=== PATIENT | male | born 1970 | race Caucasian/White ===

== ENCOUNTER → 2019-11-02 11:51 | Outpatient (CLI) | payer SELFPAY ==
[2019-11-02 11:45] VITALS: BMI 39.6
[2019-11-02 12:54] LABS: Hemoglobin A1c 7.5 % (4.2-6.3)
== END ==
LOC: MTLAB 11:56
PROVIDERS: Referring Provider Physician Assistant Surgical; Visit Provider Physician Assistant Surgical
DX: Z02.89 Encounter for other administrative examinations (principal)
CPT/HCPCS: 36415; 83036

== ENCOUNTER 2019-11-05 10:20 | Day surgery (SDC) | payer BC, SELFPAY ==
[2019-11-02 11:45] VITALS: BMI 39.6
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
[2019-11-05] VITALS (7 sets, daily range): BP systolic 114–129; BP diastolic 74–85; PULSE 61–68; RESP 16; TEMP 36.4–36.9; O2SAT 94–99; BMI 39.6
[2019-11-05 10:45] LABS: Bedside Glucose 114 mg/dL (70-110)
[2019-11-05] MEDS: Lactated Ringers 1,000 ML 75 ML IV (10:58)
--- NOTE | 2019-11-05 12:00 | EGD_PTH ---
PATIENT: UMER CLIFFORD LOC: EN U#:[id number] AGE/SX: 49/M ROOM: RE11/05/[address]: Dr. Teetee Lambert MD : 1970 BED: DIS: 11/05/2019 SPEC #: [id number] RECD: 11/05/19 13:25 STATUS: BRIANNA PIA #: [id number] CAM[place]: 11/05/19 12:[address]: Teetee Lambert DEPT: SURGICAL PATHOLOGY RECD BY: Eagle Velazquez ENTERED: 11/05/19 13:31 SP TYPE: EGD BIOPSY OTHR DR: Chantal Barron, MONE Tissues: A - Duodenum, NOS B - Duodenum, NOS C - Gastric mucous membrane D - Gastric mucous membrane E - Sigmoid colon biopsy Procedures: Special Stain Group II Surgery Specimen Level IV Alcian Blue/PAS (control) HEADER OPERATION: Colonoscopy, EGD ([facility] [place]) PRE-OP DIAGNOSIS: Abdomen pain; history lap band surgery, loose stool/diarrhea TISSUE SUBMITTED: A - Second portion duodenum biopsy, B - Duodenal biopsy, C - Antral biopsy for histo and H. pylori, D - GE junction biopsy, E - Sigmoid polyp biopsy MICROSCOPIC DIAGNOSIS A. Second portion duodenum, biopsy: Fragments of small intestinal mucosa, no pathologic diagnosis. B. Duodenal biopsy: A fragment of small intestinal mucosa, no pathologic diagnosis. C. Antral biopsy: Fragments of gastric mucosa with minimal chronic inflammation. See comment. D. GE junction, biopsy: Fragments of gastroesophageal mucosa with acute and chronic inflammation. Intestinal metaplasia (goblet cell metaplasia) is not identified. See comment. E. Sigmoid polyp, biopsy: Fragments of colonic mucosa with focal changes consistent with early tubular adenoma. SJ:rg 11/06/19 COMMENT C. The results of immunohistochemistry for Helicobacter pylori will be reported separately ([id number]). D. Alcian blue/PAS stain with matched control is used in the evaluation of the specimen. MICROSCOPIC DESCRIPTION Slides are reviewed. GROSS DESCRIPTION A - Received in fixative is one container labeled with the patient's name and designated second portion duodenum biopsy. The specimen consists of two irregular fragments of light anand soft tissue that in aggregate measure 0.5 x 0.5 x 0.1 cm. The specimen is totally submitted in one cassette. B - Received in fixative is one container labeled with the patient's name and designated duodenal biopsy. The specimen consists of one irregular fragment of light anand soft tissue that measures 0.5 x 0.2 x 0.1 cm. The specimen is totally submitted in one cassette. C - Received in fixative is one container labeled with the patient's name and designated antral biopsy. The specimen consists of multiple irregular fragments of light anand soft tissue that in aggregate measure 0.3 x 0.2 x 0.1 cm. The specimen is totally submitted in one cassette. D - Received in fixative is one container labeled with the patient's name and designated GE junction biopsy. The specimen consists of multiple irregular fragments of light anand soft tissue that in aggregate measure 1.5 x 0.2 x 0.1 cm. The specimen is totally submitted in one cassette. E - Received in fixative is one container labeled with the patient's name and designated sigmoid polyp biopsy. The specimen consists of two irregular fragments of light anand soft tissue that in aggregate measure 0.6 x 0.5 x 0.1 cm. The specimen is totally submitted in one cassette. / AM:chandan 11/05/19 TC: CPT: 70771 x5, 88793
--- NOTE | 2019-11-05 12:00 | IMM_PTH ---
PATIENT: UMER CLIFFORD LOC: EN U#:[id number] AGE/SX: 49/M ROOM: RE11/05/[address]: Dr. Teetee Lambert MD : 1970 BED: DIS: 11/05/2019 SPEC #: [id number] RECD: 11/05/19 14:33 STATUS: BRIANNA REAntwan #: [id number] CAMDEN: 11/05/19 12:[address]: Teetee Lambert DEPT: IMMUNOHISTOCHEMISTRY RECD BY: Meri Patel ENTERED: 11/05/19 14:34 SP TYPE: IMMUNO OTHR DR: MONE Solis Tissues: C - Stomach, NOS Procedures: H Pylori (initial) PHYSICIAN & INSTITUTION [place] [id number] SPECIMEN INFORMATION: Tissue Source: C - Antral biopsy Clinical Info: Abdomen pain, history lap band surgery, loose stool/diarrhea Specimen Number: [id number] CPT code: 98262 METHODOLOGY: Deparaffinized sections of prefer/formalin-fixed tissue or PAP/DQ stained slides are incubated with monoclonal/polyclonal antibodies/oligonucleotide probes. Localization is made via biotin free immunoperoxidase method. Appropriate controls are performed and reacted as expected. Results on target cell population are indicated in the following table: RESULTS: ANTIBODY / CLONE RESULT Block C H Pylori (polyclonal) negative These tests were developed and their performance characteristics determined by [facility]. They may not have been cleared or approved by the U.S. Food and Drug Administration. The FDA has determined that such clearance or approval is not necessary. INTERPRETATION: C. Antral biopsy: Negative for Helicobacter pylori organisms. SJ:chandan 11/06/19
--- NOTE | 2019-11-05 12:13 | OP.EGD_ITS ---
Patient Name: Alexander Bailey Procedure Date: 11/05/2019 11:00 AM Date of : 1970 Age: 49 Procedure: Upper GI endoscopy Indications: Generalized abdominal pain Providers: Teetee Lambert MD Referring MD: Teetee Lambert MD Medicines: See the Anesthesia note for documentation of the administered medications Patient Profile: Refer to note in patient chart for documentation of history and physical. Complications: No immediate complications. Procedure: Pre-Anesthesia Assessment: - see anesthesia note After obtaining informed consent, the endoscope was passed under direct vision. Throughout the procedure, the patient's blood pressure, pulse, and oxygen saturations were monitored continuously. The gastroscope was introduced through the mouth, and advanced to the second part of duodenum. The upper GI endoscopy was accomplished without difficulty. The patient tolerated the procedure well. Scope In: 11:20:46 AM Scope Out: 11:31:52 AM Total Procedure Duration Time 0 hours 11 minutes 6 seconds Findings: The second portion of the duodenum was normal. Biopsies were taken with a cold forceps for histology to rule out celiac sprue. The duodenal bulb appeared mildly erythematous - biopsies were taken with cold forceps for histology. Verification of patient identification for the specimens was done by the nurse. Estimated blood loss was minimal. Striped mildly erythematous mucosa without bleeding was found in the gastric antrum. Biopsies were taken with a cold forceps for histology. Estimated blood loss was minimal. The Z-line was irregular. Biopsies were taken with a cold forceps for histology. Verification of patient identification for the specimen was done by the nurse. Estimated blood loss was minimal. No hiatal hernia was noted Impression: - Normal second portion of the duodenum. Biopsied. - Erythematous mucosa in the antrum. Biopsied. - Z-line irregular. Biopsied. Recommendation: - Discharge patient to home (ambulatory). - Resume previous diet. - Return to physician operational assistant in 1 week. - Continue present medications. Procedure Code(s): --- Professional --- 02935, Esophagogastroduodenoscopy, flexible, transoral; with biopsy, single or multiple Diagnosis Code(s): --- Professional --- K31.89, Other diseases of stomach and duodenum K22.8, Other specified diseases of esophagus R10.84, Generalized abdominal pain CPT copyright 2017 [employer]. All rights reserved. The codes documented in this report are preliminary and upon pillow agent review may be revised to meet current compliance requirements. MD Teetee Bull MD 11/05/2019 12:13:23 PM This report has been signed electronically. Number of Addenda: 0 Note Initiated On: 11/05/2019 11:00 AM
--- NOTE | 2019-11-05 12:16 | OP.COLON_ITS ---
Patient Name: Alexander Bailey Procedure Date: 11/05/2019 11:34 AM Date of : 1970 Age: 49 Procedure: Colonoscopy Indications: Generalized abdominal pain Providers: Teetee Lambert MD Referring MD: Teetee Lambert MD Medicines: See the Anesthesia note for documentation of the administered medications Patient Profile: Refer to note in patient chart for documentation of history and physical. Last Colonoscopy: several years ago. Complications: No immediate complications. Procedure: Pre-Anesthesia Assessment: - see anesthesia note After I obtained informed consent, the scope was passed under direct vision. Throughout the procedure, the patient's blood pressure, pulse, and oxygen saturations were monitored continuously. The Colonoscope was introduced through the anus and advanced to the cecum, identified by appendiceal orifice and ileocecal valve. The colonoscopy was performed without difficulty. The patient tolerated the procedure well. The quality of the bowel preparation was adequate to identify polyps 6 mm and larger in size. Scope In: 11:35:51 AM Scope Withdrawal Time 0 hours 19 minutes 45 seconds Scope Out: 12:07:02 PM Total Procedure Duration Time 0 hours 31 minutes 11 seconds Findings: The perianal and digital rectal examinations were normal. Pertinent negatives include normal sphincter tone. A 3 to 8 mm polyp was found in the distal sigmoid colon. The polyp was sessile. The polyp was removed with a cold biopsy forceps. Resection and retrieval were complete. Verification of patient identification for the specimen was done by the nurse. Estimated blood loss was minimal. Non-bleeding internal hemorrhoids were found. Impression: - One 3 to 8 mm polyp in the distal sigmoid colon, removed with a cold biopsy forceps. Resected and retrieved. - Non-bleeding internal hemorrhoids. Recommendation: - Repeat colonoscopy date to be determined after pending pathology results are reviewed for surveillance based on pathology results. - Return to physician field assistant in 1 week. - Continue present medications. Procedure Code(s): --- Professional --- 85633, Colonoscopy, flexible; with biopsy, single or multiple Diagnosis Code(s): --- Professional --- D12.5, Benign neoplasm of sigmoid colon K64.8, Other hemorrhoids R10.84, Generalized abdominal pain CPT copyright 2017 [employer]. All rights reserved. The codes documented in this report are preliminary and upon pharmacy retail support specialist review may be revised to meet current compliance requirements. MD Teetee Bull MD 11/05/2019 12:15:55 PM This report has been signed electronically. Number of Addenda: 0 Note Initiated On: 11/05/2019 11:34 AM
== END 2019-11-05 12:58 | disposition home or self-care (01) ==
LOC: EN 10:25 → AC 10:26
PROVIDERS: Family Provider Registered Nurse; PCP Registered Nurse; Referring Provider Surgery; Visit Provider Surgery
PROC: 0DJD8ZZ Inspection of Lower Intestinal Tract, Via Natural or Artificial Opening Endoscopic (ICD-10-PCS; CPT 45378; principal; 2019-11-05 11:55)
DX: K29.50 Unspecified chronic gastritis without bleeding (principal); D12.5 Benign neoplasm of sigmoid colon; K64.8 Other hemorrhoids; E11.9 Type 2 diabetes mellitus without complications; F41.9 Anxiety disorder, unspecified; G47.30 Sleep apnea, unspecified; F17.200 Nicotine dependence, unspecified, uncomplicated; Z98.84 Bariatric surgery status; Z79.84 Long term (current) use of oral hypoglycemic drugs; Z79.899 Other long term (current) drug therapy
CPT/HCPCS: 43239; 45380; 82962; 88305; 88313; 88342; J7120

== ENCOUNTER 2019-12-10 22:41 | Emergency (ER) | payer OTHER, BC, SELFPAY ==
[2019-11-05 10:40] VITALS: BMI 39.6
[2019-12-10 22:42] VITALS: BP 133/83; PULSE 84; RESP 20; TEMP 35.7; O2SAT 96; BMI 39.6
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
--- NOTE | 2019-12-10 23:01 | RAD_ITS ---
STUDY: X-RAY - LUMBAR SPINE REASON FOR EXAM: Male, 49 years old. FELL THIS MORNING ON ICE. C/O LOW BACK PAIN RADIATING TO HIS HIPS, NUMBNESS IN HIS FEET TECHNIQUE: 3 view(s) of the lumbar spine were obtained. COMPARISON: None FINDINGS: There is straightening of the normal lumbar lordosis. There is no substantial scoliosis. There is a normal alignment of the vertebrae. Minimal spondylosis of the endplates. Normal disc space heights. Facet arthropathy L4-5, 5 S1, less L3-4. Port-like device over the left mid abdomen. Bilateral mid abdominal calcification, nephrolithiasis is not excluded. RAD/Lumbar Spine 2 or 3 Views IMPRESSION: Degenerative changes most distended along the facet joints. There is no acute displaced fracture or dislocation. Other nonacute findings as outlined above. Electronically Signed: Jessica Marie MD at 23:58 EST , Service support ,
--- NOTE | 2019-12-10 23:01 | CT_ITS ---
STUDY: CT CERVICAL SPINE WITHOUT CONTRAST REASON FOR EXAM: Male, 49 years old. S/P FALL THIS AM WITH HEAD/NECK/ SHOULDER PAIN RADIATION DOSAGE (If Supplied By Facility): CTDIvol = ( 25.14 ) mGy, DLP = ( 576.16 ) mGycm TECHNIQUE: High resolution transaxial imaging was performed without contrast material. Sagittal and coronal images were reconstructed. Individualized dose optimization techniques were used for this CT. COMPARISON: None FINDINGS: Normal craniovertebral junction. Normal anterior atlantoaxial articulation. Normal odontoid process. There is straightening of the normal cervical lordosis. Normal vertebral bodies and posterior osseous elements. C2-3: Mild left facet arthropathy. C3-4: Arthropathy of the right uncovertebral joint with large spurring causing severe right neural foraminal narrowing. C4-5: Arthropathy of the right uncovertebral joint with spurring causing moderate right neural foraminal narrowing. C5-6: Arthropathy of the bilateral uncovertebral joint with moderate left, moderate to severe right neural foraminal narrowing. C6-7: There is sclerosis of the endplate, anterior and posterior spurring, loss of the disk height, severe left, moderate right uncovertebral of the bilateral apophyseal joints. There is stenosis of the spinal canal. There is severe left, moderate right narrowing of the neuroforamina. C7-T1: Mild arthropathy of the uncovertebral joints. Normal visualized soft tissue structures. CT/Spine Cervical without Contras IMPRESSION: Multilevel degenerative changes, as described above. There is no acute displaced fracture or dislocation. There is straightening of the normal lordotic curve, a nonspecific finding, which may be due to positioning or which might be due to muscle spasm. Electronically Signed: Jessica Marie MD at 23:56 EST , Service support ,
--- NOTE | 2019-12-10 23:02 | ED.VIS.GEN ---
History of Present Illness Chief Complaint: Fall Narrative: Patient is a 49-year-old male who presents after a fall. Twelve hours ago while [place] of state for work he was walking down customers driveway. He had a patch of ice. He states he slid about 4 feet before falling backwards and landing on his lower back and shoulders. He believes he was turned to the left a little bit as the pain is worse on the left side. Currently he complains of lower back pain with radiation into the buttocks and hips. He has intermittently had numbness in his feet which he does not have currently. He complains of pain on the left side of the neck radiating towards the shoulder. It is painful to turn his head in either direction. He also complains of a headache. He is not anticoagulated. There was no loss of consciousness at the time of the fall. No vomiting. He denies chest pain or difficulty breathing. No abdominal pain. He otherwise denies any recent illness. Past Medical History - Allergies and Home Meds Allergies/Adverse Reactions: Allergies Sulfa (Sulfonamide Antibiotics) Allergy (Verified 12/10/19 22:41) Swelling Primary Care Physician: Chantal Barron NP-C [Primary Care Provider] - Past Medical History: - - Diabetes Smoking Status: Current every day smoker Review of Systems All systems negative except as indicated General: Denies: Fever Eyes: Denies: Visual changes - bilaterally ENT: Denies: Bilateral ear pain Cardiovascular: Denies: Chest pain Respiratory: Denies: Dyspnea Gastrointestinal: Denies: Abdominal pain, Nausea, Vomiting Musculoskeletal: Reports: Neck pain, Back pain Skin: Denies: Rash Neurological: Reports: Headache Hematologic: Denies: Easy bruising Allergy: Denies: Uticaria Physical Exam Vital Signs/Narrative: Vital Signs Temp Pulse Resp BP Pulse Ox 12/10/19 22:42 96.3 F L 84 20 H 133/83 H 96 Inital Vital Signs reviewed: Yes General: Well nourished, Well developed Head: Normocephalic, Atraumatic, - - Occipital scalp tenderness, no palpable skull fracture Eyes: EOMI ENT: Moist mucous membranes Neck: - - Patient has bilateral paraspinal neck tenderness which is worse on the left side extending in the distribution of the trapezius Cardiovascular: Regular rate, Regular rhythm Respiratory: No distress, CTA bilaterally Abdomen: Soft, Nontender, Nondistended Back: - - Midline and paraspinal lumbar tenderness Extremities: - - Active full range of motion x4, no tenderness of the extremities Skin: Normal color Neurological: Alert, - - GCS 15 with no focal or lateralizing neurological deficits Psychological: Normal affect Diagnostic/Tx/Re-eval Impressions Brain CT 12/10/19 23:01 IMPRESSION: Normal unenhanced CT scan of the brain. Mild soft tissue injury. Electronically Signed: Jessica Marie MD at 23:48 EST , Service support , Cervical Spine CT 12/10/19 23:01 IMPRESSION: Multilevel degenerative changes, as described above. There is no acute displaced fracture or dislocation. There is straightening of the normal lordotic curve, a nonspecific finding, which may be due to positioning or which might be due to muscle spasm. Electronically Signed: Jessica Marie MD at 23:56 EST , Service support , Lumbar Spine X-Ray 12/10/19 23:01 IMPRESSION: Degenerative changes most distended along the facet joints. There is no acute displaced fracture or dislocation. Other nonacute findings as outlined above. Electronically Signed: Jessica Marie MD at 23:58 EST , Service support , 12/10/19 23:01 Brain/Head without Contrast [CT] Stat Lumbar Spine 2 or 3 Views [RAD] Stat Spine Cervical without Contras [CT] Stat - Medical Decision Making Imaging negative for acute fractures as above. Patient was advised on supportive care. He was provided with prescriptions for naproxen and Flexeril. He will follow-up with Worker's Comp. Patient discharged. ED Disposition - Plan for ED Patient: Disposition: Home or Assisted Living Diagnosis: Lumbosacral strain, Cervical strain, Closed head injury Instructions: FALL, Mechanical, Neck Sprain/Strain, Back Sprain/Strain, HEAD INJURY, No Wake-Up (Adult) Prescriptions: cycloBENZAPRine HCl [Flexeril] 10 mg PO TID PRN #20 tab PRN Reason: Muscle Spasm Prescription Printed Naproxen [Naprosyn] 500 mg PO BID #20 tab Prescription Printed Referrals: Chantal Barrno, ADJUNCT INSTRUCTOR CHEMISTRY-C [Primary Care Provider] -
[2019-12-10] MEDS: Naproxen 500 MG Tablet PO (23:16)
[2019-12-11] MEDS: cycloBENZAPRine HCl 10 MG Tablet PO (00:30)
[2019-12-11 00:32] VITALS: BP 132/79; PULSE 81; RESP 18; O2SAT 100
--- NOTE | 2019-12-11 00:32 | ED.RN ---
THIS NURSE REVIEWED D/C INSTRUCTIONS WITH PT AND LIVE. BOTH VERBALIZED UNDERSTANDING OF INSTRUCTIONS. PT DENIES FURTHER NEEDS OR QUESTIONS AT THIS TIME.
== END 2019-12-11 00:34 | disposition home or self-care (01) ==
PROVIDERS: Emergency Provider Emergency Medicine; PCP Registered Nurse
DX: S39.012A Strain of muscle, fascia and tendon of lower back, initial encounter (principal); S16.1XXA Strain of muscle, fascia and tendon at neck level, initial encounter; S09.90XA Unspecified injury of head, initial encounter; E11.9 Type 2 diabetes mellitus without complications; F17.200 Nicotine dependence, unspecified, uncomplicated; Z79.84 Long term (current) use of oral hypoglycemic drugs; W00.0XXA Fall on same level due to ice and snow, initial encounter; Y93.01 Activity, walking, marching and hiking; Y92.008 Other place in unspecified non-institutional (private) residence as the place of occurrence of the external cause; Y99.0 Civilian activity done for income or pay
CPT/HCPCS: 70450; 72100; 72125; 99283

== ENCOUNTER 2020-09-18 05:40 | Emergency (ER) | payer BC, SELFPAY ==
[2019-12-19 06:29] VITALS: BMI 39.5
[2020-09-18 05:40] VITALS: BP 137/86; PULSE 76; RESP 16; TEMP 36.1; O2SAT 97; BMI 40.6
--- NOTE | 2020-09-18 05:56 | RAD_ITS ---
HISTORY: S/P FALLC/O BILAT ANTERIOR KNEE PAIN AND PAIN WITH LIMITED ROM RT SHOULDER COMPARISON: None FINDINGS: # of images incl. paperwork: 4 XR Knee Complete 4 Views or More: Right BONE AND JOINTS: No acute fracture or subluxation. Enthesophyte at the insertion of the quadriceps tendon on the patella Osteophyte formation seen at the lateral patella SOFT TISSUES: Minimal soft tissue swelling anterior to the patella and proximal patellar tendon in the subcutaneous tissue No radiopaque foreign body. RAD/Knee 4 or More Views IMPRESSION: No acute pathology If symptoms persist, repeat study in 10-14 days or sooner if clinically indicate at 0649 Reported and signed by: Carolyn Spencer DO Electronically Signed: Carolyn Spencer DO at 6:47 EST Tel , Service support ,
--- NOTE | 2020-09-18 05:57 | RAD_ITS ---
STUDY: X-RAY - LEFT TIBIA AND FIBULA REASON FOR EXAM: Male, 50 years old. S/P FALL -- C/O BILAT ANTERIOR KNEE PAIN AND PAIN WITH LIMITED ROM RT SHOULDER -- CONCERN FOR PINE DISLODGMENT TECHNIQUE: 2 view(s) of the tibia and fibula were obtained. COMPARISON: None. FINDINGS: No acute fracture or dislocation. Pin fixation is seen overlying the lateral tibia. The soft tissue structures are unremarkable. RAD/Tibia & Fibula 2 Views IMPRESSION: No acute fracture or dislocation. Electronically Signed: Geraldo Spence, at 6:51 EST Tel , Service support ,
--- NOTE | 2020-09-18 05:57 | RAD_ITS ---
HISTORY: S/P FALLC/O BILAT ANTERIOR KNEE PAIN AND PAIN WITH LIMITED ROM RT SHOULDER COMPARISON: None FINDINGS: # of images incl. paperwork: 5 XR Shoulder Min 2 Views: Right BONE AND JOINTS: No acute fracture or subluxation. Acromioclavicular arthropathy Bone anchors are seen within the right humeral head. SOFT TISSUES: Unremarkable. No radiopaque foreign body. The visualized right lung apex is unremarkable RAD/Shoulder min 2 Views IMPRESSION: No acute pathology If symptoms persist, repeat study in 10-14 days or sooner if clinically indicate at 0649 Reported and signed by: Carolyn Spencer DO Electronically Signed: Carolyn Spencer DO at 6:48 EST Tel , Service support ,
--- NOTE | 2020-09-18 05:59 | ED.DCSUM_ITS ---
History of Present Illness Chief Complaint: Fall Informant: Patient Narrative: 50-year-old male presenting with bilateral knee pain as well as right shoulder pain. Patient states that he had a mechanical fall while in the shower. He states that his left leg slid forward and externally rotated. He feels that his previous left ACL repair pin in his tibia was dislodged. Patient also has right lateral knee pain from hitting this on the tub when he slid. Patient states he tried to catch himself with his right arm and feels he may have torn his rotator cuff again. He had previous surgery many years ago at an outside facility. His left knee ACL repair was performed in [place] when he lived there 3 years ago. Patient denies head injury or LOC. 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 Past Medical History - Allergies and Home Meds Allergies/Adverse Reactions: Allergies Sulfa (Sulfonamide Antibiotics) Allergy (Verified 09/18/20 05:44) Swelling Primary Care Physician: Harrison Villela MD [STAFF PHYSICIAN] - Chantal Barron NP, CHINESE LANGUAGE PROFESSOR-C [Primary Care Provider] - Past Medical History: - - Diabetes, anxiety Surgical History: - - Left knee ACL repair, right shoulder rotator cuff repair Smoking Status: Current every day smoker Alcohol: Occasional Drugs: None Review of Systems General: Denies: Chills, Fever, Sweats Eyes: Denies: Visual changes - bilaterally, Diplopia ENT: Denies: Rhinorrhea, Sore throat Cardiovascular: Denies: Chest pain, Palpitations Respiratory: Denies: Dyspnea, Cough, Dyspnea on exertion Genitourinary: Denies: Dysuria, Hematuria, Frequency Musculoskeletal: Reports: - - Right shoulder pain, bilateral knee pain Skin: Denies: Rash, Wounds Neurological: Denies: Headache, Weakness, Numbness Physical Exam Vital Signs/Narrative: Vital Signs Temp Pulse Resp BP Pulse Ox 09/18/20 05:40 96.9 F L 76 16 137/86 H 97 Inital Vital Signs reviewed: Yes General: Well nourished, No Acute Distress Head: Normocephalic, Atraumatic Eyes: Perrl ENT: Moist mucous membranes, No rhinorrhea Cardiovascular: Regular rate, Regular rhythm Respiratory: No distress, CTA bilaterally Extremities: Tenderness - Right knee has tenderness to palpation along the right lateral joint line. No patellar tenderness. No obvious joint effusion. Extensor mechanism is intact. Left knee has inferiolateral tenderness on the proximal tibia there appears to be a palpable foreign body where stated ACL anchor screw is., - - Tenderness to palpation of the right shoulder anteriorly near the AC joint. Patient is able to flex his shoulder up to 45 degrees. 1 left shoulder is externally rotated he is only able to abduct his shoulder up to 45 degrees. R Neurological: Alert, Oriented x3 Psychological: Normal affect, Normal Mood Diagnostic/Tx/Re-eval Clinical Impression(s) from Imaging Studies Knee X-Ray 09/18/20 05:56 IMPRESSION: No acute pathology If symptoms persist, repeat study in 10-14 days or sooner if clinically indicate at 0649 Reported and signed by: Carolyn Spencer DO Electronically Signed: Carolyn Spencer DO at 6:47 EST Tel , Service support , Shoulder X-Ray 09/18/20 05:57 IMPRESSION: No acute pathology If symptoms persist, repeat study in 10-14 days or sooner if clinically indicate at 0649 Reported and signed by: Carolyn Spencer DO Electronically Signed: Carolyn Spencer DO at 6:48 EST Tel , Service support , Tibia/Fibula X-Ray 09/18/20 05:57 IMPRESSION: No acute fracture or dislocation. Electronically Signed: Geraldo Spence at 6:51 EST Tel , Service support , Knee X-Ray 09/18/20 06:00 IMPRESSION: Tricompartmental osteoarthritis as discussed There is a staple that is seen with just the tip in the region of the fibular head.. No acute fracture or dislocation. There is lateral subluxation of the patella mild at 0647 Reported and signed by: Carolyn Spencer DO Electronically Signed: Carloyn Spencer DO at 6:46 EST Tel , Service support , - Medical Decision Making Presents after mechanical fall with bilateral knee pain, right shoulder pain, concern for dislodged ACL anchor pin. Right shoulder x-ray is normal however his exam is consistent with a rotator cuff tear. Right knee x-ray is negative. Left knee shows dislodgment of the anchor pin. It is not in the knee joint. Discussed with Dr. Villela who will see him in follow-up. Patient was given Percocet for pain. He is offered crutches and a knee immobilizer. He is given return precautions. Patient is stable for discharge at this time. Impression: 1. Mechanical fall 2. Right knee contusion 3. Dislodgment of left ACL anchor pin 4. Right rotator cuff tear ED Disposition - Plan for ED Patient: Disposition: Home or Assisted Living Instructions: Treating Anterior Cruciate Ligament (ACL) Injuries, ED Mechanical Fall, ED Torn Rotator Cuff Prescriptions: Oxycodone HCl/Acetaminophen [Percocet 5/325] 1 tab PO Q6H PRN PRN 3 Days #12 tab PRN Reason: Pain Prescription Printed Referrals: Chantal Barron NP, CHINESE LANGUAGE PROFESSOR-C [Primary Care Provider] - Harrison Villela MD [STAFF PHYSICIAN] -
--- NOTE | 2020-09-18 06:00 | RAD_ITS ---
HISTORY: S/P FALLC/O BILAT ANTERIOR KNEE PAIN AND PAIN WITH LIMITED ROM RT SHOULDER COMPARISON: None FINDINGS: # of images incl. paperwork: 4 XR Knee Complete 4 Views or More: Left BONE AND JOINTS: No acute fracture or subluxation. Tricompartmental osteoarthritis with marginal osteophytes. Minimal lateral subluxation of patella. There is patellofemoral joint space narrowing with osteophytes. Enthesophyte at the insertion of the patellar tendon on the patella. There is also minimal fragmentation of the tibial tuberosity that appears chronic and may be secondary to prior Lisa Grier There is a staple that is seen overlying the lateral fibular head. Only the tip of the staple is seen in the region of the fibular head. SOFT TISSUES: Unremarkable RAD/Knee 4 or More Views IMPRESSION: Tricompartmental osteoarthritis as discussed There is a staple that is seen with just the tip in the region of the fibular head.. No acute fracture or dislocation. There is lateral subluxation of the patella mild at 0647 Reported and signed by: Carolyn Spencer DO Electronically Signed: Carolyn Spencer DO at 6:46 EST Tel , Service support ,
[2020-09-18] MEDS: oxyCODONE 5 MG Tablet PO (06:03)
[2020-09-18] MEDS: Ketorolac 15 MG/ML Vial IM (06:04)
[2020-09-18 07:30] VITALS: BP 138/74; PULSE 62; RESP 15; O2SAT 98
== END 2020-09-18 07:30 | disposition home or self-care (01) ==
PROVIDERS: Emergency Provider Student in an Organized Health Care Education/Training Program; PCP Registered Nurse
DX: S80.01XA Contusion of right knee, initial encounter (principal); T84.428A Displacement of other internal orthopedic devices, implants and grafts, initial encounter; S46.011A Strain of muscle(s) and tendon(s) of the rotator cuff of right shoulder, initial encounter; E11.9 Type 2 diabetes mellitus without complications; F41.9 Anxiety disorder, unspecified; Z79.899 Other long term (current) drug therapy; F17.200 Nicotine dependence, unspecified, uncomplicated; W18.30XA Fall on same level, unspecified, initial encounter; Y93.E1 Activity, personal bathing and showering; Y92.002 Bathroom of unspecified non-institutional (private) residence as the place of occurrence of the external cause; Y99.8 Other external cause status
CPT/HCPCS: 73030; 73564; 73590; 96372; 99284

== ENCOUNTER 2020-11-26 02:40 | Emergency (ER) | payer BC, SELFPAY ==
[2020-11-26 02:41] VITALS: BP 138/90; PULSE 88; RESP 20; TEMP 36; O2SAT 98; BMI 40.7
--- NOTE | 2020-11-26 03:03 | EKG12_ITS ---
Test Reason : DYSRHYTHMIA Blood Pressure : / mmHG Vent. Rate : 074 BPM Atrial Rate : 074 BPM P-R Int : 170 ms QRS Dur : 090 ms QT Int : 370 ms P-R-T Axes : 042 -50 020 degrees QTc Int : 410 ms Normal sinus rhythm Low voltage QRS Left anterior fascicular block Cannot rule out Inferior infarct (masked by fascicular block?) , age undetermined Abnormal ECG Confirmed by JILL MONSIVAIS, PATRICIA ([id number]), editor greeting card CHINTAN DE LOS SANTOS ([id number]) on 11/26/2020 10:50:39 AM Referred By: JAH Confirmed By:PATRICIA MELCHOR MD
--- NOTE | 2020-11-26 03:03 | RAD_ITS ---
STUDY: X-RAY - RIGHT SHOULDER REASON FOR EXAM: Male, 50 years old. PATIENT STATED HE ROLLED OVER IN BED TONIGHT AND GOT A SEVERE STABBING PAIN IN HIS RT SHOULDER AND HIS RT ARM TINGLES TECHNIQUE: 4 view(s) of the shoulder. COMPARISON: None. FINDINGS: There is mild degenerative arthrosis of the glenohumeral articulation. Normal acromioclavicular joint. Normal acromion. Postoperative changes at the humeral head suggestive of prior rotator cuff repair. Normal humeral head and visualized proximal humerus. The soft tissue structures are unremarkable. There is no demonstrated fracture. Normal visualized pulmonary apex. RAD/Shoulder min 2 Views IMPRESSION: Mild degenerative disease along with postoperative changes as described. No acute fracture or subluxation. Electronically Signed: Layne Rubio MD at 3:31 EST , Service support ,
[2020-11-26] MEDS: Ibuprofen 400 MG Tablet 800 MG PO (03:09)
--- NOTE | 2020-11-26 03:16 | ED.DCSUM_ITS ---
- ER Visit Summary Date of Service: 11/26/20 Chief Complaint: Upper back pain History of Present Illness: The patient is a [address] Villela and Dr. Ozuna. He reports that he tore his right biceps in August 2020. He has not had surgery or physical therapy for this. He reports that he seemed to be doing fine until he woke from sleep approximately 1 hour ago with a stabbing pain in the right side of his upper back and numbness in his right forearm and hand. Patient describes the pain as a sharp, stabbing pain is 10 out of 10 at worst 9- 10 currently. Is worsened by movement of his right arm. Is relieved by rest. He denies any other neurologic symptoms. He does not have a headache, weakness, change in his speech, vertigo or change in his vision. He denies any chest pain currently. He denies any chest pain or change in dyspnea exertion in the past month. Patient denies any recent injury. He has not fallen, been in a car accident, or had a change in activity. He is unsure what position he was in when he woke from sleep with this pain. Physical Examination: Vitals: Stable. Afebrile. General: Well-nourished and well-developed. Head: Normocephalic atraumatic. Neck: Supple, no lymphadenopathy. No JVD. Nontender. Cardiovascular: Regular rate and rhythm. No murmurs. Respiratory: No respiratory distress. Clear to auscultation bilaterally. Abdominal: Soft, nontender, nondistended, normal bowel sounds. No guarding, rebound, or peritoneal signs. Back: Moderate tenderness palpation just medial to the right scapula and the inferior portion of the scapula that does reproduce his pain. Extremities: Nontender, no edema. No tenderness to palpation over the deltoid or the biceps tendon. He has a 2+ radial pulse. He has decrease sensation to light touch over the anterior surface of the right forearm and diffusely over the entire hand. He has normal sensation light touch on the posterior surface of his right arm. He has 5 out of 5 high wire artist bilaterally. He has normal strength in the median, radial, and ulnar nerve distributions on the right. Skin: Normal color, no rash. Neurologic: Alert and oriented ?3. Cranial nerves II through XII are intact. Normal strength and sensation. Psych: Normal affect. Test Results: EKG is sinus at 74 with inferior Q waves and nonspecific ST changes. There is no old EKG for comparison. CBC is normal. Chem-7 shows a glucose 148. Troponin is negative. Clinical Impression(s) from Imaging Studies Shoulder X-Ray 11/26/20 03:03 IMPRESSION: Mild degenerative disease along with postoperative changes as described. No acute fracture or subluxation. Electronically Signed: Layne Rubio MD at 3:31 EST , Service support , Chest X-Ray 11/26/20 03:30 IMPRESSION: Decreased inspiration with vascular crowding versus mild vascular congestion. Clinical correlation needed. Electronically Signed: Layne Rubio MD at 3:56 EST , Service support , Emergency Department Course and Treatment: This does not seem to be cardiac in etiology. His pain is reproduced with palpation and movement of his right arm. He denies any chest pain. I do not believe that this is a dissection for the same reasons. He also has a 2+ radial pulse. I also do not think that this is a stroke. His NIH scale is 1 for paresthesias in his right arm. However, I suspect that this is really more of a peripheral neuropathy and has to do with his brachial plexus. That being said with Q waves inferiorly on his EKG and no old for comparison a cardiac work-up was undertaken. This was negative. It is unclear to me at this point how long he has had inferior Q waves. Treatment Plan: Patient will be discharged with a prescription for 10 [place]. Instructed to follow-up with Dr. Villela as soon as possible. Follow-up with his primary care's physician within 3 to 5 days for another exam. Return to the emergency department for any worsening symptoms. Disposition: To home in improved and stable condition. Impression: 1. Right upper back pain, acute. 2. Paresthesias right arm/hand. 3. Inferior Q waves on EKG. This note was generated with [employer] software. It may contain incorrect words, spelling, and punctuation that were not noted in review of the chart prior to signing ED Disposition - Plan for ED Patient: Instructions: ED Shoulder Pain, Uncertain Cause Prescriptions: Hydrocodone Bitart/Apap 5-325 [[place] 5MG-325MG] 1 tablet PO Q4H PRN PRN 2 Days #10 tablet PRN Reason: Pain Referrals: Chantal Barron WOOD DOWEL MACHINE OPERATOR, WOOD DOWEL MACHINE OPERATOR-C [Primary Care Provider] - 3-5 Days Harrison Villela MD [STAFF PHYSICIAN] - As soon as possible
--- NOTE | 2020-11-26 03:30 | RAD_ITS ---
STUDY: X-RAY CHEST REASON FOR EXAM: Male, 50 years old. C/O RT SHOULDER PAIN -- ABNORMAL EKG TECHNIQUE: Single AP portable view of the chest. COMPARISON: None. FINDINGS: The lungs are underexpanded with vascular crowding. There is no demonstrated pleural abnormality. Normal size heart. Normal mediastinum and issac. Normal visualized pulmonary arteries. Normal visualized aortic arch and descending thoracic aorta. Normal visualized thoracic spine. Normal visualized ribs, clavicles, and shoulders. There is no demonstrated abnormality of the visualized soft tissue structures of the upper abdomen. RAD/Chest 1 View (Portable) IMPRESSION: Decreased inspiration with vascular crowding versus mild vascular congestion. Clinical correlation needed. Electronically Signed: Layne Rubio MD at 3:56 EST , Service support ,
[2020-11-26 03:43] VITALS: O2SAT 96
[2020-11-26 03:46] LABS: Absolute Neutrophil Count 3.7 X10^3/uL (2.0-7.7); Basophil# 0.02 X10^3/uL; Basophil% 0.3 % (0-1); Eosinophil# 0.15 X10^3/uL; Eosinophils% 2.3 % (0-5); Hemoglobin 14.7 g/dL (13.0-16.5); Lymphocyte % 32.6 % (19-41); Mean Corp Hgb Conc 32.7 g/dL (32-36); Mean Corpuscular Volume 91.8 fL (80-94); Mean Platelet Vol. 10.4 fl (6.2-12.0); Monocyte# 0.41 X10^3/uL; Monocyte% 6.4 % (0-10); NRBC Flagged by Analyzer 0 % (0-5); Neutrophil # 3.74 X10^3/uL (2.7-7.7); Neutrophil % 58.1 % (47-70); Platelet Count 200 K/mm3 (150-450); RBC Distribution Width CV 13.6 % (11.6-14.6); RBC Distribution Width SD 46.3 fl (35.1-43.9); White Blood Count 6.4 K/mm3 (4.4-11.0)
[2020-11-26 04:04] LABS: Anion Gap 7 (5-15); BUN 15 mg/dL (7-18); BUN/Creat Ratio 16.4 RATIO (10-20); Chloride 103 mmol/L (98-107); Creatinine, Serum 0.92 mg/dL (0.70-1.30); EST Glomerular Filtration Rate 92 mL/min (>60); Est Glom Filt Rate - Afr Amer 112 mL/min (>60); Estimated Creatinine Clearance 106.15 ml/min; Glucose 148 mg/dL (74-106); Potassium 4.3 mmol/L (3.5-5.1); Sodium Level 136 mmol/L (136-145)
[2020-11-26 04:09] VITALS: BP 107/77; PULSE 87; RESP 18; O2SAT 95
--- NOTE | 2020-11-26 04:14 | ED.RN ---
SALINE LOCK WAS ATTEMPTED BUT UNSUCCESSFUL. PT WAS DISCHARGED HOME WITHOUT FURTHER IV NEEDS.
== END 2020-11-26 04:16 | disposition home or self-care (01) ==
LOC: ED 03:31
PROVIDERS: Emergency Provider Emergency Medicine; PCP Registered Nurse
DX: M54.6 Pain in thoracic spine (principal); R20.2 Paresthesia of skin; R94.31 Abnormal electrocardiogram [ECG] [EKG]; E11.9 Type 2 diabetes mellitus without complications; Z72.0 Tobacco use; Z79.84 Long term (current) use of oral hypoglycemic drugs
CPT/HCPCS: 36415; 71045; 73030; 80048; 84484; 85025; 93005; 99284; A4216

== ENCOUNTER → 2020-12-01 07:33 | Outpatient (CLI) | payer BC, SELFPAY ==
[2020-11-26 02:41] VITALS: BMI 40.7
--- NOTE | 2020-12-01 07:48 | MRI_ITS ---
STUDY: MRI CERVICAL SPINE WITHOUT CONTRAST REASON FOR EXAM: Male, 50 years old. radiculopathy, rt shoulder pain, numbness forearm and fingers TECHNIQUE: Standardized fat and water weighted pulse sequences were obtained in the sagittal and axial planes. COMPARISON: CT to FINDINGS: Normal foramen magnum and brainstem-cervical cord junction. Normal craniovertebral junction. Normal anterior atlantoaxial articulation. Normal odontoid process. There is reversal of the normal cervical lordosis. Normal vertebral bodies and posterior osseous elements. C2-3: Normal endplates. Normal disc height, signal and morphology. Normal central canal and intervertebral neural foramina. C3-4: Mild bilobed disc osteophyte complex and a large right foraminal protrusion or uncovertebral hypertrophy produces moderate spinal stenosis with abutment the central spinal cord and severe right neural foraminal stenosis. C4-5: Mild bilobed disc osteophyte complex and moderate right foraminal protrusion or uncovertebral hypertrophy produces mild spinal stenosis and moderate right neural foraminal stenosis. C5-6: Moderate bilobed disc osteophyte complex and bilateral uncovertebral hypertrophy produces moderate spinal stenosis with abutment of the central spinal cord and moderate bilateral neural foraminal stenosis. C6-7: Moderate broad disc osteophyte complex and bilateral uncovertebral hypertrophy produces moderate spinal stenosis with abutment central spinal cord and moderate bilateral neural foraminal stenosis. C7-T1: Mild broad disc osteophyte complex produces mild spinal stenosis and mild bilateral neural foraminal stenosis. Normal cervical cord. Normal visualized soft tissue structures. MRI/Spine Cervical (Routine) IMPRESSION: Diffuse degenerative disc disease asymmetric to the right with reversal of the normal lordotic curvature. Electronically Signed: Angel Fitzgerald MD at 10:02 EST Tel , Service support ,
== END ==
LOC: MRI 07:36
PROVIDERS: PCP Registered Nurse; Visit Provider Registered Nurse
DX: M54.12 Radiculopathy, cervical region (principal)
CPT/HCPCS: 72141

== ENCOUNTER → 2020-12-04 10:45 | Outpatient (CLI) | payer BC, SELFPAY ==
[2020-11-26 02:41] VITALS: BMI 40.7
[2020-12-04 11:30] LABS: Hemoglobin A1c 8.6 % (3.8-5.6)
== END ==
PROVIDERS: PCP Registered Nurse; Referring Provider Specialist; Visit Provider Specialist
DX: E11.9 Type 2 diabetes mellitus without complications (principal)
CPT/HCPCS: 36415; 83036

== ENCOUNTER 2020-12-06 15:54 | Emergency (ER) | payer BC, SELFPAY ==
[2020-12-06 15:56] VITALS: BP 139/79; PULSE 81; RESP 18; TEMP 36.4; O2SAT 96; BMI 39.5
--- NOTE | 2020-12-06 16:22 | ED.VISSUMM ---
- ER Visit Summary Date of Service: 12/06/20 Chief Complaint: Upper extremity pain and tingling. History of Present Illness: The patient is a 50 M [id number] history of diabetes, degenerative disc disease of the C-spine prior right elbow surgery prior right wrist carpal tunnel surgery prior right rotator cuff surgery and ACL repair of his knee. He states he fell in August and injured his right shoulder and upper extremity was seen at time evaluated ice in the last 1 to 2 weeks has developed worsening pain. He has seen one of the orthopedic doctors at [facility]. He is going to follow-up with her sports medicine doctor on Tuesday. States that the pain getting worse. His primary care provider believe is a nurse practitioner running for Vicodin for severe pain and tramadol. Says not really helping. Physical Examination: Middle-aged male no acute distress vital signs stable afebrile. H EENT exam unremarkable. Neck nontender. Lungs clear to auscultation bilaterally. Heart regular rhythm no murmur. Abdomen soft nontender. Extremities moves all 4. Specifically his right hand he has 3 out of 5 line maintainer strength compared to 5 out of 5 in the left he is a strong radial pulse on the right. He has normal cap refill to the right hand. Normal touch sensation. Hands warm to touch he has also decreased strength with flexion extension of his right wrist flexion extension of his right elbow has decreased in elevation of his right arm. There is no atrophy. There is no swelling or bruising. There is no bony deformity. Neurologically is awake and alert. He has decreased strength with line maintainer to his right hand flexing extension of his right wrist, flexion extension of his right elbow and abduction of his shoulder. Test Results: None is already had imaging performed at the orthopedic office. Emergency Department Course and Treatment: IM Dilaudid for pain. Clinically the patient has a nerve injury to his right upper extremity. He is following up with orthopedics on Tuesday. He already has Vicodin and tramadol for pain. Treatment Plan: Follow-up with orthopedics. Motrin, Vicodin and tramadol for pain. Disposition: Discharge Impression: Right upper extremity pain and weakness to line maintainer and flexion extension of the wrist, elbow and shoulder secondary to nerve injury This note was generated with [employer] software. It may contain incorrect words, spelling, and punctuation that were not noted in review of the chart prior to signing ED Disposition - Plan for ED Patient: Referrals: Chantal Barron ASSISTANT WAREHOUSE MANAGER, ASSISTANT WAREHOUSE MANAGER-C [Primary Care Provider] -
--- NOTE | 2020-12-06 16:26 | ED.DEP ---
ED Disposition - Plan for ED Patient: Disposition: Home or Assisted Living Additional Instructions: Follow-up with your orthopedic appointment at [facility] with the sports medicine doctor on Tuesday. Motrin, Vicodin and tramadol for pain. Concern for neurologic injury (injury to the nerve) of the right upper extremity.
[2020-12-06] MEDS: HYDROmorphone 1 MG/ML Syringe SC (16:28)
== END 2020-12-06 17:00 | disposition home or self-care (01) ==
LOC: ED 16:28
PROVIDERS: Emergency Provider Emergency Medicine; PCP Registered Nurse
DX: M79.601 Pain in right arm (principal); R53.1 Weakness; E11.9 Type 2 diabetes mellitus without complications; Z72.0 Tobacco use; Z79.84 Long term (current) use of oral hypoglycemic drugs
CPT/HCPCS: 96372; 99282

== ENCOUNTER 2021-01-14 15:04 | Emergency (ER) | payer BC, SELFPAY ==
[2021-01-14] VITALS (7 sets, daily range): BP systolic 115–138; BP diastolic 60–92; PULSE 69–87; RESP 14–21; TEMP 36.7; O2SAT 93–96; BMI 41.4
--- NOTE | 2021-01-14 15:11 | CT_ITS ---
STUDY: CT HEAD STROKE PROTOCOL W/O CONTRAST INJECTION REASON FOR EXAM: Male, 50 years old. Neuro deficit, acute, stroke suspected RADIATION DOSAGE (If Supplied By Facility): CTDIvol = ( 44.99 ) mGy, DLP = ( a 12.98 ) mGycm TECHNIQUE: Transaxial CT imaging of the brain was performed without administration of intravenous contrast material. Individualized dose optimization techniques were used for this CT. COMPARISON: Comparison is made with prior study dated 12/10/2019. FINDINGS: Normal soft tissue structures. Normal calvarium. Normal size ventricles and extra-axial spaces for the patient''s age. Normal white matter tracts of the cerebral hemispheres. Normal basal ganglia and thalami. Normal brainstem. Normal cerebellum. There is no intracranial hemorrhage. There are no findings of an acute ischemic infarction. Normal visualized paranasal sinuses. CT/STROKE Brain/Head without Cont IMPRESSION: Normal unenhanced CT scan of the brain. N.B. : The above information has been verbally conveyed by Vikash Krishnan MD to Suzanne Barclay on 01/14/2021 15:33:36 (ET). Electronically Signed: Vikash Krishnan MD at 15:34 EDT , Service support ,
--- NOTE | 2021-01-14 15:11 | EKG12_ITS ---
Test Reason : STROKE TEAM Blood Pressure : / mmHG Vent. Rate : 074 BPM Atrial Rate : 074 BPM P-R Int : 168 ms QRS Dur : 098 ms QT Int : 362 ms P-R-T Axes : 042 -52 006 degrees QTc Int : 401 ms Normal sinus rhythm Left axis deviation Pulmonary disease pattern Abnormal ECG Confirmed by LESTER MONSIVAIS, ERICKA ([id number]), deputy editor in chief SHADE BRADLEY ([id number]) on 01/15/2021 12:48:37 PM Referred By: PEARL Confirmed By:ERICKA BATISTA MD
--- NOTE | 2021-01-14 15:11 | RAD_ITS ---
STUDY: X-RAY CHEST REASON FOR EXAM: Male, 50 years old. Neuro deficit, acute, stroke suspected TECHNIQUE: Frontal view COMPARISON: 11/26/2020 FINDINGS: The lungs are clear and expanded. There is no demonstrated pleural abnormality. Normal size heart. Normal mediastinum and issac. Normal visualized pulmonary arteries. Normal visualized aortic arch and descending thoracic aorta. Normal visualized thoracic spine. Normal visualized ribs, clavicles, and shoulders. There is no demonstrated abnormality of the visualized soft tissue structures of the upper abdomen. RAD/Chest 1 View IMPRESSION: Normal x-ray examination of the chest. Electronically Signed: Neel Wallace DO at 16:17 EDT Tel [phone], Service support ,
--- NOTE | 2021-01-14 15:12 | CT_ITS ---
STUDY: CTA HEAD AND NECK WITH CONTRAST REASON FOR EXAM: Male, 50 years old. Neuro deficit, acute, stroke suspected RADIATION DOSAGE (If Supplied By Facility): CTDIvol = ( 22.93 ) mGy, DLP = ( 793.22 ) mGycm TECHNIQUE: CT angiography was performed with a multi-detector CT scanner. Data acquisition was obtained from the skull base through the vertex following intravenous administration of IV 100mL Isovue-370. MIP images were reconstructed from the axial data set. Post-processing of the angiographic images was performed, with multiplanar reformation and 3D reconstruction. Individualized dose optimization techniques were used for this CT. COMPARISON: No relevant priors. FINDINGS: Normal bilateral petrous carotid arteries. Normal right cavernous carotid artery with a normal supraclinoid bifurcation. Normal left cavernous carotid artery with a normal supraclinoid bifurcation. Normal right A1 segments of the anterior cerebral artery. Normal left A1 segments of the anterior cerebral artery. Normal intact anterior communicating artery (ACOM). Normal bilateral A2 segments of the anterior cerebral arteries. Normal right M1 and M2 segments of the middle cerebral arteries, with a normal M1 bifurcation. Normal left M1 and M2 segments of the middle cerebral arteries, with a normal M1 bifurcation. Normal right posterior communicating artery (PCOM). Normal left posterior communicating artery (PCOM). Normal bilateral vertebral arteries. Normal basilar artery with a normal basilar bifurcation. The visualized bilateral superior cerebellar (SCA) arteries are normal. Normal bilateral P1, P2 and visualized P3 segments of the posterior cerebral arteries. There is no demonstrated aneurysm of the [place]. There is no demonstrated abnormality of the visualized brain. AORTIC ARCH: Normal visualized aortic arch. Normal origins of the brachiocephalic, left common carotid, and left subclavian arteries. RIGHT CAROTID ARTERIES: Normal right common carotid artery (CCA). Normal right common carotid bulb. Normal origin of the right internal carotid (ICA) artery without a hemodynamically significant stenosis. Normal visualized cervical portion of the right internal carotid artery. Normal origin of the right external carotid artery (ECA). LEFT CAROTID ARTERIES: Normal left common carotid artery (CCA). Normal left common carotid bulb. Normal origin of the left internal carotid (ICA) artery without a hemodynamically significant stenosis. Normal visualized cervical portion of the left internal carotid artery. Normal origin of the left external carotid artery (ECA). VERTEBRAL ARTERIES: Normal bilateral vertebral arteries. CT/STROKE CTA Head AND Neck W/Con IMPRESSION: Normal CTA Head and neck with contrast. N.B. : The above information has been verbally conveyed by Vikash Krishnan MD to Suzanne Ning on 01/14/2021 15:35:15 (ET). Electronically Signed: Vikash Krishnan MD at 15:36 EDT , Service support ,
--- NOTE | 2021-01-14 15:15 | CM.ED ---
SOCIAL WORK Reason for Consult: Stroke Alert Patient out of room for testing. Patient's fiancee in room with nursing. Introduced role and reason for referral. Emotional support and education provided. This worker to remain available for needs. Salome Estrada, MANAGER INTERN, SENIOR CONTRACTS MANAGER
--- NOTE | 2021-01-14 15:15 | ED.VIS.STROK ---
History of Present Illness Chief Complaint: Neuro S/Sx Informant: Patient Onset: Today Context: Sudden Onset Quality and Location: Right Arm Parasthesia, Right Leg Parasthesia, Right Arm Weakness, Right Leg Weakness Narrative: Patient is a 50-year-old male with history of diabetes, obesity and chronic neck pain presenting with sudden onset of worsening neck pain and an inability to move his right foot and right upper extremity. He also states he cannot feel his right arm or leg. Patient was at the surgical center with pain management and was about to have spinal injection with Dr. Brody. Patient was in the prone position. Local anesthetic had been infiltrated however the injection had not been done yet. This occurred at approximately 215 this afternoon. Patient was given 100 mcg of fentanyl because of the pain and transferred in a c-collar to the ER. Patient's spine doctor is Dr. Brown. Patient has never had symptoms severe before. Patient has been having problems with paresthesias of his right arm secondary to his C-spine problem. MRI reviewed from December 01 which showed diffuse generative disc disease asymmetric to the right with reversal of normal lordotic curve. Does go on to state that he has been having issues with urinary incontinence over the past 2 days. Past Medical History - Allergies and Home Meds Allergies/Adverse Reactions: Allergies coconut Allergy (Verified 12/06/20 15:59) Swelling Sulfa (Sulfonamide Antibiotics) Allergy (Verified 12/06/20 15:56) Swelling Primary Care Physician: Marcellus Brown DO [STAFF PHYSICIAN] - Past Medical History: - - Chronic pain, neck pain, right upper extremity radiculopathy,DM Surgical History: - - Left knee ACL repair, right shoulder rotator cuff repair Lives: Spouse/ Significant Other Smoking Status: Current every day smoker Review of Systems General: Denies: Chills, Fever, Sweats Eyes: Denies: Visual changes - bilaterally, Diplopia ENT: Denies: Rhinorrhea, Sore throat Cardiovascular: Denies: Chest pain, Palpitations Respiratory: Denies: Dyspnea, Cough, Dyspnea on exertion Gastrointestinal: Denies: Abdominal pain, Nausea, Vomiting, Diarrhea, Melena, Hematochezia Genitourinary: Reports: - - incontience . Denies: Dysuria, Hematuria, Frequency Musculoskeletal: Reports: Neck pain, Back pain, Extremity Pain Skin: Denies: Rash, Wounds Neurological: Reports: Weakness - Right extremites , Numbness - Right extremities . Denies: Headache STROKE Inital Vital Signs reviewed: Yes - NIHSS Initial 1a Level of Consciousness: 0 1b LOC Questions (Score 2 if aphasic/stupor): 0 1c LOC Commands (Only score 1st attempt): 0 2 Best Gaze (If aphasic, use reflexive mvmts.): 0 3 Visual: 0 4 Facial Palsy: 0 5 Motor Arm Right (UN = amputation/fusion): 3 5 Motor Arm Left: 0 6 Motor Leg Right: 3 6 Motor Leg Left: 0 7 Limb ataxia (Only + if out of proportion): 0 8 Sensory (Aphasia/stupor=0 or 1, coma=2): 2 9 Best Language: 0 10 Dysarthria (mute, coma=2, intubated=UN): 0 11 Extinction and Inattention (only scored if +): 0 Total Score: 8 General: Well nourished, Well developed, Obese Head: Normocephalic, Atraumatic Eyes: Perrl, EOMI ENT: Moist mucous membranes, No rhinorrhea Neck: Supple, - - diffuse tenderness Cardiovascular: Regular rate, Regular rhythm, No murmurs, - - 2+ radial and DP pulses Respiratory: No distress, CTA bilaterally, Chest nontender Abdomen: Soft, Nontender, Nondistended, Normal bowel sounds Extremities: Nontender, No edema, - - No deformity Skin: Normal color, No rash Neurological: Alert, Oriented x3, Cranial nerves II-XII grossly intact, Parasthesia - Patient has diffuse paresthesias of the right upper extremity, paresthesias of the right lower extremity below the knee on the lateral aspect, Weakness - Patient initially unable to move either bilateral lower extremities or his right upper extremity. Negative for: Left side facial droop, Right side facial droop Psychological: Normal affect Diagnostic/Tx/Re-eval Clinical Impression(s) from Imaging Studies Brain CT 01/14/21 15:11 IMPRESSION: Normal unenhanced CT scan of the brain. N.B. : The above information has been verbally conveyed by Vikash Krishnan MD to Suzanne Barclay on 01/14/2021 15:33:36 (ET). Electronically Signed: Vikash Krishnan MD at 15:34 EDT , Service support , ADDENDUM: 01/14/21 1541 IMPRESSION: Normal unenhanced CT scan of the brain. N.B. : The above information has been verbally conveyed by Vikash Krishnan MD to Suzanne Barclay on 01/14/2021 15:33:36 (ET). Electronically Signed: Vikash Krishnan MD at 15:34 EDT , Service support , Chest X-Ray 01/14/21 15:11 IMPRESSION: Normal x-ray examination of the chest. Electronically Signed: Neel Wallace DO at 16:17 EDT Tel [phone], Service support , Head/Neck CTA 01/14/21 15:12 IMPRESSION: Normal CTA Head and neck with contrast. N.B. : The above information has been verbally conveyed by Vikash Krishnan MD to Suzanne Barclay on 01/14/2021 15:35:15 (ET). Electronically Signed: Vikash Krishnan MD at 15:36 EDT , Service support , ADDENDUM: 01/14/21 1543 IMPRESSION: Normal CTA Head and neck with contrast. N.B. : The above information has been verbally conveyed by Vikash Krishnan MD to Suzanne Barclay on 01/14/2021 15:35:15 (ET). Electronically Signed: Vikash Krishnan MD at 15:36 EDT , Service support , Cervical Spine MRI 01/14/21 15:49 IMPRESSION: 1. Multilevel degenerative changes, as described above. 2. Diffuse disc bulges at C6-C7 and C7-T1 contributing to mild compression anterior aspect of the cord and mild central canal stenosis 3. Multilevel right foraminal stenosis with nerve root compression 4. Mild central canal stenosis without cord compression at C5-C6. Electronically Signed: Wolf Mooney MD at 20:24 EDT , Service support , Laboratory Data 01/14/21 01/14/21 01/14/21 15:26 15:30 15:30 WBC 7.0 RBC 5.26 Hgb 15.8 Hct 46.9 MCV 89.2 MCH 30.0 MCHC 33.7 RDW Std Deviation 43.5 RDW Coeff of Sunday 13.2 Plt Count 203 MPV 10.2 Immature Gran % (Auto) 0.300 Neut % (Auto) 60.9 Lymph % (Auto) 31.3 [place] % (Auto) 5.3 Eos % (Auto) 1.9 Baso % (Auto) 0.3 Absolute Neuts (auto) 4.3 Absolute Lymphs (auto) 2.20 Nucleated RBC % 0 PT 12.9 INR 1.0 APTT 30.1 Sodium Potassium Chloride Carbon Dioxide Anion Gap BUN Creatinine Estim Creat Clear Calc Est GFR (MDRD) Af Amer Est GFR (MDRD) Non-Af BUN/Creatinine Ratio Glucose Calcium Troponin I POC Glucose 130 H 01/14/21 01/14/21 15:30 17:50 WBC RBC Hgb Hct MCV MCH MCHC RDW Std Deviation RDW Coeff of Sunday Plt Count MPV Immature Gran % (Auto) Neut % (Auto) Lymph % (Auto) [place] % (Auto) Eos % (Auto) Baso % (Auto) Absolute Neuts (auto) Absolute Lymphs (auto) Nucleated RBC % PT INR APTT Sodium 136 Potassium 4.2 Chloride 105 Carbon Dioxide 25.0 Anion Gap 6 BUN 13 Creatinine 0.81 Estim Creat Clear Calc 117.09 Est GFR (MDRD) Af Amer 128 Est GFR (MDRD) Non-Af 106 BUN/Creatinine Ratio 16.0 Glucose 115 H Calcium 8.9 Troponin I < 0.015 POC Glucose 111 H - Rhythm Strip Rhythm Strip: Sinus Rhythm Rate: 74 Ectopy: None - EKG Initial EKG Interpretation: Sinus Rhythm, - - David rhythm at a rate of 74 Left axis deviation Normal intervals Normal ST segments No change compared to prior EKG on 11/26/2020 - Medical Decision Making Stroke Team Activated: Yes Patient is evaluated for sudden onset of severe neck pain and subsequent inability to move his right arm. He is also having right leg weakness. This occurred when he was placed in the prone position for epidural injection. Patient did not actually receive the injection so I have a low suspicion for hematoma as the cause. Because he is having weakness and paresthesias of the both upper and lower extremities, stroke alert is cause. CT and CTA do not show any acute process. Case discussed with neurology who feel that this likely is more of a peripheral process. Patient is evaluated by neurosurgery in the ER, Dr. Brown, who recommends MRI of the C-spine to make sure he does not have a worsening process that might require emergent surgery. MRI does not show any significant change. Patient is given multiple doses of pain medication in the ER so that he can tolerate laying down for CT and MRI. He does seem to have improvement of his strength while in the ER. At this time patient does not require emergent surgery and he is not in intractable pain. After discussion with spine and pain management, Dr. Brody, patient be discharged home with a short course of Percocet for pain control and he has a follow-up appointment on Tuesday with spine. Patient is counseled on signs and symptoms requiring return to the emergency room. Patient verbalizes agreement and understand this plan. Patient discharged home in stable and improved condition. ED Disposition - Plan for ED Patient: Disposition: Home or Assisted Living Diagnosis: Cervicalgia, Cervical disc disease Instructions: ED Degenerative Disk Disease Prescriptions: Oxycodone HCl/Acetaminophen [Percocet 7.5-325 mg Tablet] 1 tablet PO Q6H PRN PRN 3 Days #12 tablet PRN Reason: Pain Transmission Status: Received by [id number] Referrals: Marcellus Brown DO [STAFF PHYSICIAN] - Additional Instructions: You do not require emergent surgery at this time. Please follow-up with your spine doctor on Tuesday as scheduled. You have been prescribed pain medication in the meantime with approval of pain management and spine surgery.
--- NOTE | 2021-01-14 15:21 | NURSING ---
FACESHEET FAXED TO [facility]
[2021-01-14] MEDS: HYDROmorphone 1 MG/ML Syringe IV ×2 (15:40→18:05)
[2021-01-14 15:43] LABS: Absolute Neutrophil Count 4.3 X10^3/uL (2.0-7.7); Basophil# 0.02 X10^3/uL; Basophil% 0.3 % (0-1); Eosinophil# 0.13 X10^3/uL; Eosinophils% 1.9 % (0-5); Hematocrit 46.9 % (40-54); Hemoglobin 15.8 g/dL (13.0-16.5); Lymphocyte % 31.3 % (19-41); Mean Corp Hgb Conc 33.7 g/dL (32-36); Mean Corpuscular Volume 89.2 fL (80-94); Mean Platelet Vol. 10.2 fl (6.2-12.0); Monocyte# 0.37 X10^3/uL; Monocyte% 5.3 % (0-10); NRBC Flagged by Analyzer 0 % (0-5); Neutrophil # 4.28 X10^3/uL (2.7-7.7); Neutrophil % 60.9 % (47-70); Platelet Count 203 K/mm3 (150-450); RBC Distribution Width CV 13.2 % (11.6-14.6); RBC Distribution Width SD 43.5 fl (35.1-43.9); Red Blood Count 5.26 M/mm3 (4.6-6.2)
[2021-01-14 15:46] LABS: Bedside Glucose 130 mg/dL (70-110)
--- NOTE | 2021-01-14 15:49 | MRI_ITS ---
STUDY: MRI CERVICAL SPINE WITHOUT CONTRAST REASON FOR EXAM: Male, 50 years old. increased rt arm , neck pain during pain injection today TECHNIQUE: Standardized fat and water weighted pulse sequences were obtained in the sagittal and axial planes. COMPARISON: MRI of the cervical spine dated December 01, 2020 FINDINGS: Normal foramen magnum and brainstem-cervical cord junction. Normal craniovertebral junction. Normal anterior atlantoaxial articulation. Normal odontoid process. There is reversal of the normal cervical lordosis. Disc desiccation is present at all levels. C2-3: Normal endplates. Mild disc space narrowing without posterior disc bulging or herniation. Normal central canal and intervertebral neural foramina. C3-4: Normal endplates. Mild to moderate disc space narrowing with mild annular bulging. Normal central canal and intervertebral neural foramina. C4-5: Normal endplates. Mild to moderate disc space narrowing with minimal annular bulging. Normal central canal and intervertebral neural foramina. C5-6: Normal endplates. Moderate disc space narrowing with a diffuse disc bulge causing mild central canal stenosis without cord compression. Moderate right foraminal stenosis with nerve root compression is present secondary to uncovertebral hypertrophy. Normal left neural foramen. C6-7: Moderate disc space narrowing with a diffuse disc bulge causing mild central canal stenosis with mild compression anterior aspect of the cord. Moderate right foraminal stenosis without direct nerve root compression, secondary to uncovertebral hypertrophy. Normal left neural foramen. C7-T1: Moderate disc space narrowing with a diffuse disc bulge causing mild central canal stenosis with mild compression anterior aspect of the cord. Moderate right foraminal stenosis with nerve root compression is present secondary to uncovertebral hypertrophy. Normal left neural foramen. Normal cervical cord. There is no demonstrated cervical cord syrinx cavity. Normal visualized soft tissue structures. MRI/Spine Cervical (Routine) IMPRESSION: 1. Multilevel degenerative changes, as described above. 2. Diffuse disc bulges at C6-C7 and C7-T1 contributing to mild compression anterior aspect of the cord and mild central canal stenosis 3. Multilevel right foraminal stenosis with nerve root compression 4. Mild central canal stenosis without cord compression at C5-C6. Electronically Signed: Wolf Mooney MD at 20:24 EDT , Service support ,
[2021-01-14 16:07] LABS: Prothrombin Time (Protime)PT. 12.9 SECONDS (11.7-14.9)
[2021-01-14 16:08] LABS: Partial Thromboplast Time 30.1 Seconds (24.1-36.2)
--- NOTE | 2021-01-14 16:10 | ED.RN ---
per dr vidales no longer need to complete nih d/t recommendation from [facility] neurologist.
[2021-01-14 16:28] LABS: Anion Gap 6 (5-15); BUN 13 mg/dL (7-18); Calcium,Total 8.9 mg/dL (8.5-10.1); Chloride 105 mmol/L (98-107); Creatinine, Serum 0.81 mg/dL (0.70-1.30); EST Glomerular Filtration Rate 106 mL/min (>60); Est Glom Filt Rate - Afr Amer 128 mL/min (>60); Estimated Creatinine Clearance 117.09 ml/min; Glucose 115 mg/dL (74-106); Potassium 4.2 mmol/L (3.5-5.1); Sodium Level 136 mmol/L (136-145)
--- NOTE | 2021-01-14 16:36 | PN.ORTHO_ITS ---
Subjective: The patient is a 50-year-old man seen by me in clinic for cervical stenosis with right upper extremity radiculopathy. He was previously scheduled for an ACDF surgery, which was denied because he had not done physical therapy or had injections. He was sent for injections. He had his appointment for a cervical epidural injection today. When he was put on the table in the prone position for the injection he began to complain of right upper extremity numbness. The injection was canceled and he was transferred to the ER. He was seen and exam ined by myself. He is resting comfortably. He is complaining of right axial neck pain radiating to the right trapezius and scapular region as well as acute global decreased sensation and weakness in the right upper extremity. He is also complaining of paresthesias in the right medial thigh and right medial calf and sole of the right foot. He also states that he has had a few episodes of urinary incontinence over the past few days. He was scheduled to see me in clinic this Tuesday. Objective: Examination of the right upper extremity shows global mild decrease sensation in all dermatomes. There is 4 out of 5 strength in shoulder abduction as well as elbow flexion and extension. There is 4 - strength in finger flexion, wrist extension and flexion and finger abduction. Neurologic examination of the left upper extremity and left lower extremity showed normal sensation in all dermatomes and 5 out of 5 strength throughout Neurologic examination of the right lower extremity shows mild decrease sensation along the medial thigh and medial calf and sole of the foot. There is also 4 out of 5 strength in hip flexion, knee extension, ankle dorsiflexion and plantar flexion and extensor hallucis longus. - Physical Exam Vitals/I&O's: Vital Signs Temp Pulse Resp BP Pulse Ox 98.1 F 76 15 137/90 H 96 01/14/21 15:10 01/14/21 16:14 01/14/21 16:14 01/14/21 16:14 01/14/21 16:14 Oxygen Delivery Method Room Air Weight: 305 lb 8.971 oz Body Mass Index (BMI) 41.4 Finger Stick Blood Glucose 130 General: Alert, Oriented x3, Cooperative, No apparent distress HEENT: PERRLA, EOMI Neck: Supple, No JVD Lungs: Normal air movement Cardiovascular: Regular rate Abdomen: Soft, Non Tender Extremities: No edema, Capillary Refill Less than 3 Seconds, No Calf Tenderness Neurological: Cranial nerves II-XII grossly intact, Deep Tendon Reflexes 2+/4 and Symmetrical, - - Neurologic exam of the right upper extremity shows mild global decreased sensation in all dermatomes. There is also 4 out of 5 strength in shoulder abduction, elbow flexion and extension. There is 4 - strength in wrist extension and flexion as well as finger flexion and abduction. Psych/Mental Status: Normal Affect, Appropriate Laboratory Results 01/14/21 15:26: POC Glucose 130 H 01/14/21 15:30: WBC 7.0, RBC 5.26, Hgb 15.8, Hct 46.9, MCV 89.2, MCH 30.0, MCHC 33.7, RDW Std Deviation 43.5, RDW Coeff of Sunday 13.2, Plt Count 203, MPV 10.2, Immature Gran % (Auto) 0.300, Neut % (Auto) 60.9, Lymph % (Auto) 31.3, [place] % (Auto) 5.3, Eos % (Auto) 1.9, Baso % (Auto) 0.3, Absolute Neuts (auto) 4.3, Absolute Lymphs (auto) 2.20, Nucleated RBC % 0 01/14/21 15:30: PT 12.9, INR 1.0, APTT 30.1 01/14/21 15:30: Sodium 136, Potassium 4.2, Chloride 105, Carbon Dioxide 25.0, Anion Gap 6, BUN 13, Creatinine 0.81, Estim Creat Clear Calc 117.09, Est GFR (MDRD) Af Amer 128, Est GFR (MDRD) Non-Af 106, BUN/Creatinine Ratio 16.0, Glucose 115 H, Calcium 8.9, Troponin I < 0.015 Medical Necessity - Tobacco Use Smoking Status: Current every day smoker Assessment/Plan All Active Problems (Last Reviewed 12/19/19 @ 06:29 by Shawna Ng) Cervical spondylosis with radiculopathy (Acute) Lumbosacral spondylosis with radiculopathy (Acute) Lumbosacral spondylosis with radiculopathy (Acute) Strain of muscle, fascia and tendon at neck level, initial encounter (Acute) Strain of muscle, fascia and tendon of lower back, initial encounter (Acute) Unspecified injury of head, initial encounter (Acute) Encounter for examination required by Department of Transportation (DOT) (Acute) I had a lengthy discussion with the patient. He is currently scheduled for repeat cervical MRI to assess for any acute changes from prior studies. In the meantime he will be observed in the emergency department. If his symptoms can be controlled on medications, he can be discharged home to follow-up with me in clinic as scheduled on Tuesday. If not, he will be admitted for pain control and possible surgical treatment. He understands and agrees with the treatment plan.
--- NOTE | 2021-01-14 16:50 | CHAPLAIN ---
Type of Pastoral Visit ___ Initial Visit ___ Follow-up Visit ___ On-call Visit ___ General Patient Visit ___ Spiritual Assessment ___ Family Conference ___ Bereavement _x__ Rapid Response ___ Code Blue ___ Other (describe below) Pastoral Care Referral From ___ Patient ___ Family ___ Nurse ___ Physician ___ Training Program Developer ___ Quarter Inspector _x__ Other (describe below) Sacrament/Intervention ___ Active listening ___ Anointing ___ Christian ___ Bereavement ___ Communion ___ Farrah exploration ___ ___ Life review ___ Prayer ___ Reconciliation ___ Sacrament of Sick _x__ Supportive presence ___ Wedding ___ Other (describe below) Pastoral Comments came to this stroke alert; met spouse of patient to offer support; returned later to check on spouse; spouse denies need for anything at this time
[2021-01-14 17:56] LABS: Bedside Glucose 111 mg/dL (70-110)
[2021-01-14] MEDS: 0.9% Normal Saline 1,000 ML 150 ML IV (18:06)
[2021-01-14] MEDS: oxyCODONE 5 MG Tablet PO (21:05)
== END 2021-01-14 21:26 | disposition home or self-care (01) ==
PROVIDERS: Emergency Provider Emergency Medicine; PCP Registered Nurse
DX: M50.123 Cervical disc disorder at C6-C7 level with radiculopathy (principal); M48.02 Spinal stenosis, cervical region; E66.9 Obesity, unspecified; E11.9 Type 2 diabetes mellitus without complications; G89.29 Other chronic pain; F17.200 Nicotine dependence, unspecified, uncomplicated; Z79.84 Long term (current) use of oral hypoglycemic drugs; Z79.52 Long term (current) use of systemic steroids; Z79.891 Long term (current) use of opiate analgesic
CPT/HCPCS: 70450; 70496; 70498; 71045; 72141; 80048; 82962; 84484; 85025; 85610; 85730; 93005; 96361; 96374; 96376; 99285; J7030; Q9967; A4216

== ENCOUNTER → 2021-05-06 10:07 | Outpatient (CLI) | payer BC, SELFPAY ==
[2021-01-14 15:10] VITALS: BMI 41.4
--- NOTE | 2021-05-06 10:12 | EKG12_ITS ---
Test Reason : PREOP Blood Pressure : / mmHG Vent. Rate : 082 BPM Atrial Rate : 082 BPM P-R Int : 156 ms QRS Dur : 084 ms QT Int : 348 ms P-R-T Axes : 015 -48 040 degrees QTc Int : 406 ms Normal sinus rhythm Left axis deviation Low voltage QRS Abnormal ECG Confirmed by PATRICIA MELCHOR MD ([id number]), proposal editor MARVIN MOORE ([id number]) on 05/07/2021 10:24:10 AM Also confirmed by PATRICIA MELCHOR MD ([id number]), proposal editor MARVIN MOORE ([id number]) on 05/07/2021 10:36:08 AM Referred By: Marcellus Brown Confirmed By:PATRICIA MELCHOR MD
[2021-05-06 11:44] LABS: Hematocrit 45.2 % (40-54); Mean Corp Hgb Conc 33.2 g/dL (32-36); Mean Corpuscular Volume 87.4 fL (80-94); Mean Platelet Vol. 10.9 fl (6.2-12.0); Platelet Count 224 K/mm3 (150-450); RBC Distribution Width CV 14.6 % (11.6-14.6); RBC Distribution Width SD 47.1 fl (35.1-43.9); Red Blood Count 5.17 M/mm3 (4.6-6.2); White Blood Count 7.9 K/mm3 (4.4-11.0)
[2021-05-06 11:56] LABS: Partial Thromboplast Time 29.4 Seconds (24.1-36.2); Prothrombin Time (Protime)PT. 12.1 SECONDS (11.7-14.9)
[2021-05-06 12:03] LABS: Hemoglobin A1c 8.7 % (3.8-5.6)
[2021-05-06 12:22] LABS: Anion Gap 8 (5-15); BUN 10 mg/dL (7-18); Calcium,Total 9.3 mg/dL (8.5-10.1); Chloride 103 mmol/L (98-107); Creatinine, Serum 0.91 mg/dL (0.70-1.30); EST Glomerular Filtration Rate 93 mL/min (>60); Est Glom Filt Rate - Afr Amer 112 mL/min (>60); Glucose 145 mg/dL (74-106); Potassium 4.3 mmol/L (3.5-5.1); Sodium Level 134 mmol/L (136-145)
== END ==
PROVIDERS: PCP Registered Nurse; Referring Provider Orthopaedic Surgery; Visit Provider Orthopaedic Surgery
DX: Z01.818 Encounter for other preprocedural examination (principal); Z11.52 Encounter for screening for COVID-19
CPT/HCPCS: 36415; 80048; 83036; 85027; 85610; 85730; 87426; 93005; C9803

== ENCOUNTER 2021-06-09 09:27 | Day surgery (SDC) | payer BC, SELFPAY ==
[2021-05-14 16:27] VITALS: BMI 41.4
[2021-06-09] VITALS (10 sets, daily range): BP systolic 106–132; BP diastolic 71–93; PULSE 82–99; RESP 16; TEMP 36.1–36.2; O2SAT 89–98; BMI 38.2
[2021-06-09] MEDS: Lactated Ringers 1,000 ML 100 ML IV ×2 (09:55→14:46)
--- NOTE | 2021-06-09 11:33 | PCM.PN.ORT ---
Subjective Subjective The patient was seen and examined postoperatively in the PACU. His pain is well controlled. He is resting comfortably. He has no complaints. Objective Data Objective Data Vital Signs: Vital Signs Temp Pulse Resp BP Pulse Ox 97.2 F L 83 16 121/71 H 97 06/09/21 09:56 06/09/21 09:56 06/09/21 09:56 06/09/21 09:56 06/09/21 09:56 Oxygen Delivery Method Room Air Weight: 289 lb 14.526 oz Body Mass Index (BMI) 38.2 Lab / Micro Data Micro: Microbiology 06/09/21 09:40 Mucosa - Nose SARS-CoV-2 Antigen (Rapid) - Final Physical Exam Const alert, oriented x3 and no apparent distress General Appearance: cooperative and comfortable HEENT normocephalic and head/scalp atraumatic Eyes EOMs intact bilaterally and conjunctivae normal Neck full ROM and supple Resp normal respiratory effort and normal air movement Cardio regular rate and regular rhythm Peripheral Pulses: pulses 2+ throughout GI soft to palpation, non-tender and non-distended Back/Spine thoracic and lumbar spine normal to inspection Back/Spine Narrative: Dressing clean dry and intact Cervical Spine: cervical ROM normal Thoracic Spine / Upper Back: normal to inspection Lumbar Spine / Lower Back: normal to inspection Extremity normal to inspection, full ROM, normal capillary refill, no clubbing, cyanosis or edema and no calf tenderness Peripheral Pulses: Yes pulses 2+ throughout Skin no rashes or lesions noted General Skin Exam: no breakdown Neuro oriented x3, CN's II-XII intact bilaterally, moves all extremities, no focal motor deficits, no sensory deficits noted and deep tendon reflexes 2+ bilaterally Sensorium / Orientation: awake and alert Motor Exam: strength 5/5 throughout Assessment & Plan Assessment/Plan (1) Delayed surgical wound healing: PLAN: Okay to discharge home when stable Continue home Keflex pending wound cultures Follow-up with Dr. Brown in 1 week Daily dressing changes with iodine to incision No repetitive bending twisting or lifting anything greater than 5 pounds
[2021-06-09 11:51] LABS: Bedside Glucose 216 mg/dL (70-110)
[2021-06-09] MEDS: Cefazolin 2 GM in 0.9% Normal Saline 100 ML IV (12:00)
[2021-06-09] MEDS: Bupivacaine Mpf 0.5% 30 ML VIAL (13:18)
--- NOTE | 2021-06-09 13:25 | PCM.OPRPT ---
Problems Associated Problem List Diagnoses (1) Delayed surgical wound healing: Report of Operation Date of Procedure: 06/09/21 Pre-Operative Diagnosis: Delayed wound healing, lumbar, status post laminotomy discectomy Post-Operative Diagnosis: Delayed wound healing, lumbar, status post laminotomy discectomy Surgery/Procedure Performed:: 1. Lumbar irrigation and debridement 2. Wound exploration 3. Primary closure Description of Surgical Findings:: The patient is a 50-year-old male who underwent right L5-S1 laminotomy discectomy on 05/12/2021. He subsequently had delayed wound healing of his incision. After being seen in the clinic and discussing the risk benefits and alternatives it was recommended that he undergo a lumbar irrigation and debridement, wound exploration and primary closure. The patient opted for operative intervention understanding the risks to include, but not limited to, infection, bleeding, damage to nerves arteries and veins, possibility of spinal fluid leak, continued pain, need for further surgery, deep vein thrombosis, pulmonary embolism, risk of stroke, heart attack, or . The patient was identified in the preoperative holding area. There he received preoperative IV antibiotics, Ancef, and was then transferred to the operative suite. Once in the operative suite, after general endotracheal anesthesia was established, the patient was transferred to the [place] operating table in the prone position. The lumbar region was prepped and draped in a sterile manner. A 10 blade scalpel was used to open his previous incision, which had superficial necrotic tissue along the midline. A small amounts of brown serous fluid was encountered superficial to the fascia. This was cultured. The wound was thoroughly irrigated. All necrotic tissue was debrided. The wound margins were debrided with a 15 blade scalpel. At this point the fascia was inspected and closure was found to be intact. The previous fascial incision was reopened and explored. No fluid was encountered. Deep cultures were then taken. The wound was again thoroughly irrigated with 3000 cc of normal saline solution through a pulse training development manager. All bleeding was controlled. 1 g of vancomycin powder was added to the wound. The incision was closed with #1 Vicryl for the fascia, 2-0 Vicryl for the subcutaneous and 2-0 nylon for the skin. The patient tolerated the procedure well. Sterile dressing was applied with 4 x 4's, ABD and tape. Sponge instrument and needle counts were correct at the end of the case. The patient was extubated and taken to the PACU without incident. Surgeon: Marcellus Brown Type of Anesthesia: General Specimen's removed: Superficial and deep wound cultures Drains: None Estimated Blood Loss (mL): 50 cc Fluids Replaced: 900 cc Complications None Admit VTE Documentation VTE Present on Admission: No VTE Mechan Device Prophylaxis: SCD's and Knee High TAWANA Rodriguez
[2021-06-09 14:05] LABS: Bedside Glucose 176 mg/dL (70-110)
== END 2021-06-09 16:31 | disposition home or self-care (01) ==
LOC: SDC 09:29 → AC 09:30
PROVIDERS: PCP Registered Nurse; Referring Provider Orthopaedic Surgery; Visit Provider Orthopaedic Surgery
PROC: (CPT 63030; principal; 2021-06-09 11:00)
DX: T81.31XA Disruption of external operation (surgical) wound, not elsewhere classified, initial encounter (principal); M51.16 Intervertebral disc disorders with radiculopathy, lumbar region; M47.26 Other spondylosis with radiculopathy, lumbar region; M48.061 Spinal stenosis, lumbar region without neurogenic claudication; E11.9 Type 2 diabetes mellitus without complications; G47.30 Sleep apnea, unspecified; M19.90 Unspecified osteoarthritis, unspecified site; F17.200 Nicotine dependence, unspecified, uncomplicated; I10 Essential (primary) hypertension; E66.01 Morbid (severe) obesity due to excess calories; Z68.41 Body mass index [BMI] 40.0-44.9, adult; Z79.84 Long term (current) use of oral hypoglycemic drugs; Z79.899 Other long term (current) drug therapy
CPT/HCPCS: 12034; 13101; 82962; 87070; 87075; 87077; 87186; 87205; 87426; J7120; J2405

== ENCOUNTER 2021-06-16 18:25 | Observation (INO) | payer BC, SELFPAY ==
[2021-06-09 09:56] VITALS: BMI 38.2
[2021-06-16] VITALS (11 sets, daily range): BP systolic 95–132; BP diastolic 58–79; PULSE 70–88; RESP 16–18; TEMP 35.8–36.7; O2SAT 92–96; BMI 37.9
[2021-06-16] MEDS: Lactated Ringers 1,000 ML 100 ML IV ×3 (13:43→22:50)
[2021-06-16 13:56] LABS: Bedside Glucose 136 mg/dL (70-110)
--- NOTE | 2021-06-16 14:55 | OP.PCM_ITS ---
Problems Associated Problem List Diagnoses (1) Delayed surgical wound healing: Report of Operation Date of Procedure: 06/16/21 Pre-Operative Diagnosis: Delayed wound healing, lumbar Status post lumbar laminotomy discectomy Post-Operative Diagnosis: Delayed wound healing, lumbar Status post lumbar laminotomy discectomy Surgery/Procedure Performed:: Lumbar irrigation and debridement Wound exploration Application of wound VAC Description of Surgical Findings:: The patient is a 50-year-old male who underwent a right L5-S1 laminotomy discectomy on 05/12/2021. He was seen for follow-up in clinic a couple weeks later with drainage from his incision. He was taken for irrigation debridement, wound exploration, primary closure on 06/09/2021. He was placed on antibiotics. He followed up in clinic in 1 week and was found to have persistent drainage from his incision. After discussing the risk benefits and alternatives and answering all of his questions I recommended a repeat lumbar irrigation debridement, wound exploration, and application of wound VAC. The patient agreed to proceed. Before being wheeled in the operative suite the patient's identity and surgical site were confirmed by the patient, staff, anesthesia and the surgeon. He was given preoperative antibiotics, Ancef and vancomycin. He was wheeled in the operative suite and given the appropriate amount of sedation by anesthesia. After general endotracheal anesthesia was established, the patient was transferred prone to the operating table. All bony prominences were well- padded. The lumbar region was prepped and draped in a sterile fashion. His prior lumbar incision, a 4 inch longitudinal midline incision, was reopened with a 10 blade scalpel. A small amount of brown watery liquid was encountered. This was cultured. The wound was thoroughly irrigated and all necrotic tissue was debrided. The fascia was inspected and the fascial closure was found to be slightly disrupted. The fascia was reopened. No fluid, drainage, or necrotic tissue was encountered. The subfascial area was thoroughly irrigated with pulse lavage, 3000 L. The fascia was then closed with #1 Vicryl. At this point a wound VAC was applied to the lumbar wound. The patient tolerated the procedure well. He was transferred to the PACU in stable condition. The patient will be admitted. Infectious disease and wound care have been consulted for evaluation and management of antibiotics and the wound VAC respectively. Surgeon: Marcellus Brown Type of Anesthesia: General Specimen's removed: Superficial and deep cultures Drains: None Estimated Blood Loss (mL): 10 cc Fluids Replaced: 700 cc Complications None Admit VTE Documentation VTE Present on Admission: No VTE Mechan Device Prophylaxis: SCD's and Knee High TAWANA Hose
--- NOTE | 2021-06-16 14:56 | PCM.PN.ORT ---
Subjective Subjective The patient was seen and examined postoperatively in the PACU. He is lying in bed resting comfortably. His pain is controlled. He has no complaints Objective Data Objective Data Vital Signs: Vital Signs Temp Pulse Resp BP Pulse Ox 98.1 F 81 16 102/67 96 06/16/21 13:35 06/16/21 13:35 06/16/21 13:35 06/16/21 13:35 06/16/21 13:35 Oxygen Delivery Method Room Air Weight: 287 lb 4.197 oz Body Mass Index (BMI) 37.9 Lab / Micro Data Labs: Laboratory Results - last 24 hr 06/16/21 13:30: POC Glucose 136 H Physical Exam Const alert, oriented x3 and no apparent distress General Appearance: cooperative and comfortable HEENT head/scalp atraumatic Eyes EOMs intact bilaterally Neck full ROM General: normal visual inspection Resp normal respiratory effort and normal air movement Cardio regular rate and regular rhythm Peripheral Pulses: pulses 2+ throughout GI soft to palpation, non-tender and non-distended Back/Spine Back/Spine Narrative: Wound VAC in place and functioning Cervical Spine: cervical ROM normal Thoracic Spine / Upper Back: normal to inspection Lumbar Spine / Lower Back: normal to inspection Extremity normal to inspection, full ROM, normal capillary refill, no clubbing, cyanosis or edema, no calf tenderness and no pedal edema Peripheral Pulses: Yes pulses 2+ throughout Skin General Skin Exam: no breakdown Neuro oriented x3, CN's II-XII intact bilaterally, moves all extremities, no focal motor deficits, no sensory deficits noted and deep tendon reflexes 2+ bilaterally Motor Exam: strength 5/5 throughout and muscle tone normal throughout Assessment & Plan Assessment/Plan (1) Delayed surgical wound healing: PLAN: Admit to floor Pain control and mobilization as tolerated Consultation to wound care for management of wound VAC Consultation to infectious disease for management of antibiotics Discharge planning
--- NOTE | 2021-06-16 14:56 | PCM.DC.SUM ---
Providers Date of Admission: 06/16/21 Primary Care Physician: MONE Solis Diagnosis Discharge Diagnosis (1) Delayed surgical wound healing: Status: Acute Code(s): T81.89XA - Other complications of procedures, not elsewhere classified, initial encounter Medications at Discharge Home Medications metformin 1,000 mg PO BID 11/01/19 Trulicity 1.5 mg SQ QWEEK 11/26/20 cyclobenzaprine 10 mg PO BID PRN 01/14/21 atorvastatin 40 mg PO DAILY 06/08/21 escitalopram oxalate [Lexapro] 20 mg PO DAILY 06/08/21 gabapentin 400 mg PO TID 06/08/21 oxycodone-acetaminophen 1 - 2 tab PO Q6H PRN PRN 06/08/21 doxycycline monohydrate 100 mg PO BID #20 cap 06/17/21 Hospital Course Operations - (Lumbar irrigation and debridement, wound exploration, application of wound VAC) Summary of Care Provided Hospital Course: The patient is a 50-year-old male who underwent lumbar irrigation and debridement, wound exploration, application of wound VAC on 06/16/2021. He was subsequently admitted. The hospitalist was consulted for medical management. Infectious disease was consulted for management of antibiotics. Wound care was consulted for management of wound VAC. The patient was doing well, his pain was controlled and he was mobilizing well. He was subsequently discharged home on 06/17/21 to follow-up with Dr. Brown in 3 weeks. He also had scheduled follow-up for wound care in 1 week for VAC management. Physical Exam Const alert, oriented x3 and no apparent distress General Appearance: cooperative and comfortable HEENT head/scalp atraumatic Eyes EOMs intact bilaterally Neck full ROM General: normal visual inspection Resp normal respiratory effort and clear to auscultation bilaterally Cardio regular rate and regular rhythm Peripheral Pulses: pulses 2+ throughout GI soft to palpation, non-tender and non-distended Back/Spine Back/Spine Narrative: Wound VAC in place and functioning Cervical Spine: cervical ROM normal Thoracic Spine / Upper Back: normal to inspection and thoracic ROM normal Lumbar Spine / Lower Back: normal to inspection Extremity normal to inspection, full ROM, normal capillary refill, no clubbing, cyanosis or edema and no calf tenderness Peripheral Pulses: Yes pulses 2+ throughout Skin General Skin Exam: no breakdown Neuro oriented x3, CN's II-XII intact bilaterally, moves all extremities, no focal motor deficits, no sensory deficits noted and deep tendon reflexes 2+ bilaterally Weight / BMI Weight Weight: 287 lb 4.197 oz Body Mass Index (BMI) 37.9 ABG / Lab / Microbiology Data Result Diagrams: 06/17/21 05:22 06/17/21 05:22 Laboratory: Laboratory Results - last 24 hr 06/16/21 13:30: POC Glucose 136 H D/C Instructions Discharge Diet: No restrictions Discharge Activity: Return to Normal Activity May resume sexual activity in: No Restrictions Weight Bearing Status: Weight bearing as tolerated Lifting Restricted to (Lbs): 5 Call your doctor if your incision/area has: Continuous Slow Oozing, Sudden Increased Bleeding, Increased Pain/ Swelling, Increased Redness, Foul Smelling Discharge and Swelling at the incision site Call your doctor if you observe: Fever of 101 or Higher, Coldness, Increased Pain, Numbness or Tingling, Change in Color, Inability to urinate, Inability to have a bowel movement, Using more than 1 pad per hour, Shortness of breath, Dizziness, Fainting spells, Swelling in the ankles, Chest pain, Prolonged hiccupping, Increased palpitations (irregular heartbeat), Calf discomfort and Uncontrolled pain Additional Dressing/Incision Instructions: Wound care will manage her wound VAC. Keep wound VAC clean dry intact and operating Please Follow Up With: Marcellus Brown DO When: 3 weeks Meaningful Use Info Meaningful Use Diagnoses (Choose all that apply): None applicable Discharge Plan Admission Admit Date/Time: 06/16/21 18:25 Primary Reason for Your Visit: Lumbar irrigation and debridement, application of wound VAC Attending Provider: Marcellus Brown Primary Care Provider: Chantal Barron NP Consulting Providers: Esther Wilson ; Yanick Cain Instructions Additional Instructions / Restrictions: 1. During your procedure, you received sedation through your IV. Please follow these instructions for the next 24 hours: Do not drive a motor vehicle, do not drink any alcoholic beverages, and do not sign any legal documents or make personal or business decisions. A responsible adult should stay with you at least 6 hours after the procedure. 2. Keep your surgical site/incision clean and the dressing dry and intact. You may sponge bathe, but no showering or sitting in a bathtub. You may use an ice pack at the surgical site to reduce any swelling or discomfort. 3. Monitor the incision site for any signs or symptoms of infection. Watch for redness, excessive swelling or drainage, or continued pain at the incision site after 3 days. Contact your physician immediately for a fever, chills or a temperature of 101.5? F or greater. 4. Take your medication exactly as prescribed by your physician. Do not attempt to wean yourself off any of your medications even though your pain is improving. This process needs to be carefully monitored by your doctor. Take any antibiotics prescribed exactly as directed and until they are gone. 5. Avoid stretching, bending, pulling, twisting or any sudden movements. Do not bend or twist at the waist. 6. No lifting greater than 5 pounds. 7. Do not operate a motor vehicle, equipment or a power tool. 8. Do not have any manipulation done by a chiropractor or any other physician without first consulting with the physician who performed your surgery 9. Please contact our office if you are even scheduled for a CT scan or an MRI. 10. Please call us if you have any questions, problems or concerns. Discharge Orders/Prescriptions Prescriptions: New doxycycline monohydrate 100 mg capsule 100 mg PO BID Qty: 20 RF: 0 No Action metformin 500 MG tablet extended release 24 hr 1,000 mg PO BID RF: 0 Trulicity 1.5 MG/0.5 ML pen injector 1.5 mg SQ QWEEK RF: 0 cyclobenzaprine 10 MG tablet 10 mg PO BID PRN (Reason: MUSCLE SPASMS) RF: 0 atorvastatin 40 mg tablet 40 mg PO DAILY RF: 0 gabapentin 400 mg capsule 400 mg PO TID RF: 0 oxycodone-acetaminophen 5-325 mg tablet 1 - 2 tab PO Q6H PRN PRN (Reason: Pain) RF: 0 escitalopram oxalate [Lexapro] 20 mg tablet 20 mg PO DAILY RF: 0 Referrals / Follow Up: Chantal Barron NP, TRAVEL MONEY ADVISOR-C [Primary Care Provider] - Disposition Disposition (needs filled in before D/C Order can be placed): Home, Self Care
[2021-06-16 17:45] LABS: Bedside Glucose 139 mg/dL (70-110)
--- NOTE | 2021-06-16 18:49 | PCM.PN.BLA ---
Documented by User: Susu Bradshaw NP-C 06/16/21 19:03 Progress Note Patient is a 50-year-old male who underwent a lumbar irrigation and debridement. Patient underwent a L5-S1 laminotomy discectomy on 05/12/2021 and was noted at follow-up appointment to have delayed wound healing. Patient then underwent irrigation debridement and wound exploration with primary closure on 06/09/2021 and was placed on antibiotics at that time however patient continued to have drainage at which time it was decided to repeat lumbar irrigation and debridement. Patient currently in bed no distress noted. States his pain is 6 out of 10 which is tolerable for him, denies need for pain medication at this time. Patient requesting to go outside and smoke a cigarette, educated to no smoking policy and offered nicotine patch and nicotine gum to which patient was amenable. Physical Exam Const alert, oriented x3 and no apparent distress General Appearance: cooperative and comfortable HEENT normocephalic and head/scalp atraumatic Eyes conjunctivae normal and no scleral icterus Neck full ROM and supple General: trachea midline Chest inspection of chest normal and palpation of chest normal Resp normal respiratory effort, normal air movement and clear to auscultation bilaterally Cardio regular rate, regular rhythm, S1 normal heart sound and S2 normal heart sound Peripheral Pulses: pulses 2+ throughout GI normal to inspection, nondistended, normoactive bowel sounds, soft to palpation and non-tender Back/Spine Back/Spine Narrative: Surgical site to lower back without warmth or redness, dressing and drain intact, sanguinous drainage noted in wound VAC Extremity normal to inspection, full ROM, normal capillary refill and no clubbing, cyanosis or edema Skin no rashes or lesions noted and skin turgor normal Skin Narrative: Surgical wound to mid lower back Neuro oriented x3, moves all extremities, no focal motor deficits and no sensory deficits noted Psych mental status grossly normal, thought process normal, cooperative and affect normal Assessment & Plan Assessment/Plan (1) Delayed surgical wound healing: PLAN: 1. Lumbar irrigation and debridement secondary to delayed wound healing of a lumbar laminotomy discectomy -Surgery completed on 06/16/2021 -Per surgeon infectious disease consulted due to patient's need for multiple debridements -Referral provided to wound center for continued care wound VAC -Vancomycin and cefazolin ordered, will defer to ID for continued antibiotic therapy -Wound cultures pending 2. Lumbosacral spondylosis with radiculopathy -Continue current medication regimen per surgery that includes cyclobenzaprine, gabapentin, Percocet. 3. Diabetes mellitus type 2 -Continue Metformin -Patient takes Trulicity on , not currently ordered. If patient remains hospitalized on patient will need to bring this from home. -AC at bedtime blood sugars with sliding scale insulin ordered 4. Hyperlipidemia -continue atorvastatin DVT prophylaxis-SCDs and thigh-high TAWANA hose This patient was seen by MONE Hanks under the supervision of Dr. Wilson. Documented by User: Dr. Esther Wilson MD 06/17/21 11:09 Addendum Addendum: Patient seen by Susu SHORE under my supervision Late entry note for 06/16/2021 Patient is a 50 y/o male who was admitted by the spine surgery for lumbar irrigation and debridement after he had an L5-S1 laminectomy and discectomy with delayed wound healing noted at follow up visit. He had lumbar irrigation and debridement. Hospitalist service was consulted for medical management. Patient seen and examined. He complained of pain, which he says was well controlled. Review of systems was otherwise negative. O/E: Const alert, oriented x3 and no apparent distress General Appearance: cooperative and comfortable HEENT normocephalic and head/scalp atraumatic Eyes conjunctivae normal and no scleral icterus Neck full ROM and supple General: trachea midline Chest inspection of chest normal and palpation of chest normal Resp normal respiratory effort, normal air movement and clear to auscultation bilaterally Cardio regular rate, regular rhythm, S1 normal heart sound and S2 normal heart sound Peripheral Pulses: pulses 2+ throughout GI normal to inspection, nondistended, normoactive bowel sounds, soft to palpation and non-tender Back/Spine Back/Spine Narrative: wound vac in place Extremity normal to inspection, full ROM, normal capillary refill and no clubbing, cyanosis or edema Skin no rashes or lesions noted and skin turgor normal Skin Narrative: Surgical wound to mid lower back Neuro oriented x3, moves all extremities, no focal motor deficits and no sensory deficits noted Psych mental status grossly normal, thought process normal, cooperative and affect normal Patient being managed for lumbar irrigation and debridement due to delayed wound healing for lumbar laminotomy and discectomy. ID consulted. on IV vancomycin and cefazolin. Wound vac in place and management as per wound care. On percocet and gabapentin for pain. On metformin for diabetes mellitus, and on Trulicity weekly (on ). On atorvastatin for hyperlipidemia. On SCDs. Rest as per Susu Bradshaw ENGINEERING DESIGN MANAGER-C under my supervision. Thank you for the courtesy of the consult; please contact the hospitalist service with any questions or concerns Visit Charges Inpatient E&M: 04543 Subs Hosp L2
[2021-06-16] MEDS: oxyCODONE 5 MG Tablet PO (20:04)
--- NOTE | 2021-06-16 20:24 | NURSING ---
Emergency documentation in effect
[2021-06-16] MEDS: Insulin Lispro 100 UNIT/ML INSULN.PEN SC (22:49)
[2021-06-16] MEDS: Cefazolin 1 GM/50 ML BAG IV (22:51)
[2021-06-16 22:55] LABS: Bedside Glucose 371 mg/dL (70-110)
[2021-06-16] MEDS: cycloBENZAPRine HCl 10 MG Tablet PO (22:55)
[2021-06-16] MEDS: Gabapentin 400 MG Capsule PO (22:55)
[2021-06-17 02:55] VITALS: BP 130/73; PULSE 73; RESP 16; TEMP 36.4; O2SAT 96
[2021-06-17 05:53] LABS: Absolute Lymphocyte Count 1.63 X10^3/uL (0.83-4.51); Absolute Neutrophil Count 8.3 X10^3/uL (2.0-7.7); Basophil# 0.02 X10^3/uL; Basophil% 0.2 % (0-1); Eosinophil# 0.04 X10^3/uL; Eosinophils% 0.4 % (0-5); Hematocrit 39.2 % (40-54); Hemoglobin 12.8 g/dL (13.0-16.5); Lymphocyte # 1.63 X10^3/ul (0.83-4.51); Lymphocyte % 15.5 % (19-41); Mean Corp Hgb Conc 32.7 g/dL (32-36); Mean Corpuscular Hgb 29.4 pg (27.0-32.0); Mean Corpuscular Volume 89.9 fL (80-94); Monocyte# 0.48 X10^3/uL; Monocyte% 4.6 % (0-10); NRBC Flagged by Analyzer 0 % (0-5); Neutrophil # 8.29 X10^3/uL (2.7-7.7); Neutrophil % 78.9 % (47-70); Platelet Count 265 K/mm3 (150-450); RBC Distribution Width CV 14.5 % (11.6-14.6); RBC Distribution Width SD 47.7 fl (35.1-43.9); Red Blood Count 4.36 M/mm3 (4.6-6.2); White Blood Count 10.5 K/mm3 (4.4-11.0)
[2021-06-17 06:17] LABS: Anion Gap 6 (5-15); BUN 14 mg/dL (7-18); BUN/Creat Ratio 16.7 RATIO (10-20); Calcium,Total 8.3 mg/dL (8.5-10.1); Chloride 106 mmol/L (98-107); Creatinine, Serum 0.84 mg/dL (0.70-1.30); EST Glomerular Filtration Rate 102 mL/min (>60); Est Glom Filt Rate - Afr Amer 123 mL/min (>60); Estimated Creatinine Clearance 116.26 ml/min; Glucose 276 mg/dL (74-106); Potassium 4.3 mmol/L (3.5-5.1); Sodium Level 136 mmol/L (136-145)
[2021-06-17] MEDS: oxyCODONE 5 MG Tablet PO (06:27)
[2021-06-17 06:29] VITALS: BP 129/86; PULSE 72; RESP 17; TEMP 36.6; O2SAT 96
[2021-06-17] MEDS: Gabapentin 400 MG Capsule PO ×2 (06:41→15:52)
[2021-06-17] MEDS: Insulin Lispro 100 UNIT/ML INSULN.PEN SC (06:46)
[2021-06-17] MEDS: Cefazolin 1 GM/50 ML BAG IV ×2 (06:47→15:52)
[2021-06-17 06:56] LABS: Bedside Glucose 235 mg/dL (70-110)
--- NOTE | 2021-06-17 07:57 | PCM.PN.ORT ---
Subjective Subjective The patient was seen and examined postoperative day 1 status post lumbar irrigation and debridement, wound exploration, application of wound VAC. He is doing very well. He is mobilizing independently. His pain is minimal. He denies any numbness, tingling, weakness, changes in bowel or bladder function, fever, chills, nausea, or vomiting. Objective Data Objective Data Vital Signs: Vital Signs Temp Pulse Resp BP Pulse Ox 97.8 F 72 17 129/86 H 96 06/17/21 06:29 06/17/21 06:29 06/17/21 06:29 06/17/21 06:29 06/17/21 06:29 Oxygen Flow Rate (L/min) 2 Oxygen Delivery Method Room Air Weight: 287 lb 4.197 oz Body Mass Index (BMI) 37.9 Intake & Output: Intake and Output for Last 24 Hours 06/15/21 06/16/21 06/17/21 23:59 23:59 23:59 Intake Total 2673.34 / 2673.34 1516.67 / 1516.67 Output Total 920 / 920 Balance 1753.34 / 1753.34 1516.67 / 1516.67 Lab / Micro Data Result Diagrams: 06/17/21 05:22 06/17/21 05:22 Labs: Laboratory Results - last 24 hr 06/16/21 13:30: POC Glucose 136 H 06/16/21 17:38: POC Glucose 139 H 06/16/21 22:47: POC Glucose 371 H 06/17/21 05:22: WBC 10.5, RBC 4.36 L, Hgb 12.8 L, Hct 39.2 L, MCV 89.9, MCH 29.4, MCHC 32.7, RDW Std Deviation 47.7 H, RDW Coeff of Sunday 14.5, Plt Count 265, MPV 10.0, Immature Gran % (Auto) 0.400, Neut % (Auto) 78.9 H, Lymph % (Auto) 15.5 L, [place] % (Auto) 4.6, Eos % (Auto) 0.4, Baso % (Auto) 0.2, Absolute Neuts (auto) 8.3 H, Absolute Lymphs (auto) 1.63, Nucleated RBC % 0 06/17/21 05:22: Sodium 136, Potassium 4.3, Chloride 106, Carbon Dioxide 24.0, Anion Gap 6, BUN 14, Creatinine 0.84, Estim Creat Clear Calc 116.26, Est GFR (MDRD) Af Amer 123, Est GFR (MDRD) Non-Af 102, BUN/Creatinine Ratio 16.7, Glucose 276 H, Calcium 8.3 L 06/17/21 06:45: POC Glucose 235 H Physical Exam Const alert, oriented x3 and no apparent distress General Appearance: cooperative and comfortable HEENT head/scalp atraumatic Eyes EOMs intact bilaterally Neck full ROM General: normal visual inspection Resp normal respiratory effort and normal air movement Cardio regular rate and regular rhythm Peripheral Pulses: pulses 2+ throughout GI soft to palpation, non-tender and non-distended Back/Spine Back/Spine Narrative: Lumbar wound VAC in place and functioning properly Cervical Spine: cervical ROM normal Thoracic Spine / Upper Back: normal to inspection Lumbar Spine / Lower Back: normal to inspection Extremity normal to inspection, full ROM, normal capillary refill, no clubbing, cyanosis or edema, no calf tenderness and no pedal edema Peripheral Pulses: Yes pulses 2+ throughout Skin General Skin Exam: no breakdown Neuro oriented x3, CN's II-XII intact bilaterally, moves all extremities, no focal motor deficits, no sensory deficits noted and deep tendon reflexes 2+ bilaterally Assessment & Plan Assessment/Plan (1) Delayed surgical wound healing: PLAN: Continue IV Ancef and vancomycin until seen by infectious disease Awaiting infectious disease consult, then antibiotics per infectious disease Continue pain control and mobilization Awaiting wound care consultation. Keep wound VAC in place and on until wound care has seen him and given recommendations. Plan for discharge, likely home care for wound VAC Plan for follow-up in wound clinic upon discharge Plan for follow-up with infectious disease upon discharge Follow-up with Dr. Brown 3 weeks after discharge
[2021-06-17] MEDS: metFORMIN (XR) 500 MG Tablet 1000 MG PO (08:00)
[2021-06-17] MEDS: Glucerna Shake 120 ML LIQUID PO ×2 (08:00→15:52)
[2021-06-17] MEDS: Escitalopram Oxalate 20 MG Tablet PO (08:01)
--- NOTE | 2021-06-17 11:11 | PN.HOSP_ITS ---
Subjective Subjective Patient seen and examined. Pain is well controlled. Review of systems is otherwise negative. He has remained hemodynamically stable. Objective Data Objective Data Vital Signs: Vital Signs Temp Pulse Resp BP Pulse Ox 97.8 F 72 17 129/86 H 96 06/17/21 06:29 06/17/21 06:29 06/17/21 06:29 06/17/21 06:29 06/17/21 06:29 Oxygen Flow Rate (L/min) 2 Oxygen Delivery Method Room Air Weight: 287 lb 4.197 oz Body Mass Index (BMI) 37.9 Intake & Output: Intake and Output for Last 24 Hours 06/15/21 06/16/21 06/17/21 23:59 23:59 23:59 Intake Total 2673.34 / 2673.34 Output Total 920 / 920 Balance 1753.34 / 1753.34 Lab / Micro Data Result Diagrams: 06/17/21 05:22 06/17/21 05:22 Labs: Laboratory Results - last 24 hr 06/16/21 13:30: POC Glucose 136 H 06/16/21 17:38: POC Glucose 139 H 06/16/21 22:47: POC Glucose 371 H 06/17/21 05:22: WBC 10.5, RBC 4.36 L, Hgb 12.8 L, Hct 39.2 L, MCV 89.9, MCH 29.4, MCHC 32.7, RDW Std Deviation 47.7 H, RDW Coeff of Sunday 14.5, Plt Count 265, MPV 10.0, Immature Gran % (Auto) 0.400, Neut % (Auto) 78.9 H, Lymph % (Auto) 15.5 L, [place] % (Auto) 4.6, Eos % (Auto) 0.4, Baso % (Auto) 0.2, Absolute Neuts (auto) 8.3 H, Absolute Lymphs (auto) 1.63, Nucleated RBC % 0 06/17/21 05:22: Sodium 136, Potassium 4.3, Chloride 106, Carbon Dioxide 24.0, Anion Gap 6, BUN 14, Creatinine 0.84, Estim Creat Clear Calc 116.26, Est GFR (MDRD) Af Amer 123, Est GFR (MDRD) Non-Af 102, BUN/Creatinine Ratio 16.7, Glucose 276 H, Calcium 8.3 L 06/17/21 06:45: POC Glucose 235 H Micro: Microbiology 06/16/21 15:30 Wound - Back Gram Stain - Final 06/16/21 15:30 Wound - Back Wound Culture - Preliminary No growth-Final to follow 06/16/21 15:54 Tissue - Aerobic & Anaerobic Swabs Gram Stain - Final Physical Exam Const alert, oriented x3 and no apparent distress Exam Limitations: no limitations Nutritional Appearance: obese HEENT head/scalp atraumatic and moist oral mucous membranes Head and Scalp: normocephalic Eyes PERRL, EOMs intact bilaterally and conjunctivae normal Neck no lymphadenopathy Resp normal respiratory effort, no retractions, no use of accessory muscles and clear to auscultation bilaterally Cardio regular rate, regular rhythm, S1 normal heart sound, S2 normal heart sound and no murmurs GI normal to inspection, nondistended, normoactive bowel sounds, soft to palpation, non-tender and non-distended Extremity normal to inspection, full ROM and no clubbing, cyanosis or edema Peripheral Pulses: Yes pulses 2+ throughout Skin Skin Narrative: has wound vac in place on lower back. Neuro oriented x3, CN's II-XII intact bilaterally and moves all extremities Sensorium / Orientation: awake and alert Psych affect normal Assessment & Plan Assessment/Plan (1) Delayed surgical wound healing: (2) Cervical spondylosis with radiculopathy: PLAN: #Lumbar irrigation and debridement * POD 1 * this is due to delayed wound healing of a lumbar discectomy and laminotomy. * Id consulted, await recs. * on IV vancomycin and cefazolin, pending iD input * wound cultures pending * #Lumbosacral spondylosis with radiculopathy * on percocet, gabapentin and cyclobenzaprine * #Type 2 diabetes mellitus * on metformin * on Trulicity weekly (on ) * ISS. Accuchecks ACHS * #Hyperlipidemia: on statin DVT prophylaxis: on SCDs, as per primary team Charges/Coding Visit Charges Inpatient E&M: 33448 Subs Hosp L2
[2021-06-17 11:46] LABS: Bedside Glucose 211 mg/dL (70-110)
[2021-06-17] MEDS: Doxycycline 100 MG CAPSULE PO (12:53)
--- NOTE | 2021-06-17 13:08 | CASEMGMT ---
ROSY PETERSON in to pt room. Discussed options for pt with vac. Pt has gerson vac. Pt states [facility] called and said they would be out tomorrow. TC to Valentine intake at [facility], left message. Received returned call. She states referral was given to them by Arnaldo Branch but pt is not showing active insurance so they cannot see him. She states she notified pt of this. [facility]. She states [facility] and they will call him to set up an appt. TC to [facility], spoke with Soheila. She states referral was recieved and she will call pt to set up an appt on Tuesday with Dr. Longo. ROSY PETERSON back into pt room to make aware. Pt vac is beeping and nurse aware. Pt is aware to notify the [facility] if he experiences issues with the vac prior to the appt. Pt denies further needs.
--- NOTE | 2021-06-17 15:27 | CASEMGMT ---
Social Work Note Pt is listed as self-pay. SW in to speak with pt. SW introduced self and role. SW asked pt about insurance that his [employer] should be active today. SW informed pt that this worker will have [facility] check on pt's [employer] insurance again. Pt denied additional needs or concerns. LIAM placed a call to PFS and asked PFS to check pt's [employer] insurance again. Tami Marshall SCRAPER LOADER OPERATOR, GASTROENTEROLOGIST
[2021-06-17] MEDS: 0.9% Saline Lock 10 ML Syringe IV (15:58)
--- NOTE | 2021-06-17 16:01 | PCM.CONS.GEN ---
HPI Consult Data Date of Consult: 06/18/21 HPI Narrative HPI Narrative: error [facility] Medical History Arthritis Back pain CPAP (continuous positive airway pressure) dependence Diabetes History of steroid therapy Injury of back Injury of head and neck Kidney stones Sleep apnea Smoker Wears dentures Home Medications metformin 1,000 mg PO BID 11/01/19 [History Last Taken 11/05/19 05:30] Trulicity 1.5 mg SQ QWEEK 11/26/20 [History Last Taken 06/01/21] cyclobenzaprine 10 mg PO BID PRN 01/14/21 [History Last Taken Unknown] atorvastatin 40 mg PO DAILY 06/08/21 [History Last Taken Unknown] escitalopram oxalate [Lexapro] 20 mg PO DAILY 06/08/21 [History Last Taken Unknown] gabapentin 400 mg PO TID 06/08/21 [History Last Taken 06/09/21] oxycodone-acetaminophen 1 - 2 tab PO Q6H PRN PRN 06/08/21 [History Last Taken Unknown] doxycycline monohydrate 100 mg PO BID #20 cap 06/17/21 [Rx Last Taken Unknown] Allergy/AdvReac Type Severity Reaction Status Date / Time coconut Allergy Swelling Verified 06/16/21 13:34 Sulfa (Sulfonamide Allergy Swelling Verified 06/16/21 13:34 Antibiotics) Surgical History (Updated 06/15/21 @ 12:36 by Tiera Parsons) History of incision and drainage Hx of abdominal surgery Hx of anterior cruciate ligament surgery Hx of arthroscopic knee surgery Hx of carpal tunnel repair Hx of colonoscopy Hx of decompressive lumbar laminectomy Hx of elbow surgery Hx of laparoscopic gastric banding Hx of neck surgery Hx of rotator cuff surgery Social History (Updated 12/19/19 @ 07:14 by Harrison DUARTE, PA) Smoking Status: Current every day smoker tobacco type: cigarettes Lab / Micro Data Result Diagrams: 06/17/21 05:22 06/17/21 05:22 Labs: Laboratory Results - last 24 hr 06/16/21 17:38: POC Glucose 139 H 06/16/21 22:47: POC Glucose 371 H 06/17/21 05:22: WBC 10.5, RBC 4.36 L, Hgb 12.8 L, Hct 39.2 L, MCV 89.9, MCH 29.4, MCHC 32.7, RDW Std Deviation 47.7 H, RDW Coeff of Sunday 14.5, Plt Count 265, MPV 10.0, Immature Gran % (Auto) 0.400, Neut % (Auto) 78.9 H, Lymph % (Auto) 15.5 L, [place] % (Auto) 4.6, Eos % (Auto) 0.4, Baso % (Auto) 0.2, Absolute Neuts (auto) 8.3 H, Absolute Lymphs (auto) 1.63, Nucleated RBC % 0 06/17/21 05:22: Sodium 136, Potassium 4.3, Chloride 106, Carbon Dioxide 24.0, Anion Gap 6, BUN 14, Creatinine 0.84, Estim Creat Clear Calc 116.26, Est GFR (MDRD) Af Amer 123, Est GFR (MDRD) Non-Af 102, BUN/Creatinine Ratio 16.7, Glucose 276 H, Calcium 8.3 L 06/17/21 06:45: POC Glucose 235 H 06/17/21 11:38: POC Glucose 211 H Micro: Microbiology 06/16/21 15:30 Wound - Back Gram Stain - Final 06/16/21 15:30 Wound - Back Wound Culture - Preliminary No growth-Final to follow 06/16/21 15:54 Tissue - Aerobic & Anaerobic Swabs Gram Stain - Final
--- NOTE | 2021-06-17 17:12 | NURSING ---
talked with Molly moyer and dr. lara. clarified with Dr. Lara that they [place] vac is changed every 7 days not 3x/week. pt has an appointment set up with wound center on tuesdaywith Dr. Longo. agreeable with plan and order for DC.
--- NOTE | 2021-06-17 18:59 | CON.PCM.ID_ITS ---
Assessment & Plan Assessment/Plan (1) MSSA (methicillin susceptible Staphylococcus aureus) infection: PLAN: superficial surg site infection s/p L5-S1 laminectomy/discectomy. Ok for home with 10 days of po doxy to cover the mssa and MRSE. If does not improve, will need to consider longer course in case there was deeper involvement. Will follow as needed, thank you. Encouraged him and female partner to get covid vaccine. HPI Consult Data Date of Consult: 06/17/21 HPI Narrative HPI Narrative: UMER CLIFFORD, is a 50 M who had L5-S1 laminectomy/discectomy, complicated by ongoing drainage postop. Taken back to OR 06/09, surg cx with mssa and mrse. Given keflex and then clinda. Ongoing drainage, taken back 06/16 for I&D. No involvement below the fascia seen, wound vac placed. On vanc/cefazolin here. No fever, no redness around incision, pain stable. No n/v/d. Has not gotten covid shot. Full ROS performed and neg except as noted above. [facility] Medical History Arthritis Back pain CPAP (continuous positive airway pressure) dependence Diabetes History of steroid therapy Injury of back Injury of head and neck Kidney stones Sleep apnea Smoker Wears dentures Home Medications metformin 1,000 mg PO BID 11/01/19 [History Last Taken 11/05/19 05:30] Trulicity 1.5 mg SQ QWEEK 11/26/20 [History Last Taken 06/01/21] cyclobenzaprine 10 mg PO BID PRN 01/14/21 [History Last Taken Unknown] atorvastatin 40 mg PO DAILY 06/08/21 [History Last Taken Unknown] escitalopram oxalate [Lexapro] 20 mg PO DAILY 06/08/21 [History Last Taken Unknown] gabapentin 400 mg PO TID 06/08/21 [History Last Taken 06/09/21] oxycodone-acetaminophen 1 - 2 tab PO Q6H PRN PRN 06/08/21 [History Last Taken Unknown] doxycycline monohydrate 100 mg PO BID #20 cap 06/17/21 [Rx Last Taken Unknown] Allergy/AdvReac Type Severity Reaction Status Date / Time coconut Allergy Swelling Verified 06/16/21 13:34 Sulfa (Sulfonamide Allergy Swelling Verified 06/16/21 13:34 Antibiotics) Surgical History (Updated 06/15/21 @ 12:36 by Tiera Parsons) History of incision and drainage Hx of abdominal surgery Hx of anterior cruciate ligament surgery Hx of arthroscopic knee surgery Hx of carpal tunnel repair Hx of colonoscopy Hx of decompressive lumbar laminectomy Hx of elbow surgery Hx of laparoscopic gastric banding Hx of neck surgery Hx of rotator cuff surgery Social History (Updated 12/19/19 @ 07:14 by Harrison Newell PA, PA) Smoking Status: Current every day smoker tobacco type: cigarettes Physical Exam Const alert, oriented x3 and no apparent distress General Appearance: cooperative Exam Limitations: no limitations HEENT normocephalic and head/scalp atraumatic Eyes PERRL and EOMs intact bilaterally Neck supple and No nodes Resp normal air movement and clear to auscultation bilaterally Cardio regular rate and regular rhythm GI normal to inspection, nondistended, normoactive bowel sounds Extremity no clubbing, cyanosis or edema Skin Skin Narrative: lumbar incision with wound vac in place, no redness Neuro CN's II-XII intact bilaterally Lab / Micro Data Result Diagrams: 06/17/21 05:22 06/17/21 05:22 Labs: Laboratory Results - last 24 hr 06/16/21 22:47: POC Glucose 371 H 06/17/21 05:22: WBC 10.5, RBC 4.36 L, Hgb 12.8 L, Hct 39.2 L, MCV 89.9, MCH 29.4, MCHC 32.7, RDW Std Deviation 47.7 H, RDW Coeff of Sunday 14.5, Plt Count 265, MPV 10.0, Immature Gran % (Auto) 0.400, Neut % (Auto) 78.9 H, Lymph % (Auto) 15.5 L, [place] % (Auto) 4.6, Eos % (Auto) 0.4, Baso % (Auto) 0.2, Absolute Neuts (auto) 8.3 H, Absolute Lymphs (auto) 1.63, Nucleated RBC % 0 06/17/21 05:22: Sodium 136, Potassium 4.3, Chloride 106, Carbon Dioxide 24.0, Anion Gap 6, BUN 14, Creatinine 0.84, Estim Creat Clear Calc 116.26, Est GFR (MDRD) Af Amer 123, Est GFR (MDRD) Non-Af 102, BUN/Creatinine Ratio 16.7, Glucose 276 H, Calcium 8.3 L 06/17/21 06:45: POC Glucose 235 H 06/17/21 11:38: POC Glucose 211 H Micro: Microbiology 06/16/21 15:30 Wound - Back Gram Stain - Final 06/16/21 15:30 Wound - Back Wound Culture - Preliminary No growth-Final to follow 06/16/21 15:54 Tissue - Aerobic & Anaerobic Swabs Gram Stain - Final
== END 2021-06-17 17:27 | disposition home health service (06) ==
LOC: SDC 06-17 11:18 → MS3 06-17 11:18
PROVIDERS: Nurse Practitioner Family; Admitting Provider Orthopaedic Surgery; PCP Registered Nurse; Referring Provider Orthopaedic Surgery; Visit Provider Orthopaedic Surgery
PROC: (CPT 63030; principal; 2021-06-16 14:30)
DX: T81.31XA Disruption of external operation (surgical) wound, not elsewhere classified, initial encounter (principal); Y83.8 Other surgical procedures as the cause of abnormal reaction of the patient, or of later complication, without mention of misadventure at the time of the procedure; F17.210 Nicotine dependence, cigarettes, uncomplicated; E11.9 Type 2 diabetes mellitus without complications; M47.22 Other spondylosis with radiculopathy, cervical region; E78.5 Hyperlipidemia, unspecified; E66.01 Morbid (severe) obesity due to excess calories; Z68.41 Body mass index [BMI] 40.0-44.9, adult; G47.30 Sleep apnea, unspecified; M19.90 Unspecified osteoarthritis, unspecified site; G90.2 Horner's syndrome; Z79.899 Other long term (current) drug therapy; Z79.84 Long term (current) use of oral hypoglycemic drugs
CPT/HCPCS: 11043; 63042; 97607; 36415; 80048; 82962; 85025; 87070; 87075; 87205; 96361; 96365; 96366; 96367; 97802; 99218; J7040; J7120; A4216; G0378; J2405

== ENCOUNTER 2021-06-30 09:45 | Outpatient (RCR) | payer BC, SELFPAY ==
[2021-06-23 09:01] VITALS: BP 139/87; PULSE 77; RESP 18; TEMP 36.6; BMI 37.5
--- NOTE | 2021-06-23 13:08 | PCM.WC.HP ---
History of Present Illness Date of Service: 06/23/21 Chief Complaint: Dehiscent surgical incision, lumbar region, status-post laminotomy and discectomy History of Wound: This is a 50-year-old male who initially underwent a laminotomy and discectomy at the L5-S1 level on May 12, [address] Marcellus Brown.. He developed drainage and delayed healing at the site, and underwent wound exploration with irrigation and debridement on June 09, 2021. A second exploratory procedure was performed on June 16, 2021, at which time he underwent exploration of the wound with debridement. At the time of his most recent procedure, on June 16, 2021, a negative pressure device was applied, and the patient has been referred to the [facility] for ongoing management and oversight. The patient was admitted for short stay at [facility] approximately 1 week ago, at which time he was evaluated by the Infectious Disease service, Dr. Yanick Cain, and placed on doxycycline 100 mg p.o. twice daily for 10 days. A Staph aureus had been isolated from the patient's dehiscent surgical wound. At the time of the patient's initial presentation, his negative pressure device was seen to be rather full with a serosanguineous fluid. Patient's pre-existing medical problems include obesity, tobacco abuse, erectile dysfunction, obstructive sleep apnea, diabetes mellitus, and Fabienne's syndrome of the left face. [facility] Medical History (Updated 06/23/21 @ 13:[address] Aime Longo MD) Arthritis Back pain CPAP (continuous positive airway pressure) dependence Diabetes Diabetes mellitus History of steroid therapy Fabienne's syndrome Injury of back Injury of head and neck Kidney stones Obesity (BMI 30-39.9) IZAIAH (obstructive sleep apnea) Sleep apnea Smoker Surgical wound dehiscence Tobacco abuse Tobacco abuse counseling Urinary incontinence Wears dentures Home Medications metformin 1,000 mg PO BID 11/01/19 [History Last Taken 11/05/19 05:30] Trulicity 1.5 mg SQ QWEEK 11/26/20 [History Last Taken 06/01/21] cyclobenzaprine 10 mg PO BID PRN 01/14/21 [History Last Taken Unknown] atorvastatin 40 mg PO DAILY 06/08/21 [History Last Taken Unknown] escitalopram oxalate [Lexapro] 20 mg PO DAILY 06/08/21 [History Last Taken Unknown] gabapentin 400 mg PO TID 06/08/21 [History Last Taken 06/09/21] oxycodone-acetaminophen 1 - 2 tab PO Q6H PRN PRN 06/08/21 [History Last Taken Unknown] doxycycline monohydrate 100 mg PO BID #20 cap 06/17/21 [Rx Last Taken Unknown] Allergy/AdvReac Type Severity Reaction Status Date / Time coconut Allergy Swelling Verified 06/23/21 09:29 Sulfa (Sulfonamide Allergy Swelling Verified 06/23/21 09:29 Antibiotics) Surgical History History of incision and drainage Hx of abdominal surgery Hx of anterior cruciate ligament surgery Hx of arthroscopic knee surgery Hx of carpal tunnel repair Hx of colonoscopy Hx of decompressive lumbar laminectomy Hx of elbow surgery Hx of laparoscopic gastric banding Hx of neck surgery Hx of rotator cuff surgery Social History Smoking Status: Current every day smoker tobacco type: cigarettes Vital Signs Vital Signs Vital Signs: 06/23/21 09:01 Temperature 97.9 F Temperature Source Temporal Pulse Rate 77 Respiratory Rate 18 Blood Pressure 139/87 H Blood Pressure Mean 104 Blood Pressure Source Monitor Blood Pressure Position Sitting Blood Pressure Location Right Arm Oxygen Delivery Method Room Air Weight Weight: 285 lb Body Mass Index (BMI) 37.5 Physical Exam Const alert, oriented x3, no apparent distress and well nourished Constitutional Narrative: The patient is morbidly obese. General Appearance: cooperative, comfortable and well developed Orientation / Consciousness: awake, oriented to person, oriented to place and oriented to time Nutritional Appearance: morbidly obese HEENT normocephalic and head/scalp atraumatic Head and Scalp: normal to inspection, normocephalic and atraumatic External Ear: external ears normal Eyes PERRL and EOMs intact bilaterally General Eye: normal appearance of both eyes Resp normal respiratory effort, normal air movement, no retractions and no use of accessory muscles Effort and Inspection: able to speak in complete sentences Extremity no calf tenderness General Extremity: Negative for clubbing or cyanosis Skin Wound Narrative: A gaping, dehiscent surgical wound is noted in the lumbar area. There is a dehiscent midline vertical incision. The dimensions of the open dehiscent wound are documented elsewhere. There is no odor. There is no obvious drainage. There is no sign of infection or cellulitis. There does appear to be some surrounding skin irritation, likely due to topical dressings. The wound is largely pink and generally healthy in appearance. Visual and manual exploration of the wound reveals no evidence of exposed bone or skeletal structures. Neuro oriented x3, CN's II-XII intact bilaterally and moves all extremities Sensorium / Orientation: awake, alert, oriented to person, oriented to place and oriented to time Psych Appearance: grossly normal and appropriate Attitude: calm Activity / Motor Behavior: appropriate eye contact Speech: normal speech Mood & Affect: euthymic mood Thought Process: normal thought process Thought Content: normal thought content Attention / Concentration: attention grossly intact Debridement Note Debridement Note Post-Debridement Measurements and Additional Note: Post-Debridement Measurements/Treatment - Nurse 1 - General Ulcer Assessment Start: 06/23/21 08:57 Freq: Status: Active Protocol: .LOWEXT Activity Type Activity Date Activity User E-Sign Co-Sign Detail Recorded Client Recorded Date Recorded By Document 06/23/21 09:01 [facility] [id number] 06/23/21 09:28 [facility] 06/23/21 09:01 - Today's Visit Information Type of service Initial Visit Arrival Mode Ambulatory Transfer Assistance None Patient Identification Verified (Name & Yes ) Patient Requires Transmission-Based No Precautions Height and Weight Height 6 ft 1 in Weight 285 lb Weight in Pounds 285.0 lbs Weight Measurement Method Stated by Patient Body Mass Index (BMI) 37.5 BMI Classification Obese BSA - [place]avan 2.50 Vital Signs Temperature (97.8 F-99.1 F) 97.9 F Temperature Source Temporal Pulse Rate (60-100) 77 Pulse Location Monitor Respiratory Rate (12-18) 18 Respiratory rate source Observation Oxygen Delivery Method Room Air Blood Pressure (90/60-120/80) 139/87 H Blood Pressure Mean 104 Source Monitor Position Sitting Blood Pressure Location Right Arm History Since Last Visit- (Skip if this is Patient's initial visit) Left Footwear Regular Shoe Right Footwear Regular Shoe Communication Assessment Preferred language Czech Computer Consultant Required No Able to Read Yes Able to Write Yes Communication Tools None Right Hearing Abillity Normal Left Hearing Abillity Normal Visual Assistive Devices None Teaching Assessment Preferences Verbal,Written, Audio/Visual, Demonstration Barriers to Learning None Readiness To Learn Excellent Willingness to Engage in Self Management High Activies Readiness to Engage in Self Management High Activities Anxiety Level Calm Cooperation Cooperative Perception Coherent Interest in Health Problem Asks Questions Education Importance Acknowledges Need Does Patient Smoke tobacco or other Yes substances Smoking Status Current every day smoker Is Patient Diabetic Yes Culture/Taoism/Water Reclamation Systems Operator Cultural/Taoism Needs that may affect No Treatment Plan Teaching: Wound Center *Welcome to the Wound Center -Person Taught Patient -Teaching Method Discussion -Response to teaching Verbalize understanding Welcome to the Wound Care Center English [place] - Nurse 1 - General Ulcer Measurement Start: 06/23/21 08:57 Freq: Status: Active Protocol: Activity Type Activity Date Activity User E-Sign Co-Sign Detail Recorded Client Recorded Date Recorded By Document 06/23/21 09:01 [facility] [id number] 06/23/21 09:28 [facility] 06/23/21 09:01 Wound Center Nurse 1 #1- POST OP LUMBAR -Combined with other wound No -Current Size (cm) - Length 6.4 -Current Size (cm) - Width 1.6 -Current Size (cm) - Depth 4 -Total Square Cm 10.24 -Date of Last Picture (Recall this 06/23/21 field) -Photo Taken Yes -Epithelialization Large 67-100% -Tunneling No -Undermining/Tunneling No -Circular Undermining No -Exudate Amt Large -Exudate Type Serosanguineous -Wound Margin Distinct, Outline Attached -Granulation Amt Large (67-100%) -Granulation Quality Red -Slough/Fibrin Yes -Necrosis Amt Small (1-33%) -Necrotic Tissue Type Adherent Slough -Texture (Chiquita-wound Skin Appearance) Assessed, Scarring,Rash -Moisture (Chiquita-wound Skin Appearance) Assessed -Color (Chiquita-wound Skin Appearance) Assessed, Erythema -Temperature ([place]iquita-wound Skin No Abnormality Appearance) (Pt Warm) -Tenderness on Palpation (Chiquita-wound Yes Skin Appearance) -Ulcer Cleansing SOAPY WATER -Foul Odor after Cleansing No -Anesthetic Used 4% Lidocaine Solution RISHI - Nurse 2 - General Ulcer CM Notes Start: 06/23/21 08:57 Freq: Status: Active Protocol: Activity Type Activity Date Activity User E-Sign Co-Sign Detail Recorded Client Recorded Date Recorded By Document 06/23/21 12:00 PL [id number] 06/23/21 12:01 PL 06/23/21 12:00 Wound Center Nurse 2 -Time 09:45 -Correct Patient Yes -Correct Side, Site, Position Yes -Correct Procedure Yes -Procedure Performed Yes -Type of Procedure Debridement -Clinical Debridement Subcutaneous -Tissue Removed Subcutaneous -Post Debridement (cm) - Length 6.4 -Post Debridement (cm) - Width 1.6 -Post Debridement (cm) - Depth 4.0 -Total Square (Post) (cm) 10.24 -Area of Debridement (cm) - Length 6.4 -Area of Debridement (cm) - Width 0.6 -Total Square (Area) (cm) 3.84 -Tunneling No -Undermining/Tunneling No -Circular Undermining No -Wound/Ulcer Outcome Not Healed -Ulcer Cleansing Rinsed/ Irrigated with Saline -Foul Odor after Cleansing No -Bioengineered Tissue No -Bleeding Controlled with Pressure -Treatment Response Procedure Tolerated Well -Debridement - Subq, 1st 20sq cm Yes Wound debrided: Lumbar surgical dehiscent wound Type of Debridement: Excisional debridement Anesthesia Used: 5% Lidocaine Gel Depth: Down to and including healthy tissue and in the subcutaneous layer Percentage of wound debrided: 100 Instrument Used: 5mm curette Tissue Removed: Bioburden and nonviable tissue Severity: Fat Layer Exposed Amount of bleeding with debridement: Mild Bleeding Controlled with: Compression and gauze Patient tolerated procedure: Patient tolerated procedure well Assessment/Plan Assessment/Plan (1) Surgical wound dehiscence: CODE(S): T81.31XA - Disruption of external operation (surgical) wound, not elsewhere classified, initial encounter QUALIFIERS: Encounter type: initial encounter Qualified Code(s): T81.31XA - Disruption of external operation (surgical) wound, not elsewhere classified, initial encounter (2) Delayed surgical wound healing: CODE(S): T81.89XA - Other complications of procedures, not elsewhere classified, initial encounter QUALIFIERS: Encounter type: initial encounter Qualified Code(s): T81.89XA - Other complications of procedures, not elsewhere classified, initial encounter (3) MSSA (methicillin susceptible Staphylococcus aureus) infection: CODE(S): A49.01 - Methicillin susceptible Staphylococcus aureus infection, unspecified site (4) Obesity (BMI 30-39.9): CODE(S): E66.9 - Obesity, unspecified (5) Tobacco abuse: CODE(S): Z72.0 - Tobacco use (6) Tobacco abuse counseling: CODE(S): Z71.6 - Tobacco abuse counseling (7) IZAIAH (obstructive sleep apnea): CODE(S): G47.33 - Obstructive sleep apnea (adult) (pediatric) (8) Fabienne's syndrome: CODE(S): G90.2 - Fabinene's syndrome (9) Urinary incontinence: CODE(S): R32 - Unspecified urinary incontinence (10) Diabetes mellitus: CODE(S): E11.9 - Type 2 diabetes mellitus without complications PLAN: This is a 50-year-old obese diabetic male who underwent laminotomy and discectomy at the L5-S1 level on May 12, 2021. He subsequently developed drainage and delayed healing at the surgical site, and has undergone 2 subsequent wound explorations with exploration, irrigation, and debridement. His surgical wound is now dehiscent, and the patient has been referred for definitive management, envisioned to be optimal by means of negative pressure wound therapy. The patient has been evaluated, and his recent lab results from June 17, 2021, have been reviewed. It is also noted that he has been evaluated recently by the Infectious Disease service, and was placed on doxycycline 100 mg p.o. twice daily for 10 days, which continues until the current time. The patient has been advised to optimize his nutritional intake and his glycemic control. A discussion has been undertaken as to the patient's smoking habit, and the patient has been advised to quit or reduce his consumption. Indeed, the patient appears to be a good candidate for negative pressure wound therapy (NPWT), and we are to seek preauthorization from his insurance company for implementation/continuation of such treatment. In the interim, anticipated to be short-term, we will use gauze moistened with 0.25% Dakin's solution for packing of the patient's dehiscent wound on a daily basis. The patient will rely on his fianc?e for the daily packing changes. Once preauthorization has been granted by the patient's insurance company, we will need to the use of negative pressure wound therapy. Patient is to follow-up on a weekly basis, as per the routine of our wound center. Total time: 65 minutes
[2021-06-25 08:51] VITALS: BP 140/85; PULSE 75; RESP 18; TEMP 36.4; BMI 37.5
[2021-06-29 08:34] VITALS: TEMP 36.2; BMI 37.5
[2021-06-30 09:40] VITALS: BP 127/64; PULSE 74; TEMP 36.4; BMI 37.5
--- NOTE | 2021-06-30 14:55 | HP.PCM_ITS ---
History of Present Illness Date of Service: 06/30/21 Chief Complaint: Dehiscent surgical incision, lumbar region, status-post l aminotomy and discectomy History of Wound: This is a 50-year-old male who initially underwent a laminotomy and discectomy at the L5-S1 level on May 12, [address] Marcellus villagran. He developed drainage and delayed healing at the site, and underwent wound exploration with irrigation and debridement on June 09, 2021. A second exploratory procedure was performed on June 16, 2021, at which time he underwent exploration of the wound with debridement. At the time of his most recent procedure, on June 16, 2021, a negative pressure device was applied, and the patient has been referred to the [facility] for ongoing management and oversight. The patient was admitted for short stay at [facility] approximately 1 week ago, at which time he was evaluated by the Infectious Disease service, Dr. Yanick Cain, and placed on doxycycline 100 mg p.o. twice daily for 10 days. A Staph aureus had been isolated from the patient's dehiscent surgical wound. At the time of the patient's initial presentation, his negative pressure device was seen to be rather full with a serosanguineous fluid. Patient's pre- existing medical problems include obesity, tobacco abuse, erectile dysfunction, obstructive sleep apnea, diabetes mellitus, and Fabienne's syndrome of the left face. [facility] Medical History Arthritis Back pain CPAP (continuous positive airway pressure) dependence Diabetes Diabetes mellitus History of steroid therapy Fabienne's syndrome Injury of back Injury of head and neck Kidney stones Obesity (BMI 30-39.9) IZAIAH (obstructive sleep apnea) Sleep apnea Smoker Surgical wound dehiscence Tobacco abuse Tobacco abuse counseling Urinary incontinence Wears dentures Home Medications metformin 1,000 mg PO BID 11/01/19 [History Last Taken 11/05/19 05:30] Trulicity 1.5 mg SQ QWEEK 11/26/20 [History Last Taken 06/01/21] cyclobenzaprine 10 mg PO BID PRN 01/14/21 [History Last Taken Unknown] atorvastatin 40 mg PO DAILY 06/08/21 [History Last Taken Unknown] escitalopram oxalate [Lexapro] 20 mg PO DAILY 06/08/21 [History Last Taken Unknown] gabapentin 400 mg PO TID 06/08/21 [History Last Taken 06/09/21] oxycodone-acetaminophen 1 - 2 tab PO Q6H PRN PRN 06/08/21 [History Last Taken Unknown] doxycycline monohydrate 100 mg PO BID #20 cap 06/17/21 [Rx Last Taken Unknown] Allergy/AdvReac Type Severity Reaction Status Date / Time coconut Allergy Swelling Verified 06/23/21 09:29 Sulfa (Sulfonamide Allergy Swelling Verified 06/23/21 09:29 Antibiotics) Surgical History History of incision and drainage Hx of abdominal surgery Hx of anterior cruciate ligament surgery Hx of arthroscopic knee surgery Hx of carpal tunnel repair Hx of colonoscopy Hx of decompressive lumbar laminectomy Hx of elbow surgery Hx of laparoscopic gastric banding Hx of neck surgery Hx of rotator cuff surgery Social History Smoking Status: Current every day smoker tobacco type: cigarettes Vital Signs Vital Signs Vital Signs: 06/30/21 09:40 Temperature 97.5 F L Temperature Source Temporal Pulse Rate 74 Blood Pressure 127/64 H Blood Pressure Mean 85 Blood Pressure Source Monitor Blood Pressure Position Semi-Fowlers Blood Pressure Location Right Arm Weight Weight: 285 lb Body Mass Index (BMI) 37.5 Physical Exam Const alert, oriented x3, no apparent distress and well nourished Constitutional Narrative: The patient is obese. General Appearance: cooperative, comfortable and well developed Orientation / Consciousness: awake, oriented to person, oriented to place and oriented to time HEENT normocephalic and head/scalp atraumatic Head and Scalp: normal to inspection, normocephalic and atraumatic External Ear: external ears normal Eyes PERRL and EOMs intact bilaterally General Eye: normal appearance of both eyes Resp normal respiratory effort, normal air movement, no retractions and no use of accessory muscles Effort and Inspection: able to speak in complete sentences Extremity no calf tenderness General Extremity: Negative for clubbing or cyanosis Skin Wound Narrative: The dehiscent surgical wound persists in the patient's lumbar area. The wound is smaller in size than noted 1 week ago. Dimensions are documented elsewhere. There is no sign of infection or cellulitis. There is a moderate amount of bioburden. Neuro oriented x3, CN's II-XII intact bilaterally and moves all extremities Sensorium / Orientation: awake, alert, oriented to person, oriented to place and oriented to time Psych Appearance: grossly normal and appropriate Attitude: calm Activity / Motor Behavior: appropriate eye contact Speech: normal speech Mood & Affect: euthymic mood Thought Process: normal thought process Thought Content: normal thought content Attention / Concentration: attention grossly intact Debridement Note Debridement Note Post-Debridement Measurements and Additional Note: Post-Debridement Measurements/Treatment - Nurse 1 - General Ulcer Assessment Start: 06/23/21 08:57 Freq: Status: Active Protocol: RISHI.MRI InterventionsAdams Activity Type Activity Date Activity User E-Sign Co-Sign Detail Recorded Client Recorded Date Recorded By Document 06/23/21 09:01 [facility] [id number] 06/23/21 09:28 [facility] Document 06/25/21 08:[address] [id number] 06/25/21 08:53 PL Document 06/29/21 08:34 [place] [id number] 06/29/21 08:39 [place] Document 06/30/21 09:40 [place] [id number] 06/30/21 09:45 [place] 06/23/21 06/25/21 06/29/21 09:01 08:51 08:34 - Today's Visit Information Type of service Initial Visit Nurse-only Nurse-only Visit Visit Arrival Mode Ambulatory Ambulatory Ambulatory Transfer Assistance None None Patient Identification Verified (Name & Yes Yes Yes ) Patient Requires Transmission-Based No No Precautions Safety Precautions NA Height and Weight Height 6 ft 1 in Weight 285 lb Weight in Pounds 285.0 lbs Weight Measurement Method Stated by Patient Body Mass Index (BMI) 37.5 37.5 37.5 BMI Classification Obese Obese Obese BSA - [place] 2.50 Vital Signs Temperature (97.8 F-99.1 F) 97.9 F 97.6 F L 97.2 F L Temperature Source Temporal Temporal Temporal Pulse Rate (60-100) 77 75 Pulse Location Monitor Respiratory Rate (12-18) 18 18 Respiratory rate source Observation Oxygen Delivery Method Room Air Blood Pressure (90/60-120/80) 139/87 H 140/85 H Blood Pressure Mean 104 103 Source Monitor Position Sitting Blood Pressure Location Right Arm Have you changed medications since your No No last visit? Any new allergies or adverse reactions No No Had a fall/change in ADL's that may No No increase risk of falls Signs or symptoms of abuse and/or No No neglect since last visit Have you been in the hospital since your No No last visit? Has dressing in place as prescribed Yes Yes Has compression in place as prescribed N/A N/A Has offloadiing in place as prescribed N/A N/A Experienced any changes in pain level or No management History Since Last Visit- (Skip if this is Patient's initial visit) Left Footwear Regular Shoe Regular Shoe Right Footwear Regular Shoe Regular Shoe Pain Scale: 0-10 Numeric Is Patient Pain Free? Communication Assessment Preferred language [place] Required No Able to Read Yes Able to Write Yes Communication Tools None Right Hearing Abillity Normal Left Hearing Abillity Normal Visual Assistive Devices None Teaching Assessment Preferences Verbal,Written, Audio/Visual, Demonstration Barriers to Learning None Readiness To Learn Excellent Willingness to Engage in Self Management High Activies Readiness to Engage in Self Management High Activities Anxiety Level Calm Cooperation Cooperative Perception Coherent Interest in Health Problem Asks Questions Education Importance Acknowledges Need Does Patient Smoke tobacco or other Yes substances Smoking Status Current every day smoker Is Patient Diabetic Yes Culture/Lutheran/Gta Cultural/Lutheran Needs that may affect No Treatment Plan Teaching: Wound Center *Welcome to the Wound Center -Person Taught Patient -Teaching Method Discussion -Response to teaching Verbalize understanding Welcome to the Wound Care Center Indian 06/30/21 09:40 WC - Today's Visit Information Type of service Follow-up Visit (Physician/DIRECTOR OF SOFTWARE ENGINEERING ) Arrival Mode Ambulatory Transfer Assistance Patient Identification Verified (Name & Yes ) Patient Requires Transmission-Based Precautions Safety Precautions Height and Weight Height Weight Weight in Pounds Weight Measurement Method Body Mass Index (BMI) 37.5 BMI Classification Obese [facility] - [place] Vital Signs Temperature (97.8 F-99.1 F) 97.5 F L Temperature Source Temporal Pulse Rate (60-100) 74 Pulse Location Monitor Respiratory Rate (12-18) Respiratory rate source Oxygen Delivery Method Blood Pressure (90/60-120/80) 127/64 H Blood Pressure Mean 85 Source Monitor Position Semi-Fowlers Blood Pressure Location Right Arm Have you changed medications since your No last visit? Any new allergies or adverse reactions No Had a fall/change in ADL's that may No increase risk of falls Signs or symptoms of abuse and/or No neglect since last visit Have you been in the hospital since your No last visit? Has dressing in place as prescribed Yes Has compression in place as prescribed N/A Has offloadiing in place as prescribed N/A Experienced any changes in pain level or No management History Since Last Visit- (Skip if this is Patient's initial visit) Left Footwear Regular Shoe Right Footwear Regular Shoe Pain Scale: 0-10 Numeric Is Patient Pain Free? Yes Communication Assessment Preferred biblical languages professor Required Able to Read Able to Write Communication Tools Right Hearing Abillity Left Hearing Abillity Visual Assistive Devices Teaching Assessment Preferences Barriers to Learning Readiness To Learn Willingness to Engage in Self Management Activies Readiness to Engage in Self Management Activities Anxiety Level Cooperation Perception Interest in Health Problem Education Importance Does Patient Smoke tobacco or other substances Smoking Status Is Patient Diabetic Culture/Lutheran/Gta Cultural/Lutheran Needs that may affect Treatment Plan Teaching: Wound Center *Welcome to the Wound Center -Person Taught -Teaching Method -Response to teaching Welcome to the Wound Care Center WC - Nurse 1 - General Ulcer Measurement Start: 06/23/21 08:57 Freq: Status: Active Protocol: Activity Type Activity Date Activity User E-Sign Co-Sign Detail Recorded Client Recorded Date Recorded By Document 06/23/21 09:01 [facility] [id number] 06/23/21 09:28 [facility] Document 06/30/21 09:40 [place] [id number] 06/30/21 09:45 [place] 06/23/21 06/30/21 09:01 09:40 Wound Center Nurse 1 #1- POST OP LUMBAR -Combined with other wound No -Current Size (cm) - Length 6.4 6 -Current Size (cm) - Width 1.6 2 -Current Size (cm) - Depth 4 2.4 -Total Square Cm 10.24 12 -Date of Last Picture (Recall this 06/23/21 field) -Photo Taken Yes -Epithelialization Large 67-100% -Tunneling No -Undermining/Tunneling No -Circular Undermining No -Exudate Amt Large Small -Exudate Type Serosanguineous Serosanguineous -Wound Margin Distinct, Distinct, Outline Outline Attached Attached -Granulation Amt Large (67-100%) Medium (34-66%) -Granulation Quality Red Red -Slough/Fibrin Yes -Necrosis Amt Small (1-33%) Small (1-33%) -Necrotic Tissue Type Adherent Slough Adherent Slough -Texture (Chiquita-wound Skin Appearance) Assessed, Assessed, Scarring,Rash Scarring -Moisture ([place]iquita-wound Skin Appearance) Assessed No Abnormality, Assessed -Color ([place]iquita-wound Skin Appearance) Assessed, No Abnormality, Erythema Assessed -Temperature ([place]-wound Skin No Abnormality No Abnormality Appearance) (Pt Warm) (Pt Warm) -Tenderness on Palpation ([place]iquita-wound Yes No Skin Appearance) -Ulcer Cleansing SOAPY WATER Rinsed/ Irrigated with Saline -Foul Odor after Cleansing No No -Anesthetic Used 4% Lidocaine 4% Lidocaine Solution Solution - Nurse 2 - General Ulcer CM Notes Start: 06/23/21 08:57 Freq: Status: Active Protocol: Activity Type Activity Date Activity User E-Sign Co-Sign Detail Recorded Client Recorded Date Recorded By Document 06/23/21 12:00 PL [id number] 06/23/21 12:01 PL Document 06/30/21 13:12 PL [id number] 06/30/21 13:13 PL 06/23/21 06/30/21 12:00 13:12 Wound Center Nurse 2 -Time 09:45 10:39 -Correct Patient Yes Yes -Correct Side, Site, Position Yes Yes -Correct Procedure Yes Yes -Procedure Performed Yes Yes -Type of Procedure Debridement Debridement -Clinical Debridement Subcutaneous Subcutaneous -Tissue Removed Subcutaneous Subcutaneous -Post Debridement (cm) - Length 6.4 6.0 -Post Debridement (cm) - Width 1.6 2.0 -Post Debridement (cm) - Depth 4.0 2.4 -Total Square (Post) (cm) 10.24 12.00 -Area of Debridement (cm) - Length 6.4 6.0 -Area of Debridement (cm) - Width 0.6 2.0 -Total Square (Area) (cm) 3.84 12.00 -Tunneling No No -Undermining/Tunneling No No -Circular Undermining No No -Wound/Ulcer Outcome Not Healed Not Healed -Ulcer Cleansing Rinsed/ Rinsed/ Irrigated with Irrigated with Saline Saline -Foul Odor after Cleansing No No -Bioengineered Tissue No No -Bleeding Controlled with Pressure -Treatment Response Procedure Tolerated Well -Debridement - Subq, 1st 20sq cm Yes Yes - Nurse 3 - General Ulcer D/C NN Start: 06/23/21 08:57 Freq: Status: Active Protocol: Activity Type Activity Date Activity User E-Sign Co-Sign Detail Recorded Client Recorded Date Recorded By Document 06/25/21 08:51 PL [id number] 06/25/21 08:53 PL Document 06/29/21 08:34 [place] [id number] 06/29/21 08:39 AK Document 06/30/21 12:26 KR [id number] 06/30/21 12:26 KR 06/25/21 06/29/21 06/30/21 08:51 08:34 12:26 Vital Signs Temperature (97.8 F-99.1 F) 97.6 F L 97.2 F L Temperature Source Temporal Temporal Pulse Rate (60-100) 75 Respiratory Rate (12-18) 18 Blood Pressure (90/60-120/80) 140/85 H Blood Pressure Mean 103 Pain Scale: 0-10 Numeric Is Patient Pain Free? Yes Wound Care Nurse 3 #1- POST OP LUMBAR -Ulcer Cleansing Soap and Water Rinsed/ Rinsed/ Irrigated with Irrigated with Saline Saline -Foul Odor after Cleansing No -Negative Pressure Wound Therapy Start -Setting (mmHg) 125 125 -Negative Pressure is Continuous Continuous -Primary Dressing Applied Mepilex Border -Primary Dressing Covered/Secured with Dry Gauze -Other Covering wet to dry -NPWT Application Charge ($) NPWT </= 50 sq NPWT </= 50 sq cm (disp) cm (disp) -Mepilex Border 4 WC - Visit Discharge Discharge Condition Stable Stable Stable Ambulatory Status Ambulatory Ambulatory Ambulatory Transportation Private Auto Private Auto Private Auto Medication Reconcilliation completed & No provided to patient/care provider Clinical Summary of Care Provided No Yes Notes: His Snap-vac will not stay in place. This is his 3rd nurse visit so we just put wet to dry until his next visit. Wound debrided: Lumbar Type of Debridement: Excisional debridement Anesthesia Used: 5% Lidocaine Gel Depth: Down to and including healthy tissue and in the subcutaneous layer Percentage of wound debrided: 100 Instrument Used: 5mm curette Tissue Removed: Bioburden Severity: Fat Layer Exposed Amount of bleeding with debridement: Mild Bleeding Controlled with: Compression and gauze Patient tolerated procedure: Patient tolerated procedure well Assessment/Plan Assessment/Plan (1) Surgical wound dehiscence: CODE(S): T81.31XA - Disruption of external operation (surgical) wound, not elsewhere classified, initial encounter QUALIFIERS: Encounter type: initial encounter Qualified Code(s): T81.31XA - Disruption of external operation (surgical) wound, not elsewhere classified, initial encounter (2) Delayed surgical wound healing: CODE(S): T81.89XA - Other complications of procedures, not elsewhere classified, initial encounter QUALIFIERS: Encounter type: initial encounter Qualified Code(s): T81.89XA - Other complications of procedures, not elsewhere classified, initial encounter (3) Obesity (BMI 30-39.9): CODE(S): E66.9 - Obesity, unspecified (4) Diabetes mellitus: CODE(S): E11.9 - Type 2 diabetes mellitus without complications (5) Urinary incontinence: CODE(S): R32 - Unspecified urinary incontinence (6) Fabienne's syndrome: CODE(S): G90.2 - Fabienne's syndrome (7) IZAIAH (obstructive sleep apnea): CODE(S): G47.33 - Obstructive sleep apnea (adult) (pediatric) (8) Tobacco abuse counseling: CODE(S): Z71.6 - Tobacco abuse counseling (9) Tobacco abuse: CODE(S): Z72.0 - Tobacco use PLAN: This is a 50-year-old obese diabetic male who underwent laminotomy and discectomy at the L5-S1 level on May 12, 2021. He subsequently developed drainage and delayed healing at the surgical site, and has undergone 2 subsequent wound explorations with exploration, irrigation, and debridement. His surgical wound is now dehiscent, and the patient has been referred for definitive management, envisioned to be optimal by means of negative pressure wound therapy. The patient has been evaluated, and his recent lab results from June 17, 2021, have been reviewed. It is also noted that he has been evaluated recently by the Infectious Disease service, and was placed on doxycycline 100 mg p.o. twice daily for 10 days, which has been completed. The patient has been advised to optimize his nutritional intake and his glycemic control. A discussion has been undertaken as to the patient's smoking habit, and the patient has been advised to quit or reduce his consumption. Indeed, the patient appears to be a good candidate for negative pressure wound therapy (NPWT), and we have obtained approval from his insurance company for implementation of negative pressure wound therapy. The Snap VAC has been administered, and will be continued. The patient is to follow-up on a weekly basis, as per the routine of our wound center. Total time: 29 minutes
== END 2021-06-30 23:59 ==
LOC: WC 09:45
PROVIDERS: PCP Registered Nurse; Visit Provider Surgery
DX: T81.31XA Disruption of external operation (surgical) wound, not elsewhere classified, initial encounter (principal); T81.89XA Other complications of procedures, not elsewhere classified, initial encounter; Y79.2 Prosthetic and other implants, materials and accessory orthopedic devices associated with adverse incidents; E66.9 Obesity, unspecified; A49.01 Methicillin susceptible Staphylococcus aureus infection, unspecified site; E11.9 Type 2 diabetes mellitus without complications; R32 Unspecified urinary incontinence; G90.2 Horner's syndrome; G47.33 Obstructive sleep apnea (adult) (pediatric); F17.210 Nicotine dependence, cigarettes, uncomplicated; Z68.30 Body mass index [BMI] 30.0-30.9, adult; Z79.84 Long term (current) use of oral hypoglycemic drugs; N52.9 Male erectile dysfunction, unspecified
CPT/HCPCS: 11042; 97607; 99212; 99213; G0463

== ENCOUNTER 2021-07-06 11:12 | Emergency (ER) | payer BC, SELFPAY ==
[2021-07-06 11:13] VITALS: BP 113/99; PULSE 106; RESP 18; TEMP 36.8; O2SAT 98; BMI 38.0
--- NOTE | 2021-07-06 11:49 | EX.ED.DYSGE1 ---
HPI History of Present Illness Chief Complaint: Wound Check Informant: patient Narrative Narrative: 50-year-old male presents for the evaluation of wound check. Patient is a patient at the wound care clinic. He underwent back surgery and has surgical wound dehiscence. He notes he is a diabetic. He recently finished 1 month of antibiotics. He states that the wound VAC does not appear to be working correctly and there is a foul smell coming from it. He has an appointment Tuesday at the wound care clinic [facility] Medical History Arthritis Back pain CPAP (continuous positive airway pressure) dependence Diabetes Diabetes mellitus History of steroid therapy Fabienne's syndrome Injury of back Injury of head and neck Kidney stones Obesity (BMI 30-39.9) IZAIAH (obstructive sleep apnea) Sleep apnea Smoker Surgical wound dehiscence Tobacco abuse Tobacco abuse counseling Urinary incontinence Wears dentures Home Medications metformin 1,000 mg PO BID 11/01/19 [History Last Taken 11/05/19 05:30] Trulicity 1.5 mg SQ QWEEK 11/26/20 [History Last Taken 06/01/21] cyclobenzaprine 10 mg PO BID PRN 01/14/21 [History Last Taken Unknown] atorvastatin 40 mg PO DAILY 06/08/21 [History Last Taken Unknown] escitalopram oxalate [Lexapro] 20 mg PO DAILY 06/08/21 [History Last Taken Unknown] gabapentin 400 mg PO TID 06/08/21 [History Last Taken 06/09/21] oxycodone-acetaminophen 1 - 2 tab PO Q6H PRN PRN 06/08/21 [History Last Taken Unknown] doxycycline monohydrate 100 mg PO BID #20 cap 06/17/21 [Rx Last Taken Unknown] Allergy/AdvReac Type Severity Reaction Status Date / Time coconut Allergy Swelling Verified 07/06/21 11:14 Sulfa (Sulfonamide Allergy Swelling Verified 07/06/21 11:14 Antibiotics) Surgical History History of incision and drainage Hx of abdominal surgery Hx of anterior cruciate ligament surgery Hx of arthroscopic knee surgery Hx of carpal tunnel repair Hx of colonoscopy Hx of decompressive lumbar laminectomy Hx of elbow surgery Hx of laparoscopic gastric banding Hx of neck surgery Hx of rotator cuff surgery Social History (Updated 07/06/21 @ 11:[address] Chaparro Ash, DO) Smoking Status: Current every day smoker tobacco type: cigarettes substance use type: does not use ROS ROS ED Constitutional Constitutional ED: Denies chills or weight loss Eyes Eyes: Denies change in vision or diplopia ENT ENT ED: Denies ear pain, rhinorrhea or sore throat Cardiovascular Cardiovascular: Denies chest pain, orthopnea, palpitations or racing heartbeat Respiratory/Chest Respiratory/Chest: Denies cough, dyspnea or orthopnea Gastrointestinal Gastrointestinal: Denies abdominal pain, diarrhea, nausea or vomiting Genitourinary Genitourinary ED: Denies dysuria, hematuria or urinary frequency Musculoskeletal Musculoskeletal: Denies arthralgias or myalgias Integumentary Reports other Details: Chronic wound lumbar back ; Denies abscess or rash Neurologic Neurologic: Denies headache(s) or weakness Psychiatric Psychiatric: Denies anxiety, depression, suicidal ideation or suicidal thoughts Endocrine Endocrinology: Denies polydipsia, polyphagia or polyuria Allergic/Immunologic Allergic/Immunologic ED: Denies mouth swelling, tongue swelling or urticaria EXAM Physical Exam Const Vital Signs: 07/06/21 11:13 Temperature 98.2 F Temperature Source Temporal Pulse Rate 106 H Respiratory Rate 18 Blood Pressure 113/99 H Blood Pressure Mean 103 Pulse Ox 98 Oxygen Delivery Method Room Air Positive well nourished, well developed and obese General Appearance ED: well developed Nutritional Appearance: obese HEENT Reports normocephalic, head/scalp atraumatic and moist mucous membranes Eyes PERRL and EOMs intact bilaterally Neck no lymphadenopathy, supple and no JVD Resp normal respiratory effort and clear to auscultation bilaterally Cardio regular rate, regular rhythm and no murmurs GI normal to inspection, nondistended, normoactive bowel sounds and non-tender Palpation: soft Back/Spine no CVA tenderness and normal ROM Back/Spine Narrative: The dressing is on the back is virtually not adherent. This would explain why the wound VAC is not working. Extremity normal to inspection General Extremety ED: Negative for edema General Extremity: Negative for edema Neuro oriented x3 and CN's II-XII intact bilaterally Sensorium / Orientation: alert Motor Exam: strength 5/5 throughout Psych mental status grossly normal Mood & Affect: Negative for depressed or tearful Skin no rashes or lesions noted and no wounds MDM MDM MDM Narrative Medical decision making narrative: Nursing supervisor blast furnace informs we do not have a wound care nurse today nor do we have the supplies to change this over. We will apply a dressing and he should call the wound clinic tomorrow. Discharge Plan Triage Chief Complaint: Wound Check ED Provider: Chaparro Ash Dx/Rx/DC Orders Clinical Impression: Delayed surgical wound healing, Encounter for post surgical wound check Instructions: ED Post Op Wound Check, General Prescriptions: No Action metformin 500 MG tablet extended release 24 hr 1,000 mg PO BID RF: 0 Trulicity 1.5 MG/0.5 ML pen injector 1.5 mg SQ QWEEK RF: 0 cyclobenzaprine 10 MG tablet 10 mg PO BID PRN (Reason: MUSCLE SPASMS) RF: 0 atorvastatin 40 mg tablet 40 mg PO DAILY RF: 0 gabapentin 400 mg capsule 400 mg PO TID RF: 0 oxycodone-acetaminophen 5-325 mg tablet 1 - 2 tab PO Q6H PRN PRN (Reason: Pain) RF: 0 escitalopram oxalate [Lexapro] 20 mg tablet 20 mg PO DAILY RF: 0 doxycycline monohydrate 100 mg capsule 100 mg PO BID Qty: 20 RF: 0 Primary Care Provider: Chantal Barron NP Referrals: Chantal Barron NP, CREDIT RISK MANAGER-C [Primary Care Provider] - As Needed Activity Restrictions/Additional Instructions: Please call the wound clinic tomorrow inform them of the events. Disposition Disposition: Home, Self Care
[2021-07-06 13:21] VITALS: PULSE 86; RESP 16; O2SAT 99
== END 2021-07-06 13:23 | disposition home or self-care (01) ==
PROVIDERS: Emergency Provider Emergency Medicine; PCP Registered Nurse
DX: T81.89XA Other complications of procedures, not elsewhere classified, initial encounter (principal); Z48.01 Encounter for change or removal of surgical wound dressing; M19.90 Unspecified osteoarthritis, unspecified site; E11.9 Type 2 diabetes mellitus without complications; E66.9 Obesity, unspecified; F17.210 Nicotine dependence, cigarettes, uncomplicated; Z79.84 Long term (current) use of oral hypoglycemic drugs; Z79.899 Other long term (current) drug therapy
CPT/HCPCS: 99282

== ENCOUNTER 2021-07-29 08:15 | Outpatient (RCR) | payer BC, SELFPAY ==
[2021-07-01 00:44] VITALS: BP 127/64; PULSE 74; RESP 18; TEMP 36.4; BMI 37.5
[2021-07-07 09:04] VITALS: BP 129/84; PULSE 103; RESP 16; TEMP 35.9; BMI 37.5
[2021-07-08 09:32] VITALS: BP 126/74; PULSE 85; TEMP 35.9; BMI 37.5
--- NOTE | 2021-07-08 10:33 | HP.PCM_ITS ---
History of Present Illness Date of Service: 07/08/21 Chief Complaint: Dehiscent surgical incision, lumbar region, status-post l aminotomy and discectomy History of Wound: This is a 50-year-old male who initially underwent a laminotomy and discectomy at the L5-S1 level on May 12, [address] Marcellus villagran. He developed drainage and delayed healing at the site, and underwent wound exploration with irrigation and debridement on June 09, 2021. A second exploratory procedure was performed on June 16, 2021, at which time he underwent exploration of the wound with debridement. At the time of his most recent procedure, on June 16, 2021, a negative pressure device was applied, and the patient has been referred to the [facility] for ongoing management and oversight. The patient was admitted for short stay at [facility] approximately 1 week ago, at which time he was evaluated by the Infectious Disease service, Dr. Yanick Cain, and placed on doxycycline 100 mg p.o. twice daily for 10 days. A Staph aureus had been isolated from the patient's dehiscent surgical wound. At the time of the patient's initial presentation, his negative pressure device was seen to be rather full with a serosanguineous fluid. Patient's pre- existing medical problems include obesity, tobacco abuse, erectile dysfunction, obstructive sleep apnea, diabetes mellitus, and Fabienne's syndrome of the left face. [facility] Medical History Arthritis Back pain CPAP (continuous positive airway pressure) dependence Diabetes Diabetes mellitus History of steroid therapy Fabienne's syndrome Injury of back Injury of head and neck Kidney stones Obesity (BMI 30-39.9) IZAIAH (obstructive sleep apnea) Sleep apnea Smoker Surgical wound dehiscence Tobacco abuse Tobacco abuse counseling Urinary incontinence Wears dentures Home Medications metformin 1,000 mg PO BID 11/01/19 [History Last Taken 11/05/19 05:30] Trulicity 1.5 mg SQ QWEEK 11/26/20 [History Last Taken 06/01/21] cyclobenzaprine 10 mg PO BID PRN 01/14/21 [History Last Taken Unknown] atorvastatin 40 mg PO DAILY 06/08/21 [History Last Taken Unknown] escitalopram oxalate [Lexapro] 20 mg PO DAILY 06/08/21 [History Last Taken Unknown] gabapentin 400 mg PO TID 06/08/21 [History Last Taken 06/09/21] oxycodone-acetaminophen 1 - 2 tab PO Q6H PRN PRN 06/08/21 [History Last Taken Unknown] doxycycline monohydrate 100 mg PO BID #20 cap 06/17/21 [Rx Last Taken Unknown] Allergy/AdvReac Type Severity Reaction Status Date / Time coconut Allergy Swelling Verified 07/06/21 11:14 Sulfa (Sulfonamide Allergy Swelling Verified 07/06/21 11:14 Antibiotics) Surgical History History of incision and drainage Hx of abdominal surgery Hx of anterior cruciate ligament surgery Hx of arthroscopic knee surgery Hx of carpal tunnel repair Hx of colonoscopy Hx of decompressive lumbar laminectomy Hx of elbow surgery Hx of laparoscopic gastric banding Hx of neck surgery Hx of rotator cuff surgery Social History Smoking Status: Current every day smoker tobacco type: cigarettes substance use type: does not use ROS Constitutional Constitutional: Reports systems reviewed and no addt'l complaints, except as documented Integumentary Integumentary: Reports systems reviewed and no addt'l complaints, except as documented, dry skin, pruritus, rash, skin swelling and wounds Neurologic Neurologic: Reports systems reviewed and no addt'l complaints, except as documented Vital Signs Vital Signs Vital Signs: 07/08/21 09:32 Temperature 96.7 F L Temperature Source Temporal Pulse Rate 85 Blood Pressure 126/74 H Blood Pressure Mean 91 Blood Pressure Source Monitor Blood Pressure Position Semi-Fowlers Blood Pressure Location Left Arm Weight Weight: 285 lb Body Mass Index (BMI) 37.5 Physical Exam Const alert and oriented x3 General Appearance: cooperative Exam Limitations: no limitations HEENT normocephalic Head and Scalp: normal to inspection and other Other Details: rash Eyes PERRL General Eye: normal appearance of both eyes Neck full ROM General: normal visual inspection Lymph Lymphatic: no lymphadenopathy noted Chest inspection of chest normal Chest Narrative: rsh over his breasts and axilla upper back and head Chest: symmetrical chest wall rise Breast/Axilla Inspection: abnormal inspection of the axilla Resp normal respiratory effort Effort and Inspection: able to speak in complete sentences Auscultation: clear to auscultation bilaterally Cardio regular rate Jugular Venous Distention: Negative for JVD Palpation: normal PMI Rate: regular rate Rhythm: regular rhythm GI normal to inspection, nondistended, normoactive bowel sounds Back/Spine Lumbar Spine / Lower Back: Negative for normal to inspection Extremity normal to inspection Skin No no rashes or lesions noted and No no wounds General Skin Exam: dry skin, erythema, dermatitis and other hives Wounds: wounds noted Wound Narrative: surgical non-healing lumbar wound Neuro oriented x3 Psych Appearance: grossly normal Attitude: calm Activity / Motor Behavior: appropriate eye contact Speech: normal speech Attention / Concentration: attention grossly intact Memory / Cognition: memory grossly intact Judgement: judgement good Debridement Note Debridement Note Wound debrided: lumbar dehisced surgical wound Type of Debridement: Excisional debridement Anesthesia Used: 5% Lidocaine Gel Depth: Down to and including healthy tissue and to muscle Percentage of wound debrided: 100 Instrument Used: 5mm curette Tissue Removed: Fibrin Severity: Fat Layer Exposed Amount of bleeding with debridement: Mild Bleeding Controlled with: Compression and gauze Patient tolerated procedure: Patient tolerated procedure well Post-Debridement Measurements and Additional Note: Post-Debridement Measurements/Treatment - Nurse 1 - General Ulcer Assessment Start: 07/07/21 09:03 Freq: Status: Active Protocol: CORTNEY Activity Type Activity Date Activity User E-Sign Co-Sign Detail Recorded Client Recorded Date Recorded By Document 07/07/21 09:04 [facility] [id number] 07/07/21 09:06 [facility] Document 07/08/21 09:32 [id number] 07/08/21 09:36 07/07/21 07/08/21 09:04 09:32 - Today's Visit Information Type of service Nurse-only Follow-up Visit 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 ) Arrival Mode Ambulatory Ambulatory Transfer Assistance None Patient Identification Verified (Name & Yes Yes ) Patient Requires Transmission-Based No Precautions Height and Weight Body Mass Index (BMI) 37.5 37.5 BMI Classification Obese Obese Vital Signs Temperature (97.8 F-99.1 F) 96.7 F L 96.7 F L Temperature Source Temporal Temporal Pulse Rate (60-100) 103 H 85 Pulse Location Monitor Monitor Respiratory Rate (12-18) 16 Respiratory rate source Observation Oxygen Delivery Method Room Air Blood Pressure (90/60-120/80) 129/84 H 126/74 H Blood Pressure Mean 99 91 Source Monitor Monitor Position Sitting Semi-Fowlers Blood Pressure Location Left Arm Left Arm History Since Last Visit- (Skip if this is Patient's initial visit) Have you changed medications since your No No last visit? Any new allergies or adverse reactions No No Had a fall/change in ADL's that may No No increase risk of falls Signs or symptoms of abuse and/or No No neglect since last visit Have you been in the hospital since your Yes No last visit? Has dressing in place as prescribed No Yes Has compression in place as prescribed N/A N/A Has offloadiing in place as prescribed N/A N/A Experienced any changes in pain level or No No management Left Footwear Regular Shoe Regular Shoe Right Footwear Regular Shoe Regular Shoe Pain Scale: 0-10 Numeric Is Patient Pain Free? Yes Yes WC - Nurse 1 - General Ulcer Measurement Start: 07/07/21 09:03 Freq: Status: Active Protocol: Activity Type Activity Date Activity User E-Sign Co-Sign Detail Recorded Client Recorded Date Recorded By Document 07/08/21 09:32 [facility] [id number] 07/08/21 09:36 ROSS 07/08/21 09:32 Wound Center Nurse 1 #1- POST OP LUMBAR -Current Size (cm) - Length 6.5 -Current Size (cm) - Width 1.5 -Current Size (cm) - Depth 1.5 -Total Square Cm 9.75 -Tunneling Position (O'clock) 12 -Tunneling Distance (cm) 3.7 -Tunneling Position #2 (O'clock) 6 -Tunneling Distance #2 (cm) 2.6 -Exudate Amt Medium -Exudate Type Serosanguineous -Wound Margin Distinct, Outline Attached -Granulation Amt Large (67-100%) -Granulation Quality Red -Necrosis Amt Small (1-33%) -Necrotic Tissue Type Adherent Slough -Texture (Chiquita-wound Skin Appearance) Assessed, Scarring -Moisture (Chiquita-wound Skin Appearance) Assessed, Maceration,Dry/ Scaly -Color ([place]iquita-wound Skin Appearance) No Abnormality, Assessed -Temperature ([place]iquita-wound Skin No Abnormality Appearance) (Pt Warm) -Tenderness on Palpation (Chiquita-wound No Skin Appearance) -Ulcer Cleansing Rinsed/ Irrigated with Saline -Foul Odor after Cleansing No -Anesthetic Used 4% Lidocaine Solution WC - Nurse 2 - General Ulcer CM Notes Start: 07/07/21 09:03 Freq: Status: Active Protocol: Activity Type Activity Date Activity User E-Sign Co-Sign Detail Recorded Client Recorded Date Recorded By Document 07/08/21 09:58 MW [id number] 07/08/21 10:07 MW 07/08/21 09:58 Wound Center Nurse 2 -Time 09:58 -Correct Patient Yes -Correct Side, Site, Position Yes -Correct Procedure Yes -Procedure Performed Yes -Type of Procedure Debridement -Clinical Debridement Subcutaneous -Tissue Removed Subcutaneous -Post Debridement (cm) - Length 5.0 -Post Debridement (cm) - Width 1.2 -Post Debridement (cm) - Depth 2.8 -Total Square (Post) (cm) 6.00 -Area of Debridement (cm) - Length 5.0 -Area of Debridement (cm) - Width 1.2 -Total Square (Area) (cm) 6.00 -Tunneling No -Undermining/Tunneling No -Circular Undermining No -Wound/Ulcer Outcome Not Healed -Ulcer Cleansing Rinsed/ Irrigated with Saline -Foul Odor after Cleansing No -Bioengineered Tissue No -Bleeding Controlled with Pressure -Offloading No -Treatment Response Procedure Tolerated Well -Debridement - Subq, 1st 20sq cm Yes Pain Scale: 0-10 Numeric Is Patient Pain Free? Yes - Nurse 3 - General Ulcer D/C NN Start: 07/07/21 09:03 Freq: Status: Active Protocol: Activity Type Activity Date Activity User E-Sign Co-Sign Detail Recorded Client Recorded Date Recorded By Document 07/07/21 09:04 [facility] [id number] 07/07/21 09:06 [facility] 07/07/21 09:04 Vital Signs Temperature (97.8 F-99.1 F) 96.7 F L Temperature Source Temporal Pulse Rate (60-100) 103 H Pulse Location Monitor Respiratory Rate (12-18) 16 Respiratory rate source Observation Oxygen Delivery Method Room Air Blood Pressure (90/60-120/80) 129/84 H Blood Pressure Mean 99 Source Monitor Position Sitting Blood Pressure Location Left Arm Pain Scale: 0-10 Numeric Is Patient Pain Free? Yes Wound Care Nurse 3 #1- POST OP LUMBAR -Ulcer Cleansing soapy water -Foul Odor after Cleansing No -Primary Dressing Applied Other -Other Dressing moist to dry -Primary Dressing Covered/Secured with Other -Other Covering super absorber, secured w/ drape Treatment Response Procedure Tolerated Well WC - Visit Discharge Discharge Condition Stable Ambulatory Status Ambulatory Transportation Private Auto Assessment/Plan Assessment/Plan (1) Encounter for post surgical wound check: CODE(S): Z48.89 - Encounter for other specified surgical aftercare PLAN: Apply snap VAC till TCI wound VAC arrives Follow-up Tuesday for a follow-up nurse visit for the snap VAC Home health will be ordered for his wound care and VAC changes (2) Diabetes mellitus: CODE(S): E11.9 - Type 2 diabetes mellitus without complications QUALIFIERS: Diabetes mellitus complication status: without complication Diabetes mellitus superintendent [employer] insulin use: without superintendent [employer] use Diabetes mellitus type: type 2 Qualified Code(s): E11.9 - Type 2 diabetes mellitus without complications (3) Obesity (BMI 30-39.9): CODE(S): E66.9 - Obesity, unspecified (4) Surgical wound dehiscence: CODE(S): T81.31XA - Disruption of external operation (surgical) wound, not elsewhere classified, initial encounter QUALIFIERS: Encounter type: initial encounter Qualified Code(s): T81.31XA - Disruption of external operation (surgical) wound, not elsewhere classified, initial encounter (5) Hives: CODE(S): L50.9 - Urticaria, unspecified PLAN: Take prednisone 40 mg daily for 10 days Also take either Zyrtec or Claritin 2 times a day till rash clears Follow-up in 1 week
[2021-07-15 08:10] VITALS: BP 127/73; PULSE 67; TEMP 36.4; BMI 37.5
--- NOTE | 2021-07-15 09:44 | PN.PCM_ITS ---
History of Present Illness Date of Service: 07/15/21 Chief Complaint: Dehiscent surgical incision, lumbar region, status-post l aminotomy and discectomy History of Wound: This is a 50-year-old male who initially underwent a laminotomy and discectomy at the L5-S1 level on May 12, [address] Marcellus villagran. He developed drainage and delayed healing at the site, and underwent wound exploration with irrigation and debridement on June 09, 2021. A second exploratory procedure was performed on June 16, 2021, at which time he underwent exploration of the wound with debridement. At the time of his most recent procedure, on June 16, 2021, a negative pressure device was applied, and the patient has been referred to the [facility] for ongoing management and oversight. The patient was admitted for short stay at [facility] approximately 1 week ago, at which time he was evaluated by the Infectious Disease service, Dr. Yanick Cain, and placed on doxycycline 100 mg p.o. twice daily for 10 days. A Staph aureus had been isolated from the patient's dehiscent surgical wound. At the time of the patient's initial presentation, his negative pressure device was seen to be rather full with a serosanguineous fluid. Patient's pre- existing medical problems include obesity, tobacco abuse, erectile dysfunction, obstructive sleep apnea, diabetes mellitus, and Fabienne's syndrome of the left face. Progress of Wound: The snap VAC was unsuccessful and kept falling off patient has been packing with wet-to-dry since last . The wound VAC is still being preauthorized through insurance [employer]. In the meantime we will start packing with Aquacel extra moistened with Adaptic over top and gauze dressing and ABD. Patient states he still has pain in the lower back area. Discussed with puraply wrap and we could put a puraply in the base when we do get the Wound VAC. Wound is smaller in measurements and more shallow No odor noted Subjective Subjective No concerns at this time Objective Data Objective Data Debrides easily with the fibrin for blood. No odor noted measurements are smaller. The wound VAC would help a lot in the depth The wound is measuring smaller in depth and in size Vital Signs: Vital Signs Temp Pulse Resp BP 97.6 F L 67 16 127/73 H 07/15/21 08:10 07/15/21 08:10 07/07/21 09:04 07/15/21 08:10 Oxygen Delivery Method Room Air Weight: 285 lb Body Mass Index (BMI) 37.5 Lab / Micro Data Attestation: I reviewed the patient's lab results. Physical Exam Const alert and oriented x3 General Appearance: cooperative Exam Limitations: no limitations HEENT normocephalic Head and Scalp: normal to inspection and other Other Details: rash Eyes PERRL General Eye: normal appearance of both eyes Neck full ROM General: normal visual inspection Lymph Lymphatic: no lymphadenopathy noted Chest inspection of chest normal Chest Narrative: rsh over his breasts and axilla upper back and head Chest: symmetrical chest wall rise Breast/Axilla Inspection: abnormal inspection of the axilla Resp normal respiratory effort Effort and Inspection: able to speak in complete sentences Auscultation: clear to auscultation bilaterally Cardio regular rate Jugular Venous Distention: Negative for JVD Palpation: normal PMI Rate: regular rate Rhythm: regular rhythm GI normal to inspection, nondistended, normoactive bowel sounds Back/Spine Lumbar Spine / Lower Back: Negative for normal to inspection Extremity normal to inspection Skin No no rashes or lesions noted and No no wounds General Skin Exam: dry skin, erythema, dermatitis and other hives Wounds: wounds noted Wound Narrative: surgical non-healing lumbar wound Neuro oriented x3 Psych Appearance: grossly normal Attitude: calm Activity / Motor Behavior: appropriate eye contact Speech: normal speech Attention / Concentration: attention grossly intact Memory / Cognition: memory grossly intact Judgement: judgement good Debridement Note Debridement Note Wound debrided: Lower back dehisced surgical wound l Type of Debridement: Excisional debridement Anesthesia Used: 5% Lidocaine Gel Depth: in the subcutaneous layer and to muscle Percentage of wound debrided: 100 Instrument Used: 5mm curette Tissue Removed: Fibrin Severity: Fat Layer Exposed Amount of bleeding with debridement: Moderate Bleeding Controlled with: Compression and gauze Patient tolerated procedure: Patient tolerated procedure well Post-Debridement Measurements and Additional Note: Post-Debridement Measurements/Treatment WC - Nurse 1 - General Ulcer Assessment Start: 07/07/21 09:03 Freq: Status: Active Protocol: [email or web address].[email or web address] CARLOS Activity Type Activity Date Activity User E-Sign Co-Sign Detail Recorded Client Recorded Date Recorded By Document 07/07/21 09:04 [facility] [id number] 07/07/21 09:06 BMF Document 07/08/21 09:32 KR [id number] 07/08/21 09:36 KR Document 07/15/21 08:10 KR [id number] 07/15/21 08:13 KR 07/07/21 07/08/21 07/15/21 09:04 09:32 08:10 - Today's Visit Information Type of service Nurse-only Follow-up Visit Follow-up Visit Visit (Physician/HOOP MACHINE OPERATOR (Physician/HOOP MACHINE OPERATOR ) ) Arrival Mode Ambulatory Ambulatory Ambulatory Transfer Assistance None Patient Identification Verified (Name & Yes Yes Yes ) Patient Requires Transmission-Based No Precautions Height and Weight Body Mass Index (BMI) 37.5 37.5 37.5 BMI Classification Obese Obese Obese Vital Signs Temperature (97.8 F-99.1 F) 96.7 F L 96.7 F L 97.6 F L Temperature Source Temporal Temporal Temporal Pulse Rate (60-100) 103 H 85 67 Pulse Location Monitor Monitor Monitor Respiratory Rate (12-18) 16 Respiratory rate source Observation Oxygen Delivery Method Room Air Blood Pressure (90/60-120/80) 129/84 H 126/74 H 127/73 H Blood Pressure Mean (mm Hg) 99 91 91 Source Monitor Monitor Monitor Position Sitting Semi-Fowlers Sitting Blood Pressure Location Left Arm Left Arm Right Arm History Since Last Visit- (Skip if this is Patient's initial visit) Have you changed medications since your No No No last visit? Any new allergies or adverse reactions No No No Had a fall/change in ADL's that may No No No increase risk of falls Signs or symptoms of abuse and/or No No No neglect since last visit Have you been in the hospital since your Yes No No last visit? Has dressing in place as prescribed No Yes Yes Has compression in place as prescribed N/A N/A N/A Has offloadiing in place as prescribed N/A N/A N/A Experienced any changes in pain level or No No No management Left Footwear Regular Shoe Regular Shoe Regular Shoe Right Footwear Regular Shoe Regular Shoe Regular Shoe Pain Scale: 0-10 Numeric Is Patient Pain Free? Yes Yes Yes - Nurse 1 - General Ulcer Measurement Start: 07/07/21 09:03 Freq: Status: Active Protocol: Activity Type Activity Date Activity User E-Sign Co-Sign Detail Recorded Client Recorded Date Recorded By Document 07/08/21 09:32 KR [id number] 07/08/21 09:36 KR Document 07/15/21 08:10 KR [id number] 07/15/21 08:13 KR 07/08/21 07/15/21 09:32 08:10 Wound Center Nurse 1 #1- POST OP LUMBAR -Current Size (cm) - Length 6.5 4.6 -Current Size (cm) - Width 1.5 1.8 -Current Size (cm) - Depth 1.5 0.7 -Total Square Cm 9.75 8.28 -Tunneling Position (O'clock) 12 -Tunneling Distance (cm) 3.7 -Tunneling Position #2 (O'clock) 6 -Tunneling Distance #2 (cm) 2.6 -Exudate Amt Medium -Exudate Type Serosanguineous -Wound Margin Distinct, Distinct, Outline Outline Attached Attached -Granulation Amt Large (67-100%) Medium (34-66%) -Granulation Quality Red Red -Necrosis Amt Small (1-33%) Medium (34-66%) -Necrotic Tissue Type Adherent Slough Adherent Slough -Texture (Chiquita-wound Skin Appearance) Assessed, Assessed, Scarring Scarring -Moisture (Chiquita-wound Skin Appearance) Assessed, Assessed, Maceration,Dry/ Maceration Scaly -Color (Chiquita-wound Skin Appearance) No Abnormality, No Abnormality, Assessed Assessed -Temperature (Chiquita-wound Skin No Abnormality No Abnormality Appearance) (Pt Warm) (Pt Warm) -Tenderness on Palpation (Chiquita-wound No No Skin Appearance) -Ulcer Cleansing Rinsed/ Rinsed/ Irrigated with Irrigated with Saline Saline -Foul Odor after Cleansing No No -Anesthetic Used 4% Lidocaine 4% Lidocaine Solution Solution WC - Nurse 2 - General Ulcer CM Notes Start: 07/07/21 09:03 Freq: Status: Active Protocol: Activity Type Activity Date Activity User E-Sign Co-Sign Detail Recorded Client Recorded Date Recorded By Document 07/08/21 09:58 MW [id number] 07/08/21 10:07 MW Document 07/15/21 08:20 MW [id number] 07/15/21 08:39 MW 07/08/21 07/15/21 09:58 08:20 Wound Center Nurse 2 #1- POST OP LUMBAR -Time 09:58 08:20 -Correct Patient Yes Yes -Correct Side, Site, Position Yes Yes -Correct Procedure Yes Yes -Procedure Performed Yes Yes -Type of Procedure Debridement Debridement -Clinical Debridement Subcutaneous Subcutaneous -Tissue Removed Subcutaneous Subcutaneous -Post Debridement (cm) - Length 5.0 4.5 -Post Debridement (cm) - Width 1.2 1.8 -Post Debridement (cm) - Depth 2.8 2.0 -Total Square (Post) (cm) 6.00 8.10 -Area of Debridement (cm) - Length 5.0 4.5 -Area of Debridement (cm) - Width 1.2 1.8 -Total Square (Area) (cm) 6.00 8.10 -Tunneling No No -Undermining/Tunneling No No -Circular Undermining No No -Wound/Ulcer Outcome Not Healed Not Healed -Ulcer Cleansing Rinsed/ Rinsed/ Irrigated with Irrigated with Saline Saline -Foul Odor after Cleansing No No -Bioengineered Tissue No No -Bleeding Controlled with Pressure Pressure -Offloading No No -Treatment Response Procedure Procedure Tolerated Well Tolerated Well -Debridement - Subq, 1st 20sq cm Yes Yes Pain Scale: 0-10 Numeric Is Patient Pain Free? Yes Yes WC - Nurse 3 - General Ulcer D/C NN Start: 07/07/21 09:03 Freq: Status: Active Protocol: Activity Type Activity Date Activity User E-Sign Co-Sign Detail Recorded Client Recorded Date Recorded By Document 07/07/21 09:04 [facility] [id number] 07/07/21 09:06 [facility] Document 07/08/21 11:09 ME [id number] 07/08/21 11:10 ME Document 07/15/21 08:47 [place] [id number] 07/15/21 08:48 AK 07/07/21 07/08/21 07/15/21 09:04 11:09 08:47 Vital Signs Temperature (97.8 F-99.1 F) 96.7 F L Temperature Source Temporal Pulse Rate (60-100) 103 H Pulse Location Monitor Respiratory Rate (12-18) 16 Respiratory rate source Observation Oxygen Delivery Method Room Air Blood Pressure (90/60-120/80) 129/84 H Blood Pressure Mean (mm Hg) 99 Source Monitor Position Sitting Blood Pressure Location Left Arm Pain Scale: 0-10 Numeric Is Patient Pain Free? Yes Wound Care Nurse 3 #1- POST OP LUMBAR -Ulcer Cleansing soapy water Wound Cleanser Rinsed/ Irrigated with Saline -Foul Odor after Cleansing No No -Negative Pressure Wound Therapy Start N/A -Setting (mmHg) 125 -Negative Pressure is Continuous -Primary Dressing Applied Other Aquacel Extra -Other Dressing moist to dry -Primary Dressing Covered/Secured with Other Dry Gauze & Dry Gauze & Roll Gauze, Roll Gauze, Secured with Secured with Tape Tape -Other Covering super absorber, secured w/ drape -NPWT Application Charge ($) NPWT </= 50 sq cm (disp) -Aquacel Extra 1 Treatment Response Procedure Tolerated Well WC - Visit Discharge Discharge Condition Stable Stable Stable Ambulatory Status Ambulatory Ambulatory Ambulatory Transportation Private Auto Private Auto Private Auto Medication Reconcilliation completed & No No provided to patient/care provider Clinical Summary of Care Provided Yes Yes Notes: call if having seal problems Assessment/Plan Assessment/Plan (1) Surgical wound dehiscence: CODE(S): T81.31XA - Disruption of external operation (surgical) wound, not elsewhere classified, initial encounter QUALIFIERS: Encounter type: initial encounter Qualified Code(s): T81.31XA - Disruption of external operation (surgical) wound, not elsewhere classified, initial encounter PLAN: Wash area with antibacterial soap and water, pack with Aquacel extra and Adaptic over top gauze and ABD, Pending is the wound VAC per insurance. Discontinue the snap VAC Follow-up in 1 week (2) Delayed surgical wound healing: CODE(S): T81.89XA - Other complications of procedures, not elsewhere classified, initial encounter QUALIFIERS: Encounter type: initial encounter Qualified Code(s): T81.89XA - Other complications of procedures, not elsewhere classified, initial encounter (3) Obesity (BMI 30-39.9): CODE(S): E66.9 - Obesity, unspecified (4) Tobacco abuse: CODE(S): Z72.0 - Tobacco use
[2021-07-17 08:49] VITALS: BP 126/81; PULSE 78; RESP 18; TEMP 36.6; BMI 37.5
[2021-07-22 08:15] VITALS: BP 134/94; PULSE 82; RESP 16; TEMP 35.8; BMI 37.5
--- NOTE | 2021-07-22 08:52 | PN.PCM_ITS ---
History of Present Illness Date of Service: 07/22/21 Chief Complaint: Dehiscent surgical incision, lumbar region, status-post l aminotomy and discectomy History of Wound: This is a 50-year-old male who initially underwent a laminotomy and discectomy at the L5-S1 level on May 12, [address] Marcellus villagran. He developed drainage and delayed healing at the site, and underwent wound exploration with irrigation and debridement on June 09, 2021. A second exploratory procedure was performed on June 16, 2021, at which time he underwent exploration of the wound with debridement. At the time of his most recent procedure, on June 16, 2021, a negative pressure device was applied, and the patient has been referred to the [facility] for ongoing management and oversight. The patient was admitted for short stay at [facility] approximately 1 week ago, at which time he was evaluated by the Infectious Disease service, Dr. Yanick Cain, and placed on doxycycline 100 mg p.o. twice daily for 10 days. A Staph aureus had been isolated from the patient's dehiscent surgical wound. At the time of the patient's initial presentation, his negative pressure device was seen to be rather full with a serosanguineous fluid. Patient's pre- existing medical problems include obesity, tobacco abuse, erectile dysfunction, obstructive sleep apnea, diabetes mellitus, and Fabienne's syndrome of the left face. Progress of Wound: The snap VAC was unsuccessful and kept falling off patient has been packing with wet-to-dry. The wound VAC has been very successful and the wound is probably a quarter the size that it was patient is progressing well. No odor noted Subjective Subjective Having issues with the charging of the wound VAC hopefully they can get that fixed GABI Objective Data Objective Data The wound size is credibly smaller depth went from 6 cm down to less than 1 cm looks clean tolerating the wound VAC well we will increase pressure to 150 Vital Signs: Vital Signs Temp Pulse Resp BP 96.4 F L 82 16 134/94 H 07/22/21 08:15 07/22/21 08:15 07/22/21 08:15 07/22/21 08:15 Oxygen Delivery Method Room Air Weight: 285 lb Body Mass Index (BMI) 37.5 Lab / Micro Data Attestation: I reviewed the patient's lab results. Physical Exam Const alert and oriented x3 General Appearance: cooperative Exam Limitations: no limitations HEENT normocephalic Head and Scalp: normal to inspection and other Other Details: rash Eyes PERRL General Eye: normal appearance of both eyes Neck full ROM General: normal visual inspection Lymph Lymphatic: no lymphadenopathy noted Chest inspection of chest normal Chest Narrative: rsh over his breasts and axilla upper back and head Chest: symmetrical chest wall rise Breast/Axilla Inspection: abnormal inspection of the axilla Resp normal respiratory effort Effort and Inspection: able to speak in complete sentences Auscultation: clear to auscultation bilaterally Cardio regular rate Jugular Venous Distention: Negative for JVD Palpation: normal PMI Rate: regular rate Rhythm: regular rhythm GI normal to inspection, nondistended, normoactive bowel sounds Back/Spine Lumbar Spine / Lower Back: Negative for normal to inspection Extremity normal to inspection Skin No no rashes or lesions noted and No no wounds General Skin Exam: dry skin, erythema, dermatitis and other hives Wounds: wounds noted Wound Narrative: surgical non-healing lumbar wound Neuro oriented x3 Psych Appearance: grossly normal Attitude: calm Activity / Motor Behavior: appropriate eye contact Speech: normal speech Attention / Concentration: attention grossly intact Memory / Cognition: memory grossly intact Judgement: judgement good Debridement Note Debridement Note Wound debrided: Lower back dehisced wound Type of Debridement: Excisional debridement Anesthesia Used: 5% Lidocaine Gel Depth: Down to and including healthy tissue and in the subcutaneous layer Percentage of wound debrided: 100 Instrument Used: 7mm curette Tissue Removed: Fibrin Severity: Fat Layer Exposed Amount of bleeding with debridement: None Bleeding Controlled with: Pressure Patient tolerated procedure: Patient tolerated procedure well Post-Debridement Measurements and Additional Note: Post-Debridement Measurements/Treatment WC - Nurse 1 - General Ulcer Assessment Start: 07/07/21 09:03 Freq: Status: Active Protocol: CORTNEY Activity Type Activity Date Activity User E-Sign Co-Sign Detail Recorded Client Recorded Date Recorded By Document 07/07/21 09:04 [facility] [id number] 07/07/21 09:06 BMF Document 07/08/21 09:32 KR [id number] 07/08/21 09:36 KR Document 07/15/21 08:10 KR [id number] 07/15/21 08:13 KR Document 07/17/21 08:49 RB [id number] 07/17/21 08:51 RB Document 07/22/21 08:15 KR [id number] 07/22/21 08:18 KR 07/07/21 07/08/21 07/15/21 09:04 09:32 08:10 WC - Today's Visit Information Type of service Nurse-only Follow-up Visit Follow-up Visit Visit (Physician/NETWORK TECHNOLOGY INSTRUCTOR (Physician/NETWORK TECHNOLOGY INSTRUCTOR ) ) Arrival Mode Ambulatory Ambulatory Ambulatory Transfer Assistance None Patient Identification Verified (Name & Yes Yes Yes ) Patient Requires Transmission-Based No Precautions Height and Weight Body Mass Index (BMI) 37.5 37.5 37.5 BMI Classification Obese Obese Obese Vital Signs Temperature (97.8 F-99.1 F) 96.7 F L 96.7 F L 97.6 F L Temperature Source Temporal Temporal Temporal Pulse Rate (60-100) 103 H 85 67 Pulse Location Monitor Monitor Monitor Respiratory Rate (12-18) 16 Respiratory rate source Observation Oxygen Delivery Method Room Air Blood Pressure (90/60-120/80) 129/84 H 126/74 H 127/73 H Blood Pressure Mean (mm Hg) 99 91 91 Source Monitor Monitor Monitor Position Sitting Semi-Fowlers Sitting Blood Pressure Location Left Arm Left Arm Right Arm History Since Last Visit- (Skip if this is Patient's initial visit) Have you changed medications since your No No No last visit? Any new allergies or adverse reactions No No No Had a fall/change in ADL's that may No No No increase risk of falls Signs or symptoms of abuse and/or No No No neglect since last visit Have you been in the hospital since your Yes No No last visit? Has dressing in place as prescribed No Yes Yes Has compression in place as prescribed N/A N/A N/A Has offloadiing in place as prescribed N/A N/A N/A Experienced any changes in pain level or No No No management Left Footwear Regular Shoe Regular Shoe Regular Shoe Right Footwear Regular Shoe Regular Shoe Regular Shoe Pain Scale: 0-10 Numeric Is Patient Pain Free? Yes Yes Yes 07/17/21 07/22/21 08:49 08:15 WC - Today's Visit Information Type of service Nurse-only Follow-up Visit Visit (Physician/NETWORK TECHNOLOGY INSTRUCTOR ) Arrival Mode Ambulatory Ambulatory Transfer Assistance None None Patient Identification Verified (Name & Yes Yes ) Patient Requires Transmission-Based No No Precautions Height and Weight Body Mass Index (BMI) 37.5 37.5 BMI Classification Obese Obese Vital Signs Temperature (97.8 F-99.1 F) 98 F 96.4 F L Temperature Source Temporal Temporal Pulse Rate (60-100) 78 82 Pulse Location Monitor Monitor Respiratory Rate (12-18) 18 16 Respiratory rate source Observation Observation Oxygen Delivery Method Room Air Blood Pressure (90/60-120/80) 126/81 H 134/94 H Blood Pressure Mean (mm Hg) 96 107 Source Monitor Monitor Position Sitting Supine Blood Pressure Location Left Arm History Since Last Visit- (Skip if this is Patient's initial visit) Have you changed medications since your No No last visit? Any new allergies or adverse reactions No No Had a fall/change in ADL's that may No No increase risk of falls Signs or symptoms of abuse and/or No No neglect since last visit Have you been in the hospital since your No No last visit? Has dressing in place as prescribed Yes Yes Has compression in place as prescribed No N/A Has offloadiing in place as prescribed No N/A Experienced any changes in pain level or No No management Left Footwear Regular Shoe Right Footwear Regular Shoe Pain Scale: 0-10 Numeric Is Patient Pain Free? Yes Yes WC - Nurse 1 - General Ulcer Measurement Start: 07/07/21 09:03 Freq: Status: Active Protocol: Activity Type Activity Date Activity User E-Sign Co-Sign Detail Recorded Client Recorded Date Recorded By Document 07/08/21 09:32 KR [id number] 07/08/21 09:36 KR Document 07/15/21 08:10 KR [id number] 07/15/21 08:13 KR Document 07/17/21 08:49 RB [id number] 07/17/21 08:51 RB Document 07/22/21 08:15 KR [id number] 07/22/21 08:18 KR 07/08/21 07/15/21 07/17/21 09:32 08:10 08:49 Wound Center Nurse 1 #1- POST OP LUMBAR -Combined with other wound -Current Size (cm) - Length 6.5 4.6 -Current Size (cm) - Width 1.5 1.8 -Current Size (cm) - Depth 1.5 0.7 -Total Square Cm 9.75 8.28 -Photo Taken -Epithelialization -Tunneling No -Tunneling Position (O'clock) 12 -Tunneling Distance (cm) 3.7 -Tunneling Position #2 (O'clock) 6 -Tunneling Distance #2 (cm) 2.6 -Undermining/Tunneling No -Circular Undermining No -Exudate Amt Medium Medium -Exudate Type Serosanguineous Serosanguineous -Wound Margin Distinct, Distinct, Distinct, Outline Outline Outline Attached Attached Attached -Granulation Amt Large (67-100%) Medium (34-66%) Medium (34-66%) -Granulation Quality Red Red [place],Red -Slough/Fibrin Yes -Necrosis Amt Small (1-33%) Medium (34-66%) Small (1-33%) -Necrotic Tissue Type Adherent Slough Adherent Slough Adherent Slough -Structure Exposed N/A -Texture (Chiquita-wound Skin Appearance) Assessed, Assessed, Assessed, Scarring Scarring Scarring -Moisture (Chiquita-wound Skin Appearance) Assessed, Assessed, Assessed Maceration,Dry/ Maceration Scaly -Color (Chiquita-wound Skin Appearance) No Abnormality, No Abnormality, Assessed Assessed Assessed -Temperature (Chiquita-wound Skin No Abnormality No Abnormality No Abnormality Appearance) (Pt Warm) (Pt Warm) (Pt Warm) -Tenderness on Palpation (Chiquita-wound No No No Skin Appearance) -Ulcer Cleansing Rinsed/ Rinsed/ Wound Cleanser Irrigated with Irrigated with Saline Saline -Foul Odor after Cleansing No No No -Anesthetic Used 4% Lidocaine 4% Lidocaine Solution Solution 07/22/21 08:15 Wound Center Nurse 1 #1- POST OP LUMBAR -Combined with other wound No -Current Size (cm) - Length 4 -Current Size (cm) - Width 1.5 -Current Size (cm) - Depth 0.5 -Total Square Cm 6.0 -Photo Taken No -Epithelialization Small 1-33% -Tunneling No -Tunneling Position (O'clock) -Tunneling Distance (cm) -Tunneling Position #2 (O'clock) -Tunneling Distance #2 (cm) -Undermining/Tunneling No -Circular Undermining No -Exudate Amt Medium -Exudate Type Serosanguineous -Wound Margin Distinct, Outline Attached -Granulation Amt Large (67-100%) -Granulation Quality [place] -Slough/Fibrin Yes -Necrosis Amt Small (1-33%) -Necrotic Tissue Type Adherent Slough -Structure Exposed -Texture (Chiquita-wound Skin Appearance) Assessed, Scarring -Moisture (Chiquita-wound Skin Appearance) Assessed, Maceration -Color (Chiquita-wound Skin Appearance) Assessed,Palor -Temperature (Chiquita-wound Skin No Abnormality Appearance) (Pt Warm) -Tenderness on Palpation (Chiquita-wound No Skin Appearance) -Ulcer Cleansing Rinsed/ Irrigated with Saline -Foul Odor after Cleansing No -Anesthetic Used 5% Lidocaine Gel WC - Nurse 2 - General Ulcer CM Notes Start: 07/07/21 09:03 Freq: Status: Active Protocol: Activity Type Activity Date Activity User E-Sign Co-Sign Detail Recorded Client Recorded Date Recorded By Document 07/08/21 09:58 MW [id number] 07/08/21 10:07 MW Document 07/15/21 08:20 MW [id number] 07/15/21 08:39 MW Document 07/22/21 08:28 MW [id number] 07/22/21 08:30 MW 07/08/21 07/15/21 07/22/21 09:58 08:20 08:28 Wound Center Nurse 2 #1- POST OP LUMBAR -Time 09:58 08:20 08:28 -Correct Patient Yes Yes Yes -Correct Side, Site, Position Yes Yes Yes -Correct Procedure Yes Yes Yes -Procedure Performed Yes Yes Yes -Type of Procedure Debridement Debridement Debridement -Clinical Debridement Subcutaneous Subcutaneous Subcutaneous -Tissue Removed Subcutaneous Subcutaneous Subcutaneous -Post Debridement (cm) - Length 5.0 4.5 3.8 -Post Debridement (cm) - Width 1.2 1.8 1.0 -Post Debridement (cm) - Depth 2.8 2.0 0.6 -Total Square (Post) (cm) 6.00 8.10 3.80 -Area of Debridement (cm) - Length 5.0 4.5 3.8 -Area of Debridement (cm) - Width 1.2 1.8 1.0 -Total Square (Area) (cm) 6.00 8.10 3.80 -Tunneling No No No -Undermining/Tunneling No No No -Circular Undermining No No No -Wound/Ulcer Outcome Not Healed Not Healed Not Healed -Ulcer Cleansing Rinsed/ Rinsed/ Rinsed/ Irrigated with Irrigated with Irrigated with Saline Saline Saline -Foul Odor after Cleansing No No No -Bioengineered Tissue No No No -Bleeding Controlled with Pressure Pressure Pressure -Offloading No No No -Treatment Response Procedure Procedure Procedure Tolerated Well Tolerated Well Tolerated Well -Debridement - Subq, 1st 20sq cm Yes Yes Yes Pain Scale: 0-10 Numeric Is Patient Pain Free? Yes Yes Yes WC - Nurse 3 - General Ulcer D/C NN Start: 07/07/21 09:03 Freq: Status: Active Protocol: Activity Type Activity Date Activity User E-Sign Co-Sign Detail Recorded Client Recorded Date Recorded By Document 07/07/21 09:04 BM [id number] 07/07/21 09:06 BM Document 07/08/21 11:09 MT [id number] 07/08/21 11:10 MT Document 07/15/21 08:47 AK [id number] 07/15/21 08:48 AK Document 07/17/21 08:49 RB [id number] 07/17/21 08:51 RB 07/07/21 07/08/21 07/15/21 09:04 11:09 08:47 Vital Signs Temperature (97.8 F-99.1 F) 96.7 F L Temperature Source Temporal Pulse Rate (60-100) 103 H Pulse Location Monitor Respiratory Rate (12-18) 16 Respiratory rate source Observation Oxygen Delivery Method Room Air Blood Pressure (90/60-120/80) 129/84 H Blood Pressure Mean (mm Hg) 99 Source Monitor Position Sitting Blood Pressure Location Left Arm Pain Scale: 0-10 Numeric Is Patient Pain Free? Yes Wound Care Nurse 3 #1- POST OP LUMBAR -Ulcer Cleansing soapy water Wound Cleanser Rinsed/ Irrigated with Saline -Foul Odor after Cleansing No No -Negative Pressure Wound Therapy Start N/A -Setting (mmHg) 125 -Negative Pressure is Continuous -Primary Dressing Applied Other Aquacel Extra -Other Dressing moist to dry -Primary Dressing Covered/Secured with Other Dry Gauze & Dry Gauze & Roll Gauze, Roll Gauze, Secured with Secured with Tape Tape -Other Covering super absorber, secured w/ drape -NPWT Application Charge NPWT </= 50 sq cm (disp) ($) -Aquacel Extra 1 Chiquita-Wound Care Treatment Response Procedure Tolerated Well WC - Visit Discharge Discharge Condition Stable Stable Stable Ambulatory Status Ambulatory Ambulatory Ambulatory Transportation Private Auto Private Auto Private Auto Medication Reconcilliation completed & No No provided to patient/care provider Clinical Summary of Care Provided Yes Yes Notes: call if having seal problems 07/17/21 08:49 Vital Signs Temperature (97.8 F-99.1 F) 98 F Temperature Source Temporal Pulse Rate (60-100) 78 Pulse Location Monitor Respiratory Rate (12-18) 18 Respiratory rate source Observation Oxygen Delivery Method Blood Pressure (90/60-120/80) 126/81 H Blood Pressure Mean (mm Hg) 96 Source Monitor Position Sitting Blood Pressure Location Left Arm Pain Scale: 0-10 Numeric Is Patient Pain Free? Yes Wound Care Nurse 3 #1- POST OP LUMBAR -Ulcer Cleansing Wound Cleanser -Foul Odor after Cleansing -Negative Pressure Wound Therapy Start -Setting (mmHg) 125 -Negative Pressure is Continuous -Primary Dressing Applied -Other Dressing -Primary Dressing Covered/Secured with -Other Covering -NPWT Application Charge NPWT </= 50 sq cm ($) -Aquacel Extra [place]iquita-Wound Care Barrier Treatment Response Procedure Tolerated Well WC - Visit Discharge Discharge Condition Stable Ambulatory Status Ambulatory Transportation Private Auto Medication Reconcilliation completed & No provided to patient/care provider Clinical Summary of Care Provided Yes Notes: Assessment/Plan Assessment/Plan (1) Surgical wound dehiscence: CODE(S): T81.31XA - Disruption of external operation (surgical) wound, not elsewhere classified, initial encounter QUALIFIERS: Encounter type: initial encounter Qualified Code(s): T81.31XA - Disruption of external operation (surgical) wound, not elsewhere classified, initial encounter PLAN: Wound VAC at 150 mmHg reapply twice weekly or once weekly depending on patient's tolerance. Follow-up in 1 week (2) Delayed surgical wound healing: CODE(S): T81.89XA - Other complications of procedures, not elsewhere classified, initial encounter QUALIFIERS: Encounter type: initial encounter Qualified Code(s): T81.89XA - Other complications of procedures, not elsewhere classified, initial encounter (3) Obesity (BMI 30-39.9): CODE(S): E66.9 - Obesity, unspecified (4) Tobacco abuse: CODE(S): Z72.0 - Tobacco use
[2021-07-29 08:13] VITALS: BP 144/93; PULSE 79; TEMP 36.4; BMI 37.5
--- NOTE | 2021-07-29 10:24 | PN.PCM_ITS ---
History of Present Illness Date of Service: 07/29/21 Chief Complaint: Dehiscent surgical incision, lumbar region, status-post l aminotomy and discectomy History of Wound: This is a 50-year-old male who initially underwent a laminotomy and discectomy at the L5-S1 level on May 12, [address] Marcellus shaikh.. He developed drainage and delayed healing at the site, and underwent wound exploration with irrigation and debridement on June 09, 2021. A second exploratory procedure was performed on June 16, 2021, at which time he underwent exploration of the wound with debridement. At the time of his most recent procedure, on June 16, 2021, a negative pressure device was applied, and the patient has been referred to the [facility] for ongoing management and oversight. The patient was admitted for short stay at [facility] approximately 1 week ago, at which time he was evaluated by the Infectious Disease service, Dr. Yanick Cain, and placed on doxycycline 100 mg p.o. twice daily for 10 days. A Staph aureus had been isolated from the patient's dehiscent surgical wound. At the time of the patient's initial presentation, his negative pressure device was seen to be rather full with a serosanguineous fluid. Patient's pre- existing medical problems include obesity, tobacco abuse, erectile dysfunction, obstructive sleep apnea, diabetes mellitus, and Fabienne's syndrome of the left face. Progress of Wound: The snap VAC was unsuccessful and kept falling off patient has been packing with wet-to-dry. The wound VAC has been very successful and the wound is probably a quarter the size that it was patient is progressing well. No odor noted Again this week the wound is smaller and more shallow patient begs to have the VAC off. We will give a week rest and try closing him with Promogran. We will not discontinue the wound VAC will check it out another week and see if it worsens or gets better on the Promogran. Patient has an appointment with the surgeon in this next week. We will obtain cultures this week just to make sure everything is going well. Subjective Subjective Patient has pain in the lower back from the surgery. Complains of the wound VAC. We will try a different product for 1 week and see if we see a difference. Objective Data Objective Data Wound looks clean area around the skin is nice no sign of rash patient states his is using antifungal cream and it got rid of it in a day. Wound VAC not getting any discharge like it was. No odor noted debrided well for some bleeding. Vital Signs: Vital Signs Temp Pulse Resp BP 97.6 F L 79 16 144/93 H 07/29/21 08:13 07/29/21 08:13 07/22/21 08:15 07/29/21 08:13 Oxygen Delivery Method Room Air Weight: 285 lb Body Mass Index (BMI) 37.5 Lab / Micro Data Attestation: I reviewed the patient's lab results. Physical Exam Const alert and oriented x3 General Appearance: cooperative Exam Limitations: no limitations HEENT normocephalic Head and Scalp: normal to inspection and other Other Details: rash Eyes PERRL General Eye: normal appearance of both eyes Neck full ROM General: normal visual inspection Lymph Lymphatic: no lymphadenopathy noted Chest inspection of chest normal Chest Narrative: rsh over his breasts and axilla upper back and head Chest: symmetrical chest wall rise Breast/Axilla Inspection: abnormal inspection of the axilla Resp normal respiratory effort Effort and Inspection: able to speak in complete sentences Auscultation: clear to auscultation bilaterally Cardio regular rate Jugular Venous Distention: Negative for JVD Palpation: normal PMI Rate: regular rate Rhythm: regular rhythm GI normal to inspection, nondistended, normoactive bowel sounds Back/Spine Lumbar Spine / Lower Back: Negative for normal to inspection Extremity normal to inspection Skin No no rashes or lesions noted and No no wounds General Skin Exam: dry skin, erythema, dermatitis and other hives Wounds: wounds noted Wound Narrative: surgical non-healing lumbar wound Neuro oriented x3 Psych Appearance: grossly normal Attitude: calm Activity / Motor Behavior: appropriate eye contact Speech: normal speech Attention / Concentration: attention grossly intact Memory / Cognition: memory grossly intact Judgement: judgement good Debridement Note Debridement Note Wound debrided: Lower back dehisced wound Type of Debridement: Excisional debridement Depth: Down to and including healthy tissue Percentage of wound debrided: 100 Instrument Used: 5mm curette Tissue Removed: Fibrin Severity: Limited To Skin Breakdown Amount of bleeding with debridement: Mild Bleeding Controlled with: Compression and gauze Patient tolerated procedure: Patient tolerated procedure well Post-Debridement Measurements and Additional Note: Post-Debridement Measurements/Treatment WC - Nurse 1 - General Ulcer Assessment Start: 07/07/21 09:03 Freq: Status: Active Protocol: WC.LOWEXT Activity Type Activity Date Activity User E-Sign Co-Sign Detail Recorded Client Recorded Date Recorded By Document 07/07/21 09:04 BMF [id number] 07/07/21 09:06 BMF Document 07/08/21 09:32 KR [id number] 07/08/21 09:36 KR Document 07/15/21 08:10 KR [id number] 07/15/21 08:13 KR Document 07/17/21 08:49 RB [id number] 07/17/21 08:51 RB Document 07/22/21 08:15 KR [id number] 07/22/21 08:18 KR Document 07/29/21 08:13 AK [id number] 07/29/21 08:17 AK 07/07/21 07/08/21 07/15/21 09:04 09:32 08:10 WC - Today's Visit Information Type of service Nurse-only Follow-up Visit Follow-up Visit Visit (Physician/HOSPITAL CLINIC ASSISTANT (Physician/HOSPITAL CLINIC ASSISTANT ) ) Arrival Mode Ambulatory Ambulatory Ambulatory Transfer Assistance None Patient Identification Verified (Name & Yes Yes Yes ) Patient Requires Transmission-Based No Precautions Safety Precautions Height and Weight Body Mass Index (BMI) 37.5 37.5 37.5 BMI Classification Obese Obese Obese Vital Signs Temperature (97.8 F-99.1 F) 96.7 F L 96.7 F L 97.6 F L Temperature Source Temporal Temporal Temporal Pulse Rate (60-100) 103 H 85 67 Pulse Location Monitor Monitor Monitor Respiratory Rate (12-18) 16 Respiratory rate source Observation Oxygen Delivery Method Room Air Blood Pressure (90/60-120/80) 129/84 H 126/74 H 127/73 H Blood Pressure Mean (mm Hg) 99 91 91 Source Monitor Monitor Monitor Position Sitting Semi-Fowlers Sitting Blood Pressure Location Left Arm Left Arm Right Arm History Since Last Visit- (Skip if this is Patient's initial visit) Have you changed medications since your No No No last visit? Any new allergies or adverse reactions No No No Had a fall/change in ADL's that may No No No increase risk of falls Signs or symptoms of abuse and/or No No No neglect since last visit Have you been in the hospital since your Yes No No last visit? Has dressing in place as prescribed No Yes Yes Has compression in place as prescribed N/A N/A N/A Has offloadiing in place as prescribed N/A N/A N/A Experienced any changes in pain level or No No No management Left Footwear Regular Shoe Regular Shoe Regular Shoe Right Footwear Regular Shoe Regular Shoe Regular Shoe Pain Scale: 0-10 Numeric Is Patient Pain Free? Yes Yes Yes 07/17/21 07/22/21 07/29/21 08:49 08:15 08:13 WC - Today's Visit Information Type of service Nurse-only Follow-up Visit Follow-up Visit Visit (Physician/HOSPITAL CLINIC ASSISTANT (Physician/HOSPITAL CLINIC ASSISTANT ) ) Arrival Mode Ambulatory Ambulatory Ambulatory Transfer Assistance None None Patient Identification Verified (Name & Yes Yes No ) Patient Requires Transmission-Based No No No Precautions Safety Precautions NA Height and Weight Body Mass Index (BMI) 37.5 37.5 37.5 BMI Classification Obese Obese Obese Vital Signs Temperature (97.8 F-99.1 F) 98 F 96.4 F L 97.6 F L Temperature Source Temporal Temporal Temporal Pulse Rate (60-100) 78 82 79 Pulse Location Monitor Monitor Monitor Respiratory Rate (12-18) 18 16 Respiratory rate source Observation Observation Oxygen Delivery Method Room Air Blood Pressure (90/60-120/80) 126/81 H 134/94 H 144/93 H Blood Pressure Mean (mm Hg) 96 107 110 Source Monitor Monitor Monitor Position Sitting Supine Blood Pressure Location Left Arm History Since Last Visit- (Skip if this is Patient's initial visit) Have you changed medications since your No No No last visit? Any new allergies or adverse reactions No No No Had a fall/change in ADL's that may No No No increase risk of falls Signs or symptoms of abuse and/or No No No neglect since last visit Have you been in the hospital since your No No No last visit? Has dressing in place as prescribed Yes Yes Yes Has compression in place as prescribed No N/A No Has offloadiing in place as prescribed No N/A N/A Experienced any changes in pain level or No No No management Left Footwear Regular Shoe Right Footwear Regular Shoe Pain Scale: 0-10 Numeric Is Patient Pain Free? Yes Yes - Nurse 1 - General Ulcer Measurement Start: 07/07/21 09:03 Freq: Status: Active Protocol: Activity Type Activity Date Activity User E-Sign Co-Sign Detail Recorded Client Recorded Date Recorded By Document 07/08/21 09:32 KR [id number] 07/08/21 09:36 KR Document 07/15/21 08:10 KR [id number] 07/15/21 08:13 KR Document 07/17/21 08:49 RB [id number] 07/17/21 08:51 RB Document 07/22/21 08:15 KR [id number] 07/22/21 08:18 KR Document 07/29/21 08:13 AK [id number] 07/29/21 08:17 AK 07/08/21 07/15/21 07/17/21 09:32 08:10 08:49 Wound Center Nurse 1 #1- POST OP LUMBAR -Combined with other wound -Current Size (cm) - Length 6.5 4.6 -Current Size (cm) - Width 1.5 1.8 -Current Size (cm) - Depth 1.5 0.7 -Total Square Cm 9.75 8.28 -Photo Taken -Epithelialization -Tunneling No -Tunneling Position (O'clock) 12 -Tunneling Distance (cm) 3.7 -Tunneling Position #2 (O'clock) 6 -Tunneling Distance #2 (cm) 2.6 -Undermining/Tunneling No -Circular Undermining No -Exudate Amt Medium Medium -Exudate Type Serosanguineous Serosanguineous -Wound Margin Distinct, Distinct, Distinct, Outline Outline Outline Attached Attached Attached -Granulation Amt Large (67-100%) Medium (34-66%) Medium (34-66%) -Granulation Quality Red Red [place],Red -Slough/Fibrin Yes -Necrosis Amt Small (1-33%) Medium (34-66%) Small (1-33%) -Necrotic Tissue Type Adherent Slough Adherent Slough Adherent Slough -Structure Exposed N/A -Texture (Chiquita-wound Skin Appearance) Assessed, Assessed, Assessed, Scarring Scarring Scarring -Moisture (Chiquita-wound Skin Appearance) Assessed, Assessed, Assessed Maceration,Dry/ Maceration Scaly -Color (Chiquita-wound Skin Appearance) No Abnormality, No Abnormality, Assessed Assessed Assessed -Temperature (Chiquita-wound Skin No Abnormality No Abnormality No Abnormality Appearance) (Pt Warm) (Pt Warm) (Pt Warm) -Tenderness on Palpation (Chiquita-wound No No No Skin Appearance) -Ulcer Cleansing Rinsed/ Rinsed/ Wound Cleanser Irrigated with Irrigated with Saline Saline -Foul Odor after Cleansing No No No -Anesthetic Used 4% Lidocaine 4% Lidocaine Solution Solution 07/22/21 07/29/21 08:15 08:13 Wound Center Nurse 1 #1- POST OP LUMBAR -Combined with other wound No No -Current Size (cm) - Length 4 3 -Current Size (cm) - Width 1.5 0.2 -Current Size (cm) - Depth 0.5 0.2 -Total Square Cm 6.0 0.6 -Photo Taken No No -Epithelialization Small 1-33% None Present -Tunneling No No -Tunneling Position (O'clock) -Tunneling Distance (cm) -Tunneling Position #2 (O'clock) -Tunneling Distance #2 (cm) -Undermining/Tunneling No No -Circular Undermining No No -Exudate Amt Medium Small -Exudate Type Serosanguineous Serous -Wound Margin Distinct, Distinct, Outline Outline Attached Attached -Granulation Amt Large (67-100%) Medium (34-66%) -Granulation Quality [place] -Slough/Fibrin Yes No -Necrosis Amt Small (1-33%) None Present (0 %) -Necrotic Tissue Type Adherent Slough -Structure Exposed N/A -Texture (Chiquita-wound Skin Appearance) Assessed, No Abnormality, Scarring Assessed -Moisture (Chiquita-wound Skin Appearance) Assessed, No Abnormality, Maceration Assessed -Color (Chiquita-wound Skin Appearance) Assessed,Palor No Abnormality, Assessed -Temperature (Chiquita-wound Skin No Abnormality No Abnormality Appearance) (Pt Warm) (Pt Warm) -Tenderness on Palpation (Chiquita-wound No No Skin Appearance) -Ulcer Cleansing Rinsed/ Soap and Water Irrigated with Saline -Foul Odor after Cleansing No No -Anesthetic Used 5% Lidocaine 5% Lidocaine Gel Gel WC - Nurse 2 - General Ulcer CM Notes Start: 07/07/21 09:03 Freq: Status: Active Protocol: Activity Type Activity Date Activity User E-Sign Co-Sign Detail Recorded Client Recorded Date Recorded By Document 07/08/21 09:58 MW [id number] 07/08/21 10:07 MW Document 07/15/21 08:20 MW [id number] 07/15/21 08:39 MW Document 07/22/21 08:28 MW [id number] 07/22/21 08:30 MW Document 07/29/21 08:34 MW [id number] 07/29/21 08:43 MW 07/08/21 07/15/21 07/22/21 09:58 08:20 08:28 Wound Center Nurse 2 #1- POST OP LUMBAR -Time 09:58 08:20 08:28 -Correct Patient Yes Yes Yes -Correct Side, Site, Position Yes Yes Yes -Correct Procedure Yes Yes Yes -Procedure Performed Yes Yes Yes -Type of Procedure Debridement Debridement Debridement -Clinical Debridement Subcutaneous Subcutaneous Subcutaneous -Tissue Removed Subcutaneous Subcutaneous Subcutaneous -Post Debridement (cm) - Length 5.0 4.5 3.8 -Post Debridement (cm) - Width 1.2 1.8 1.0 -Post Debridement (cm) - Depth 2.8 2.0 0.6 -Total Square (Post) (cm) 6.00 8.10 3.80 -Area of Debridement (cm) - Length 5.0 4.5 3.8 -Area of Debridement (cm) - Width 1.2 1.8 1.0 -Total Square (Area) (cm) 6.00 8.10 3.80 -Tunneling No No No -Undermining/Tunneling No No No -Circular Undermining No No No -Wound/Ulcer Outcome Not Healed Not Healed Not Healed -Ulcer Cleansing Rinsed/ Rinsed/ Rinsed/ Irrigated with Irrigated with Irrigated with Saline Saline Saline -Foul Odor after Cleansing No No No -Bioengineered Tissue No No No -Bleeding Controlled with Pressure Pressure Pressure -Offloading No No No -Treatment Response Procedure Procedure Procedure Tolerated Well Tolerated Well Tolerated Well -Debridement - Subq, 1st 20sq cm Yes Yes Yes Pain Scale: 0-10 Numeric Is Patient Pain Free? Yes Yes Yes 07/29/21 08:34 Wound Center Nurse 2 #1- POST OP LUMBAR -Time 08:35 -Correct Patient Yes -Correct Side, Site, Position Yes -Correct Procedure Yes -Procedure Performed Yes -Type of Procedure Debridement -Clinical Debridement Subcutaneous -Tissue Removed Subcutaneous -Post Debridement (cm) - Length 2.7 -Post Debridement (cm) - Width 0.4 -Post Debridement (cm) - Depth 0.3 -Total Square (Post) (cm) 1.08 -Area of Debridement (cm) - Length 2.7 -Area of Debridement (cm) - Width 0.4 -Total Square (Area) (cm) 1.08 -Tunneling No -Undermining/Tunneling No -Circular Undermining No -Wound/Ulcer Outcome Not Healed -Ulcer Cleansing Rinsed/ Irrigated with Saline -Foul Odor after Cleansing No -Bioengineered Tissue No -Bleeding Controlled with Pressure -Offloading No -Treatment Response Procedure Tolerated Well -Debridement - Subq, 1st 20sq cm Yes Pain Scale: 0-10 Numeric Is Patient Pain Free? Yes WC - Nurse 3 - General Ulcer D/C NN Start: 07/07/21 09:03 Freq: Status: Active Protocol: Activity Type Activity Date Activity User E-Sign Co-Sign Detail Recorded Client Recorded Date Recorded By Document 07/07/21 09:04 [facility] [id number] 07/07/21 09:06 [facility] Document 07/08/21 11:09 MT [id number] 07/08/21 11:10 MT Document 07/15/21 08:47 AK [id number] 07/15/21 08:48 AK Document 07/17/21 08:49 RB [id number] 07/17/21 08:51 RB Document 07/22/21 08:51 AK [id number] 07/22/21 08:52 AK Document 07/29/21 08:48 AK [id number] 07/29/21 08:49 AK 07/07/21 07/08/21 07/15/21 09:04 11:09 08:47 Vital Signs Temperature (97.8 F-99.1 F) 96.7 F L Temperature Source Temporal Pulse Rate (60-100) 103 H Pulse Location Monitor Respiratory Rate (12-18) 16 Respiratory rate source Observation Oxygen Delivery Method Room Air Blood Pressure (90/60-120/80) 129/84 H Blood Pressure Mean (mm Hg) 99 Source Monitor Position Sitting Blood Pressure Location Left Arm Pain Scale: 0-10 Numeric Is Patient Pain Free? Yes Wound Care Nurse 3 #1- POST OP LUMBAR -Ulcer Cleansing soapy water Wound Cleanser Rinsed/ Irrigated with Saline -Foul Odor after Cleansing No No -Negative Pressure Wound Therapy Start N/A -Setting (mmHg) 125 -Negative Pressure is Continuous -Primary Dressing Applied Other Aquacel Extra -Other Dressing moist to dry -Primary Dressing Covered/Secured with Other Dry Gauze & Dry Gauze & Roll Gauze, Roll Gauze, Secured with Secured with Tape Tape -Other Covering super absorber, secured w/ drape -NPWT Application Charge NPWT </= 50 sq cm (disp) ($) -Aquacel Extra 1 -Promogran Chiquita-Wound Care Treatment Response Procedure Tolerated Well WC - Visit Discharge Discharge Condition Stable Stable Stable Ambulatory Status Ambulatory Ambulatory Ambulatory Transportation [employer] Medication Reconcilliation completed & No No provided to patient/care provider Clinical Summary of Care Provided Yes Yes Notes: call if having seal problems 07/17/21 07/22/21 07/29/21 08:49 08:51 08:48 Vital Signs Temperature (97.8 F-99.1 F) 98 F Temperature Source Temporal Pulse Rate (60-100) 78 Pulse Location Monitor Respiratory Rate (12-18) 18 Respiratory rate source Observation Oxygen Delivery Method Blood Pressure (90/60-120/80) 126/81 H Blood Pressure Mean (mm Hg) 96 Source Monitor Position Sitting Blood Pressure Location Left Arm Pain Scale: 0-10 Numeric Is Patient Pain Free? Yes Wound Care Nurse 3 #1- POST OP LUMBAR -Ulcer Cleansing Wound Cleanser Rinsed/ Rinsed/ Irrigated with Irrigated with Saline Saline -Foul Odor after Cleansing No No -Negative Pressure Wound Therapy Start Continue -Setting (mmHg) 125 150 -Negative Pressure is Continuous Continuous -Primary Dressing Applied Promogran -Other Dressing -Primary Dressing Covered/Secured with Secured with Tape -Other Covering -NPWT Application Charge NPWT </= 50 sq NPWT > 50 sq cm cm ($) ($) -Aquacel Extra -Promogran 2 [place]iquita-Wound Care Barrier Treatment Response Procedure Tolerated Well WC - Visit Discharge Discharge Condition Stable Stable Stable Ambulatory Status Ambulatory Ambulatory Ambulatory Transportation [facility] Medication Reconcilliation completed & No Yes No provided to patient/care provider Clinical Summary of Care Provided Yes Yes Yes Notes: Assessment/Plan Assessment/Plan (1) Surgical wound dehiscence: CODE(S): T81.31XA - Disruption of external operation (surgical) wound, not elsewhere classified, initial encounter QUALIFIERS: Encounter type: initial encounter Qualified Code(s): T81.31XA - Disruption of external operation (surgical) wound, not elsewhere classified, initial encounter PLAN: Hold Wound VAC at 150 mmHg reapply twice weekly or once weekly depending on patient's tolerance. Start Promogran packing to wound base moistened with Adaptic gauze dressing. Cultures obtained Will call with culture results if positive otherwise Follow-up in 1 week (2) Delayed surgical wound healing: CODE(S): T81.89XA - Other complications of procedures, not elsewhere classified, initial encounter QUALIFIERS: Encounter type: initial encounter Qualified Code(s): T81.89XA - Other complications of procedures, not elsewhere classified, initial encounter (3) Obesity (BMI 30-39.9): CODE(S): E66.9 - Obesity, unspecified (4) Tobacco abuse: CODE(S): Z72.0 - Tobacco use
== END 2021-07-30 23:59 ==
LOC: WC 08:15
PROVIDERS: PCP Registered Nurse; Visit Provider Surgery
DX: T81.31XA Disruption of external operation (surgical) wound, not elsewhere classified, initial encounter (principal); T81.89XA Other complications of procedures, not elsewhere classified, initial encounter; E66.9 Obesity, unspecified; Z68.30 Body mass index [BMI] 30.0-30.9, adult; G47.33 Obstructive sleep apnea (adult) (pediatric); M19.90 Unspecified osteoarthritis, unspecified site; F17.210 Nicotine dependence, cigarettes, uncomplicated; E11.69 Type 2 diabetes mellitus with other specified complication; N52.9 Male erectile dysfunction, unspecified; Z79.4 Long term (current) use of insulin; G90.2 Horner's syndrome; Z98.84 Bariatric surgery status; L50.9 Urticaria, unspecified
CPT/HCPCS: 11042; 87070; 87075; 87077; 87186; 87205; 97605; 97606; 97607; 99212; G0463

== ENCOUNTER 2021-08-05 08:15 | Outpatient (RCR) | payer BC, SELFPAY ==
[2021-08-05 08:20] VITALS: BP 134/92; PULSE 76; TEMP 36.2
--- NOTE | 2021-08-05 08:41 | PCM.WC.PN ---
History of Present Illness Date of Service: 08/05/21 Chief Complaint: Dehiscent surgical incision, lumbar region, status-post laminotomy and discectomy History of Wound: This is a 50-year-old male who initially underwent a laminotomy and discectomy at the L5-S1 level on May 12, [address] Marcellus Brown.. He developed drainage and delayed healing at the site, and underwent wound exploration with irrigation and debridement on June 09, 2021. A second exploratory procedure was performed on June 16, 2021, at which time he underwent exploration of the wound with debridement. At the time of his most recent procedure, on June 16, 2021, a negative pressure device was applied, and the patient has been referred to the [facility] for ongoing management and oversight. The patient was admitted for short stay at [facility] approximately 1 week ago, at which time he was evaluated by the Infectious Disease service, Dr. Yanick Cain, and placed on doxycycline 100 mg p.o. twice daily for 10 days. A Staph aureus had been isolated from the patient's dehiscent surgical wound. At the time of the patient's initial presentation, his negative pressure device was seen to be rather full with a serosanguineous fluid. Patient's pre-existing medical problems include obesity, tobacco abuse, erectile dysfunction, obstructive sleep apnea, diabetes mellitus, and Fabienne's syndrome of the left face. Progress of Wound: Wound today is closed and well-healed Subjective Subjective Patient has no complaints is very happy Objective Data Objective Data Took a week off from the wound VAC has been using Promogran which healed the wound patient will be discharged today he can just wear dry dressing for the week. Has already been seen by a surgeon he was very happy with the results. Vital Signs: Vital Signs Temp Pulse BP 97.1 F L 76 134/92 H 08/05/21 08:20 08/05/21 08:20 08/05/21 08:20 Physical Exam Const alert and oriented x3 General Appearance: cooperative Exam Limitations: no limitations HEENT normocephalic Head and Scalp: normal to inspection and other Other Details: rash Eyes PERRL General Eye: normal appearance of both eyes Neck full ROM General: normal visual inspection Lymph Lymphatic: no lymphadenopathy noted Chest inspection of chest normal Chest Narrative: rsh over his breasts and axilla upper back and head Chest: symmetrical chest wall rise Breast/Axilla Inspection: abnormal inspection of the axilla Resp normal respiratory effort Effort and Inspection: able to speak in complete sentences Auscultation: clear to auscultation bilaterally Cardio regular rate Jugular Venous Distention: Negative for JVD Palpation: normal PMI Rate: regular rate Rhythm: regular rhythm GI normal to inspection, nondistended, normoactive bowel sounds Back/Spine Lumbar Spine / Lower Back: Negative for normal to inspection Extremity normal to inspection Skin No no rashes or lesions noted and No no wounds General Skin Exam: dry skin, erythema, dermatitis and other hives Wounds: wounds noted Wound Narrative: surgical non-healing lumbar wound Neuro oriented x3 Psych Appearance: grossly normal Attitude: calm Activity / Motor Behavior: appropriate eye contact Speech: normal speech Attention / Concentration: attention grossly intact Memory / Cognition: memory grossly intact Judgement: judgement good Debridement Note Debridement Note Wound debrided: Lower back surgical wound dehisced No debridement was completed: No debridement was completed today Post-Debridement Measurements and Additional Note: Post-Debridement Measurements/Treatment - Nurse 1 - General Ulcer Assessment Start: 08/05/21 08:19 Freq: Status: Active Protocol: RISHI.CHAUT Activity Type Activity Date Activity User E-Sign Co-Sign Detail Recorded Client Recorded Date Recorded By Document 08/05/21 08:20 JULISA [id number] 08/05/21 08:21 JULISA 08/05/21 08:20 - Today's Visit Information Type of service Follow-up Visit (Physician/SUPERVISOR PUBLICATIONS ) Arrival Mode Ambulatory Patient Identification Verified (Name & Yes ) Patient Requires Transmission-Based No Precautions Safety Precautions NA Vital Signs Temperature (97.8 F-99.1 F) 97.1 F L Temperature Source Temporal Pulse Rate (60-100) 76 Pulse Location Monitor Blood Pressure (90/60-120/80) 134/92 H Blood Pressure Mean (mm Hg) 106 Source Monitor History Since Last Visit- (Skip if this is Patient's initial visit) Have you changed medications since your No last visit? Any new allergies or adverse reactions No Had a fall/change in ADL's that may No increase risk of falls Signs or symptoms of abuse and/or No neglect since last visit Have you been in the hospital since your No last visit? Has dressing in place as prescribed Yes Has compression in place as prescribed N/A Has offloadiing in place as prescribed N/A Experienced any changes in pain level or No management Left Footwear Regular Shoe Right Footwear Regular Shoe - Nurse 1 - General Ulcer Measurement Start: 08/05/21 08:19 Freq: Status: Active Protocol: Activity Type Activity Date Activity User E-Sign Co-Sign Detail Recorded Client Recorded Date Recorded By Document 08/05/21 08:20 AK [id number] 08/05/21 08:21 AK 08/05/21 08:20 Wound Center Nurse 1 #1- POST OP LUMBAR -Combined with other wound No -Current Size (cm) - Length 0.1 -Current Size (cm) - Width 0.1 -Current Size (cm) - Depth 0.1 -Total Square Cm 0.01 -Photo Taken No -Epithelialization None Present -Tunneling No -Undermining/Tunneling No -Circular Undermining No -Change in Wound Grade/Stage No -Exudate Amt None Present -Slough/Fibrin No -Necrosis Amt None Present (0 %) -Structure Exposed N/A -Texture (Chiquita-wound Skin Appearance) No Abnormality, Assessed -Moisture (Chiquita-wound Skin Appearance) No Abnormality, Assessed -Color (Chiquita-wound Skin Appearance) No Abnormality, Assessed -Temperature (Chiquita-wound Skin No Abnormality Appearance) (Pt Warm) -Tenderness on Palpation (Chiquita-wound No Skin Appearance) -Ulcer Cleansing Rinsed/ Irrigated with Saline -Anesthetic Used 5% Lidocaine Gel WC - Nurse 2 - General Ulcer CM Notes Start: 08/05/21 08:19 Freq: Status: Active Protocol: Activity Type Activity Date Activity User E-Sign Co-Sign Detail Recorded Client Recorded Date Recorded By Document 08/05/21 08:31 MW [id number] 08/05/21 08:34 MW 08/05/21 08:31 Wound Center Nurse 2 -Time 08:31 -Correct Patient Yes -Correct Side, Site, Position Yes -Correct Procedure Yes -Procedure Performed No -Post Debridement (cm) - Length 0 -Post Debridement (cm) - Width 0 -Post Debridement (cm) - Depth 0 -Total Square (Post) (cm) 0 -Wound/Ulcer Outcome Healed- Epithelialized Pain Scale: 0-10 Numeric Is Patient Pain Free? 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 PLAN: Wound is resolved and healed patient can wear dry dressing for the next week follow-up as needed discharged from the wound center (2) Diabetes mellitus: CODE(S): E11.9 - Type 2 diabetes mellitus without complications QUALIFIERS: Diabetes mellitus type: type 2 Diabetes mellitus long filler cigar roller machine insulin use: without long filler cigar roller machine use Diabetes mellitus complication status: without complication Qualified Code(s): E11.9 - Type 2 diabetes mellitus without complications (3) Tobacco abuse: CODE(S): Z72.0 - Tobacco use (4) Obesity (BMI 30-39.9): CODE(S): E66.9 - Obesity, unspecified (5) Surgical wound dehiscence: CODE(S): T81.31XA - Disruption of external operation (surgical) wound, not elsewhere classified, initial encounter QUALIFIERS: Encounter type: initial encounter Qualified Code(s): T81.31XA - Disruption of external operation (surgical) wound, not elsewhere classified, initial encounter
== END 2021-08-05 08:42 | disposition home or self-care (01) ==
LOC: WC 08:15
PROVIDERS: PCP Registered Nurse; Visit Provider Nurse Practitioner
DX: L98.422 Non-pressure chronic ulcer of back with fat layer exposed (principal); E66.9 Obesity, unspecified; T81.31XA Disruption of external operation (surgical) wound, not elsewhere classified, initial encounter; Z72.0 Tobacco use; G47.33 Obstructive sleep apnea (adult) (pediatric); N52.9 Male erectile dysfunction, unspecified; Z68.30 Body mass index [BMI] 30.0-30.9, adult; Z79.4 Long term (current) use of insulin; E11.69 Type 2 diabetes mellitus with other specified complication
CPT/HCPCS: 99213; G0463

== ENCOUNTER → 2021-09-02 09:59 | Outpatient (CLI) | payer BC, SELFPAY ==
--- NOTE | 2021-09-02 10:19 | EKG12_ITS ---
Test Reason : PREOP Blood Pressure : / mmHG Vent. Rate : 081 BPM Atrial Rate : 081 BPM P-R Int : 162 ms QRS Dur : 090 ms QT Int : 356 ms P-R-T Axes : 025 -46 027 degrees QTc Int : 413 ms Normal sinus rhythm Left axis deviation Poor R wave progression Abnormal ECG Confirmed by JILL MONSIVAIS, PATRICIA ([id number]), editor map SHADE BRADLEY ([id number]) on 09/03/2021 9:01:19 AM Referred By: Jack Arechiga Confirmed By:PATRICIA MELCHOR MD
--- NOTE | 2021-09-02 10:20 | RAD_ITS ---
STUDY: X-RAY CHEST REASON FOR EXAM: Male, 51 years old. PRE OP TECHNIQUE: PA and lateral views of the chest. COMPARISON: Comparison is made with prior study from 01/14/2021. FINDINGS: Hyperinflation. The lungs are clear. There is no demonstrated pleural abnormality. Normal size heart. Normal mediastinum and issac. Normal visualized pulmonary arteries. There is atherosclerotic tortuosity of the aortic arch and descending thoracic aorta. There are mild degenerative changes of the visualized thoracic spine. Normal visualized ribs, clavicles, and shoulders. There is no demonstrated abnormality of the visualized soft tissue structures of the upper abdomen. RAD/Chest PA and Lateral IMPRESSION: No acute abnormality is seen. Electronically Signed: Vikash Krishnan MD at 12:59 EDT , Service support ,
[2021-09-02 10:45] LABS: Hematocrit 44.6 % (40-54); Hemoglobin 14.7 g/dL (13.0-16.5); Mean Corpuscular Hgb 28.5 pg (27.0-32.0); Mean Corpuscular Volume 86.6 fL (80-94); Mean Platelet Vol. 10.2 fl (6.2-12.0); Platelet Count 227 K/mm3 (150-450); RBC Distribution Width SD 47.8 fl (35.1-43.9); Red Blood Count 5.15 M/mm3 (4.6-6.2); White Blood Count 7.9 K/mm3 (4.4-11.0)
[2021-09-02 11:01] LABS: Anion Gap 6 (5-15); BUN 9 mg/dL (7-18); Calcium,Total 9.4 mg/dL (8.5-10.1); Chloride 104 mmol/L (98-107); EST Glomerular Filtration Rate 94 mL/min (>60); Est Glom Filt Rate - Afr Amer 114 mL/min (>60); Glucose 109 mg/dL (74-106); Hemoglobin A1c 8.3 % (3.8-5.6); Potassium 3.9 mmol/L (3.5-5.1); Sodium Level 134 mmol/L (136-145)
== END ==
PROVIDERS: PCP Registered Nurse; Referring Provider Student in an Organized Health Care Education/Training Program; Visit Provider Student in an Organized Health Care Education/Training Program
DX: Z01.818 Encounter for other preprocedural examination (principal)
CPT/HCPCS: 36415; 71046; 80048; 83036; 85027; 93005

== ENCOUNTER 2023-05-23 07:37 | Inpatient (IN) | payer MEDICAID, SELFPAY ==
[2023-05-23] VITALS (26 sets, daily range): BP systolic 88–150; BP diastolic 66–119; PULSE 61–737; RESP 14–26; TEMP 35.8–37.1; O2SAT 92–100; BMI 36.1; BMI 36.2
--- NOTE | 2023-05-23 07:55 | RAD_ITS ---
EXAM: XR CHEST, 1 VIEW CLINICAL INDICATION: ETT/OG PLACEMENT TECHNIQUE: Frontal view of the chest. COMPARISON: 09/02/2021. FINDINGS: LUNGS AND PLEURAL SPACES: Pulmonary hypoinflation. Radiopaque patches the chest obscure portions of the lungs. No pneumothorax. No effusion. No obvious infiltrates. HEART: Unremarkable. Cardiac silhouette not enlarged. MEDIASTINUM: Central airways and mediastinal contour are unremarkable. BONES/JOINTS: Unremarkable. SOFT TISSUES: Unremarkable. TUBES, LINES AND DEVICES: ET tube tip is 4 cm above the michael. OG tube courses down the abdomen and the tip is not included. Radiopaque catheter underneath the left hemidiaphragm may be peritoneal catheter. This is unchanged. RAD/Chest 1 View (Portable) IMPRESSION: 1. Limited study due to radiopaque patches obscuring portions of the lungs. 2. No suspicious acute chest abnormality. 3. Satisfactory placement of ET tube and OG tube. Electronically Signed: Chau Terry MD at 9:06 EDT ,
--- NOTE | 2023-05-23 07:55 | ED.RN ---
0735 PT ARRIVES VIA EMS. DR. KANG, R HELLEN, Sara SANCHEZ, RESPIRATORY, Ted LERMA. 150/119,101 HR,98% 25 PT STATES HE CANNOT BREATH. 0742- 20 OF ETOMIDATE GIVEN 0745 100 OR SHRUTHI 0748- DR. KANG INTUBATES 25CM @ LIP 7.5 0750- OG PLACED 16G. AND TEMP MACHADO INSERTED 172/108,118HR, 98% 0751 PROP- STARTED AT 7.4 MG/KG [employer]NASI[employer] TEACHER STAFF. HERE, PT. TAKEN TO GYMNASIUM TEACHER.
--- NOTE | 2023-05-23 07:59 | ED.VIS.CHEST ---
HPI History of Present Illness Chief Complaint: Chest Pain Informant: patient and EMS Narrative Narrative: Patient is a 52-year-old male with history of tobacco use, obesity, diabetes mellitus, prior surgical wounds to the abdomen presenting with sudden onset of chest pain. Per EMS report patient was awake when he suddenly had chest pain that he points to the left of his chest. He states it radiates down his left arm and into his back. He also feels short of breath now. Per EMS patient had 2 episodes of unresponsiveness however he maintained a pulse throughout and there would resolve on its own. Patient received 2 doses of nitro with no relief of the pain. He also received IV Zofran and full dose aspirin in route. Patient did have an episode of ventricular fibrillation that was defibrillated x1 per EMS. Squad EKG interpreted as anterior STEMI and STEMI alert called in the field. [facility] Medical History Arthritis Back pain CPAP (continuous positive airway pressure) dependence Diabetes Diabetes mellitus History of steroid therapy Fabienne's syndrome Injury of back Injury of head and neck Kidney stones Obesity (BMI 30-39.9) IZAIAH (obstructive sleep apnea) Sleep apnea Smoker Surgical wound dehiscence Tobacco abuse Tobacco abuse counseling Urinary incontinence Wears dentures Home Medications metformin 500 mg tablet,extended release 24 hr 1,000 mg PO BID 11/01/19 [History Last Taken 11/05/19 05:30] dulaglutide 1.5 mg/0.5 mL subcutaneous pen injector (Trulicity) 1.5 mg SQ QWEEK 11/26/20 [History Last Taken 06/01/21] cyclobenzaprine 10 mg tablet 10 mg PO BID PRN MUSCLE SPASMS 01/14/21 [History Last Taken Unknown] atorvastatin 40 mg tablet 40 mg PO DAILY 06/08/21 [History Last Taken Unknown] escitalopram oxalate 20 mg tablet (Lexapro) 20 mg PO DAILY 06/08/21 [History Last Taken Unknown] gabapentin 400 mg capsule 400 mg PO TID 06/08/21 [History Last Taken 06/09/21] oxycodone-acetaminophen 5 mg-325 mg tablet 1 - 2 tab PO Q6H PRN PRN Pain 06/08/21 [History Last Taken Unknown] doxycycline monohydrate 100 mg capsule 100 mg PO BID #20 caps 06/17/21 [Rx Last Taken Unknown] Allergy/AdvReac Type Severity Reaction Status Date / Time coconut Allergy Swelling Verified 07/06/21 11:14 Sulfa (Sulfonamide Allergy Swelling Verified 07/06/21 11:14 Antibiotics) Surgical History History of incision and drainage Hx of abdominal surgery Hx of anterior cruciate ligament surgery Hx of arthroscopic knee surgery Hx of carpal tunnel repair Hx of colonoscopy Hx of decompressive lumbar laminectomy Hx of elbow surgery Hx of laparoscopic gastric banding Hx of neck surgery Hx of rotator cuff surgery Social History Smoking Status: Current every day smoker tobacco type: cigarettes substance use type: does not use ROS ROS ED Cardiovascular Cardiovascular: Reports chest pain Respiratory/Chest Respiratory/Chest: Reports cough and dyspnea Musculoskeletal Musculoskeletal: Reports back pain Neurologic Neurologic: Reports paresthesias LUE EXAM Physical Exam Const Vital Signs: 05/23/23 07:38 05/23/23 07:41 05/23/23 07:44 Temperature 97.8 F Temperature Source Temporal Pulse Rate 104 H Respiratory Rate 26 H 26 H Respiratory Effort Short of Breath Respiratory Depth Shallow Respiratory Pattern Tachypnea Blood Pressure 150/119 H 150/119 H Blood Pressure Mean 129 Pulse Ox 97 Oxygen Delivery Method Room Air Fraction of Inspired Oxygen (FIO2) 05/23/23 07:58 05/23/23 09:23 Temperature Temperature Source Pulse Rate 93 Respiratory Rate 18 25 H Respiratory Effort Respiratory Depth Respiratory Pattern Normal Normal Blood Pressure Blood Pressure Mean Pulse Ox 100 Oxygen Delivery Method Fraction of Inspired Oxygen (FIO2) 70 100 Positive well nourished and obese Constitutional Narrative: Acute distress, diaphoretic Nutritional Appearance: obese HEENT Reports moist mucous membranes Neck supple and no JVD Chest Wall inspection of chest normal and palpation of chest normal Resp normal respiratory effort Resp Narrative: Diminished breath sounds throughout, coughing up thick sputum Auscultation: Negative for rhonchi or wheezes Cardio regular rate, regular rhythm and no murmurs Peripheral Pulses: pulses 2+ throughout, radial pulses present bilateral 2+ and dorsalis pedis pulses present bilateral 2+ GI GI Narrative: Nondistended, multiple surgical scars on the abdomen. No pulsatile mass appreciated. Extremity normal to inspection General Extremety ED: Negative for edema General Extremity: Negative for edema Neuro oriented x3 and no sensory deficits noted Sensorium / Orientation: awake and alert Motor Exam: Negative for strength abnormal Psych Mood & Affect: anxious Skin Skin Narrative: Diaphoretic MDM MDM MDM Narrative Medical decision making narrative: Patient arrives for acute chest pain. Squad EKG is concerning for STEMI. Repeat EKG since which is interpreted by myself as ST elevation infarct in the anterior and lateral leads with reciprocal changes in the inferior leads. Patient is complaining of acute shortness of breath and has a hard time sitting still or concentrating because of his distress. He does have an episode of symptomatic bradycardia in the ER but does not lose pulses however he does become unresponsive for approximately 5 seconds. Decision made to intubate for airway protection, concerned that he is developing pulmonary edema as well as to tolerate to the cardiac catheterization. Patient is informed of the plan for sedation, intubation and then cardiac catheterization for evaluation of heart attack. He agrees. See procedure note for intubation. Patient has equal pulses and blood pressures and I suspect this is more of ACS and not an acute dissection. Bedside ultrasound performed by myself through the parasternal short axis as well as the subxiphoid view does not show any pericardial effusion. I have not able to evaluate for wall motion abnormality. Postintubation chest x-ray shows appropriate position of ET tube above the level of the michael, appropriate placement of NG tube and what looks to be pulmonary vascular congestion. Patient is transferred to the [facility]. Case was discussed with breaker machine tender, Dr. Lara. Once patient was in the [facility] I did discuss the case with me physician, Dr. Villarreal. Nursing staff did reach out to the patient's siblings who are listed as emergency contact on his phone. Apparently there out of services they are currently on a cruise to [place]. Nursing staff was able to get a hold of the patient's ex-girlfriend who had no other next of kin to contact. Lab Data Labs: Laboratory Results - last 24 hr 05/23/23 07:50 WBC 15.9 H RBC 5.45 Hgb 16.0 Hct 47.1 MCV 86.4 MCH 29.4 MCHC 34.0 RDW Std Deviation 43.5 RDW Coeff of Sunday 13.8 Plt Count 299 MPV 10.6 Immature Gran % (Auto) 0.600 Neut % (Auto) 65.5 Lymph % (Auto) 27.6 [place] % (Auto) 5.2 Eos % (Auto) 0.7 Baso % (Auto) 0.4 Absolute Neuts (auto) 10.4 H Absolute Lymphs (auto) 4.37 Nucleated RBC % 0 PT 12.8 INR 1.0 APTT 27.5 Sodium 130 L Potassium 3.8 Chloride 96 L Carbon Dioxide 26.0 Anion Gap 8 BUN 7 Creatinine 1.02 Estim Creat Clear Calc 93.56 Est GFR (MDRD) Af Amer 98 Est GFR (MDRD) Non-Af 81 BUN/Creatinine Ratio 6.9 L Glucose 322 H Calcium 9.6 Magnesium 2.2 Total Creatine Kinase 70 Troponin I High Sens 9 B-Natriuretic Peptide 11.6 Triglycerides 480 H Radiography Chest X-Ray - ED: 1 View, Read by ED Physician, Read by Radiologist and CHF Diagnostic Testing: Clinical Impression(s) from Imaging Studies Chest X-Ray 05/23/23 07:55 IMPRESSION: 1. Limited study due to radiopaque patches obscuring portions of the lungs. 2. No suspicious acute chest abnormality. 3. Satisfactory placement of ET tube and OG tube. Electronically Signed: Chau Terry MD at 9:06 EDT , Management Discussion w/another healthcare provider: Hospitalist and Pony Edger Procedures Intubations Intubation Method: orotracheal Intubation Verification: Positive color change and Bilateral breath sounds confirmed Intubation Complications: O2 saturation decreased (transient, improved with bagging. Initially looked with direct and did not have a good view of the cords was switched to video laryngoscopy. Had a good visualization of the cords and a stylette needed to be changed. Once appropriate stylette switched first-pass success achieved.) Critical Care Time Critical Care Time: Yes Critical care time (excluding procedures): 30-74 minutes (25), Discussing w/Consultants, Arranging Admission or Transfer and Performing Direct Patient Care at Bedside Discharge Plan Dx/Rx/DC Orders Clinical Impression: Flash pulmonary edema, ST elevation (STEMI) myocardial infarction Disposition Disposition: Acute Care [facility]
[2023-05-23 08:05] LABS: Absolute Lymphocyte Count 4.37 X10^3/uL (0.83-4.51); Absolute Neutrophil Count 10.4 X10^3/uL (2.0-7.7); Basophil# 0.07 X10^3/uL; Basophil% 0.4 % (0-1); Eosinophil# 0.11 X10^3/uL; Eosinophils% 0.7 % (0-5); Hematocrit 47.1 % (40-54); Lymphocyte # 4.37 X10^3/ul (0.83-4.51); Lymphocyte % 27.6 % (19-41); Mean Corpuscular Hgb 29.4 pg (27.0-32.0); Mean Corpuscular Volume 86.4 fL (80-94); Mean Platelet Vol. 10.6 fl (6.2-12.0); Monocyte# 0.82 X10^3/uL; Monocyte% 5.2 % (0-10); NRBC Flagged by Analyzer 0 % (0-5); Neutrophil # 10.38 X10^3/uL (2.7-7.7); Neutrophil % 65.5 % (47-70); Platelet Count 299 K/mm3 (150-450); RBC Distribution Width CV 13.8 % (11.6-14.6); RBC Distribution Width SD 43.5 fl (35.1-43.9); Red Blood Count 5.45 M/mm3 (4.6-6.2); White Blood Count 15.9 K/mm3 (4.4-11.0)
[2023-05-23] MEDS: Rocuronium Bromide 50 MG/5 ML Vial 80 MG IV (08:16)
[2023-05-23] MEDS: Etomidate 20 MG/10 ML Vial IV (08:16)
[2023-05-23] MEDS: Propofol 10MG/Ml 1,000 MG/100 ML Bottle 7.4 MG CONT INF (08:16)
[2023-05-23] MEDS: Heparin Injection (Vial) 5,000 UNIT/ML VIAL 4000 UNIT IV (08:16)
[2023-05-23 08:23] LABS: Anion Gap 8 (5-15); BUN 7 mg/dL (7-18); BUN/Creat Ratio 6.9 RATIO (10-20); Calcium,Total 9.6 mg/dL (8.5-10.1); Chloride 96 mmol/L (98-107); Creatinine, Serum 1.02 mg/dL (0.70-1.30); EST Glomerular Filtration Rate 81 mL/min (>60); Est Glom Filt Rate - Afr Amer 98 mL/min (>60); Estimated Creatinine Clearance 93.56 ml/min; Glucose 322 mg/dL (74-106); Magnesium 2.2 mg/dL (1.6-2.6); Potassium 3.8 mmol/L (3.5-5.1); Sodium Level 130 mmol/L (136-145); Troponin-I HS (w/2H Reflex) 9 pg/mL (3.0-78.0)
[2023-05-23 08:24] LABS: Prothrombin Time (Protime)PT. 12.8 SECONDS (11.7-14.9)
[2023-05-23 08:39] LABS: BNP,B-Type NATRIURETIC PEPTIDE 11.6 pg/mL (0-100)
[2023-05-23] MEDS: EPTIFIBATIDE 75 MG/100 ML VIAL 19.9 MG CONT INF ×4 (08:44→22:42)
[2023-05-23 08:49] LABS: Partial Thromboplast Time 27.5 Seconds (24.1-36.2)
[2023-05-23 09:41] LABS: CPK Total, Creatine Kinase 70 U/L (39-308); Triglycerides 480 mg/dL
[2023-05-23] MEDS: fentaNYL drip 100 ML 5 MCG CONT INF (09:45)
[2023-05-23 10:00] LABS: Reflex Troponin-HS? (from REC) Y
--- NOTE | 2023-05-23 10:00 | EKG12_ITS ---
Test Reason : POST PCI Blood Pressure : / mmHG Vent. Rate : 097 BPM Atrial Rate : 097 BPM P-R Int : 170 ms QRS Dur : 094 ms QT Int : 356 ms P-R-T Axes : 047 -63 044 degrees QTc Int : 452 ms Normal sinus rhythm Low voltage QRS Left anterior fascicular block Abnormal ECG When compared with ECG of 02-SEP-2021 10:35, No significant change was found Confirmed by LESTER MONSIVAIS, ERICKA ([id number]), editorial manager SHADE BRADLEY ([id number]) on 05/25/2023 9:36:03 AM Referred By: Adam Lara Confirmed By:ERICKA BATISTA MD
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
[2023-05-23 10:06] LABS: Allen Test Positive; Base Excess -5 mmol/L (-2 to +2); Bicarbonate 22.3 mmol/L (22-26); Blood Gas Specimen Type ART; FI02 100; Mode AC; O2 Delivery Device Adult Vent; PEEP 5; PO2 167 mmHG (75-100); RR 14; SITE L Radial; SO2 99 % (95-99); Total Carbon Dioxide 24 mmol/L; Vt 450; pCO2 53.9 mmHg (35-45); pH 7.22 (7.35-7.45)
[2023-05-23] MEDS: Amiodarone 360 MG in Dextrose 5% Viaflo Bag 192.8 ML 33.3 MG CONT INF (10:15)
[2023-05-23] MEDS: Propofol 10MG/Ml 1,000 MG/100 ML Bottle 37.2 MG CONT INF ×2 (10:41→13:23)
--- NOTE | 2023-05-23 10:46 | ECHOCS_ITS ---
Reason For Study: STEMI Procedure This was a 2D Doppler, Color Flow transthoracic echocardiogram. The study was technically difficult. Contrast injection was performed. Exam performed portable in ICU/CCU. Left Ventricle Normal LV size. Moderately severe segmental systolic dysfunction (see wall motion). The estimated ejection fraction is 20 %. Stage 1 diastolic dysfunction. Mid-Anterior : Severely Hypokinetic. Anterio-Basal: Hypokinetic. Anterior [place] : Hypokinetic. Mid-Inferior: Normal. Infero-Basal: Normal. Right Ventricle Normal RV size. Normal systolic function. Atria Normal left atrium. Normal right atrium. Mitral Valve Normal mitral valve. Tricuspid Valve Normal tricuspid valve. Aortic Valve Trisinus/trileaflet aortic valve. Great Vessels Normal aortic root. The pulmonary is not well visualized. Normal inferior vena cava. Pericardium/Pleural No pericardial effusion. Medication Diluted definity 3ml given slow IV push to enhance endocardial definition. MMode/2D Measurements & Calculations LVIDd: 6.2 cm IVSd: 0.98 cm Ao root diam: 3.5 cm LVIDs: 4.9 cm LVPWd: 1.3 cm FS: 22.0 % LAV(MOD-sp4): 44.7 ml LA A4 area: 16.8 cm2 LA dimension(2D): 3.1 cm TAPSE: 1.8 cm RA A4 area: 11.9 cm2 Time Measurements MV dec time: 0.23 sec Doppler Measurements & Calculations MV E max hal: 38.9 cm/sec Lat Peak E' Hal: 4.8 cm/sec Med Peak E' Hal: 5.3 cm/sec MV A max hal: 45.7 cm/sec E/E' lat: 8.1 E/E' med: 7.4 MV E/A: 0.85 MV V2 max: 59.9 cm/sec MV dec slope: 175.1 cm/sec2 Ao V2 max: 54.8 cm/sec MV max P.4 mmHg Ao max P.2 mmHg MV V2 mean: 29.7 cm/sec Ao V2 mean: 34.3 cm/sec MV mean P.47 mmHg Ao mean P.59 mmHg MV V2 VTI: 16.7 cm Ao V2 VTI: 8.9 cm AV (velocity ratio): 0.90 LV V1 max: 44.0 cm/sec PA V2 max: 81.4 cm/sec LV V1 max P.77 mmHg PA V2 mean: 58.5 cm/sec LV V1 mean P.43 mmHg LV V1 mean: 29.5 cm/sec LV V1 VTI: 8.0 cm ECHO/Echo Complete W/ Contrast Interpretation Summary Normal LV size. Moderately severe segmental systolic dysfunction (see wall motion). The estimated ejection fraction is 20 %. Stage 1 diastolic dysfunction. Ordering Physician: Aguila Villarreal Referring Physician: CAMILLE VIERA Performed By: Amie Hall RCS
[2023-05-23 10:59] LABS: Hematocrit 41.7 % (40-54); Hemoglobin 14.1 g/dL (13.0-16.5); Mean Corp Hgb Conc 33.8 g/dL (32-36); Mean Corpuscular Hgb 29.5 pg (27.0-32.0); Mean Corpuscular Volume 87.2 fL (80-94); Mean Platelet Vol. 9.9 fl (6.2-12.0); Platelet Count 216 K/mm3 (150-450); RBC Distribution Width CV 13.6 % (11.6-14.6); RBC Distribution Width SD 43.8 fl (35.1-43.9); Red Blood Count 4.78 M/mm3 (4.6-6.2); White Blood Count 18.7 K/mm3 (4.4-11.0)
[2023-05-23 11:09] LABS: Anion Gap 8 (5-15); BUN 8 mg/dL (7-18); BUN/Creat Ratio 7.8 RATIO (10-20); Calcium,Total 8.5 mg/dL (8.5-10.1); Chloride 98 mmol/L (98-107); Creatinine, Serum 1.02 mg/dL (0.70-1.30); EST Glomerular Filtration Rate 81 mL/min (>60); Est Glom Filt Rate - Afr Amer 98 mL/min (>60); Estimated Creatinine Clearance 93.56 ml/min; Glucose 423 mg/dL (74-106); Phosphorus 3.8 mg/dL (2.5-4.9); Potassium 4.1 mmol/L (3.5-5.1); Sodium Level 130 mmol/L (136-145)
[2023-05-23 11:10] LABS: Troponin-I HS 13903 pg/mL (3.0-78.0)
[2023-05-23 11:29] LABS: Lactic Acid 1.8 mmol/L (0.4-1.9)
--- NOTE | 2023-05-23 11:36 | CON.PCM.CC_ITS ---
Assessment & Plan Assessment/Plan (1) ST elevation (STEMI) myocardial infarction: QUALIFIERS: Involved coronary artery: LAD coronary artery Qualified Code(s): I21.02 - ST elevation (STEMI) myocardial infarction involving left anterior descending coronary artery PLAN: Plan RECOMMENDATIONS: 1. Continue assist-control mode of mechanical ventilation. Wean FiO2 to maintain oxygen saturations at or above 90%. 2. Initiate propofol and fentanyl for sedation. 3. Amiodarone per cardiology recommendations. 4. Continue empiric antimicrobials, pending culture results. 5. Initiate appropriate GI prophylaxis. IMPRESSIONS: 1. Acute respiratory failure status post STEMI The patient was ultimately intubated in the emergency department over concerns for airway protection and possible development of pulmonary edema. The patient was taken to the cardiac catheterization lab where he underwent stent placement to the mid LAD. Ejection fraction was estimated to be approximately 10%. Recommend continuing assist-control mode of mechanical ventilation for now. Wean FiO2 to maintain oxygen saturations at or above 90%. Obtain follow-up arterial blood gas. Sputum culture has already been sent. Continue empiric antimicrobials for now. 2. History of diabetes mellitus/obesity/obstructive sleep apnea Complicates care, management, recovery and prognosis. Initiate Accu-Cheks and sliding scale insulin coverage. TIME: 35 minutes of critical care time, independent of procedures, was spent addressing the patient's acute respiratory failure status post STEMI, review of all data and collaboration with the care team. HPI Consult Data Date of Consult: 05/24/23 HPI Narrative Reason for Consultation: Acute respiratory failure, STEMI HPI Narrative: The patient is a 52-year-old male, with a history as outlined below, who presented to the emergency department via EMS on May 23 with chest pain. History pertinent to the patient's hospitalization was obtained primarily via chart review, as the patient is currently intubated and sedated. The patient has a known history of chronic tobacco dependency, obstructive sleep apnea and diabetes mellitus. He contacted EMS after awakening with left-sided chest discomfort. While in route to the hospital, the patient became unresponsive and was noted to be in ventricular fibrillation with no pulse. CPR was initiated and the patient was shocked. Sinus rhythm was ultimately restored. On presentation to the emergency department, the patient was noted to be afebrile and hemodynamically stable. Initial laboratory evaluation revealed a white blood cell count of 16,000. Coagulation profile was unremarkable. Chemistry profile was notable for a sodium of 130, chloride of 96 and normal creatinine. Glucose was elevated at 322. Troponin was elevated at 13,903. BNP was within normal limits. A STEMI alert was called. The patient was ultimately intubated in the emergency department over concerns for airway protection. The patient was taken to the cardiac catheterization lab, where he underwent stent placement to the LAD. Postprocedure, the patient was transferred to the medical intensive care unit for further management. Initial arterial blood gas demonstrated a pH of 7.2 with a PCO2 of 54 and PO2 167. [facility] Medical History Arthritis Back pain CPAP (continuous positive airway pressure) dependence Diabetes Diabetes mellitus History of steroid therapy Fabienne's syndrome Injury of back Injury of head and neck Kidney stones Obesity (BMI 30-39.9) IZAIAH (obstructive sleep apnea) Sleep apnea Smoker Surgical wound dehiscence Tobacco abuse Tobacco abuse counseling Urinary incontinence Wears dentures Home Medications metformin 500 mg tablet,extended release 24 hr 1,000 mg PO BID 11/01/19 [History Last Taken 11/05/19 05:30] dulaglutide 1.5 mg/0.5 mL subcutaneous pen injector (Trulicity) 1.5 mg SQ QWEEK 11/26/20 [History Last Taken 06/01/21] cyclobenzaprine 10 mg tablet 10 mg PO BID PRN MUSCLE SPASMS 01/14/21 [History Last Taken Unknown] atorvastatin 40 mg tablet 40 mg PO DAILY 06/08/21 [History Last Taken Unknown] escitalopram oxalate 20 mg tablet (Lexapro) 20 mg PO DAILY 06/08/21 [History Last Taken Unknown] gabapentin 400 mg capsule 400 mg PO TID 06/08/21 [History Last Taken 06/09/21] oxycodone-acetaminophen 5 mg-325 mg tablet 1 - 2 tab PO Q6H PRN PRN Pain 06/08/21 [History Last Taken Unknown] doxycycline monohydrate 100 mg capsule 100 mg PO BID #20 caps 06/17/21 [Rx Last Taken Unknown] Allergy/AdvReac Type Severity Reaction Status Date / Time coconut Allergy Swelling Verified 07/06/21 11:14 Sulfa (Sulfonamide Allergy Swelling Verified 07/06/21 11:14 Antibiotics) Family History unable to obtain Surgical History History of incision and drainage Hx of abdominal surgery Hx of anterior cruciate ligament surgery Hx of arthroscopic knee surgery Hx of carpal tunnel repair Hx of colonoscopy Hx of decompressive lumbar laminectomy Hx of elbow surgery Hx of laparoscopic gastric banding Hx of neck surgery Hx of rotator cuff surgery Social History Smoking Status: Current every day smoker tobacco type: cigarettes substance use type: does not use ROS Review of Systems ROS Unobtainable: due to endotracheal tube Physical Exam Const Constitutional Narrative: Intubated, sedated and mechanically ventilated. Nutritional Appearance: obese HEENT normocephalic, head/scalp atraumatic and moist oral mucous membranes Mouth: endotracheal tube in place and OG tube in place Eyes PERRL, EOMs intact bilaterally and conjunctivae normal Neck supple General: trachea midline Chest inspection of chest normal Resp normal respiratory effort Auscultation: Negative for rales, rhonchi or wheezes Cardio regular rate and regular rhythm GI normal to inspection, nondistended, normoactive bowel sounds Extremity no clubbing, cyanosis or edema Skin no rashes or lesions noted Neuro Sensorium / Orientation: sedated on vent Lab / Micro Data 05/24/23 04:00 05/24/23 04:00 Labs: Laboratory Results - last 24 hr 05/23/23 07:50: WBC 15.9 H, RBC 5.45, Hgb 16.0, Hct 47.1, MCV 86.4, MCH 29.4, MCHC 34.0, RDW Std Deviation 43.5, RDW Coeff of Sunday 13.8, Plt Count 299, MPV 10.6, Immature Gran % (Auto) 0.600, Neut % (Auto) 65.5, Lymph % (Auto) 27.6, [place] % (Auto) 5.2, Eos % (Auto) 0.7, Baso % (Auto) 0.4, Absolute Neuts (auto) 10.4 H, Absolute Lymphs (auto) 4.37, Nucleated RBC % 0, PT 12.8, INR 1.0, APTT 27.5, Sodium 130 L, Potassium 3.8, Chloride 96 L, Carbon Dioxide 26.0, Anion Gap 8, BUN 7, Creatinine 1.02, Estim Creat Clear Calc 93.56, Est GFR (MDRD) Af Amer 98, Est GFR (MDRD) Non-Af 81, BUN/Creatinine Ratio 6.9 L, Glucose 322 H, Calcium 9.6, Magnesium 2.2, Total Creatine Kinase 70, Troponin I High Sens 9, B- Natriuretic Peptide 11.6, Triglycerides 480 H 05/23/23 10:00: Troponin I High Sens [id number] H* 05/23/23 10:45: WBC 18.7 H, RBC 4.78, Hgb 14.1, Hct 41.7, MCV 87.2, MCH 29.5, MCHC 33.8, RDW Std Deviation 43.8, RDW Coeff of Sunday 13.6, Plt Count 216, MPV 9.9, Sodium 130 L, Potassium 4.1, Chloride 98, Carbon Dioxide 24.0, Anion Gap 8, BUN 8, Creatinine 1.02, Estim Creat Clear Calc 93.56, Est GFR (MDRD) Af Amer 98, Est GFR (MDRD) Non-Af 81, BUN/Creatinine Ratio 7.8 L, Glucose 423 H, Lactic Acid 1.8, Calcium 8.5, Phosphorus 3.8 ABG Data ABG results: ABG 05/23/23 09:59 Specimen Type ART Sample Site L Radial pH 7.22 L Bicarbonate Actual 22.3 Total CO2 24 Base Excess -5 L O2 Saturation 99 O2 % 100 ABG pCO2 53.9 H ABG pO2 167 H Margarito Test Positive Respiration Rate 14 O2 Delivery Device Adult Vent Vent Mode AC Tidal Volume 450 POC PEEP 5 Radiology Impression Chest X-Ray 05/23/23 07:55 IMPRESSION: 1. Limited study due to radiopaque patches obscuring portions of the lungs. 2. No suspicious acute chest abnormality. 3. Satisfactory placement of ET tube and OG tube. Electronically Signed: Chau Terry MD at 9:06 EDT , Charges/Coding Procedures Hospitalists Procedures: [id number] [facility]
--- NOTE | 2023-05-23 11:41 | CL.I_ITS ---
Patient Name: UMER CLIFFORD Study Date: 05/23/2023 Performing: Coco Lara MD Ht: 73 inches 185.42 cm : 1970 Wt: 274 lbs 124.1 kg Age: 52 Gender: male BSA: 2.46 PROCEDURE(S) PERFORMED DC01-(63308)LHC/COR/LV IC16-([id number]/[id number])AMI, YURIY OR PTCA, ARTERY/GRAFT, SINGLE VESSEL IC02-(08313)PTCA, EACH ADD'L CORONARY ART, SAME MAJOR CLINICAL PROFILE AND CO-MORBIDITIES Indications: ACS <= 24 hrs Heart Failure: None Stress/Imaging Stress/Image Study Performed: No CAD Presentations: STEMI. Symptom onset Date/Time: 05/23/23 Time Not Available Other: Cardiac arrest- V fib requiring defbrillation enroute to the hospital. CONCLUSIONS CAD as described. No significant or MR. Successful PCI of LAD with YURIY and PTCA alone of D2. RECOMMENDATIONS DESCRIPTION OF PROCEDURE The patient arrived to the procedure lab. The risks and benefits of the procedure as well as a full description of our services here and lack of surgical backup were fully explained to the patient and/or their significant other prior to the catheterization. The Timeout was completed, verifying the correct patient and procedure. The patient's procedural site was prepped and draped in the usual fashion. Local anesthetic was given subcutaneously to right radial region with Lidocaine 2%. Using a modified Seldinger technique, arterial access was obtained via the right radial artery, a 6Fr sheath was inserted.. Left Coronary Artery selective angiography was performed in multiple views using a 6 Fr. XB 3.0. Left Ventriculography was performed in BARAJAS projection using a 5 Fr. JR4. LV to AO pullback pressures were then recorded. Right Coronary Artery selective angiography was then performed in multiple views using a 5 Fr. JR 4 catheterThe images were reviewed and options discussed. A decision was then made to proceed with an Intervention, IVUS or other adjunct procedure. XB 3.0 Guide catheter was inserted and engaged into the LCA. [employer] [place] Guide wire was advanced to the LAD. Emerge 2.5 x 12 Balloon catheter was inserted. Balloon catheter was advanced across lesion in the LAD, ostial. PTCA balloon inflated at 6 atms for 8 secs. PTCA balloon inflated at 6 atms for 5 secs. PTCA balloon inflated at 6 atms for 5 secs. Angiogram performed post balloon dilatation. PTCA balloon inflated at 6 atms for 6 secs. PTCA balloon inflated at 6 atms for 8 secs. PTCA balloon inflated at 6 atms for 9 secs. PTCA balloon inflated at 6 atms for 6 secs. PTCA balloon inflated at 6 atms for 14 secs. PTCA balloon inflated at 12 atms for 8 secs. Ko Resolute 3.5 x 34 Drug Eluting stent was inserted. Drug Eluting stent was advanced across the lesion in the LAD, ostial. Guide wire was repositioned to the 2nd Diagonal Emerge 1.5 x 15 Balloon catheter was inserted. Balloon catheter was advanced across lesion in the second diagonal, ostial PTCA balloon inflated at 12 atms for 9 secs. PTCA balloon inflated at 14 atms for 10 secs. PTCA balloon inflated at 14 atms for 10 secs. Angiogram performed post balloon dilatation. The arterial sheath was pulled and a TR Band was applied for hemostasis CORONARY ANGIOGRAPHY DOMINANCE: Right Dominant LEFT HEART ASSESSMENT Left Ventricular Ejection Fraction: by LV Gram 15 %. EF assessment suboptimal due to VT during LV gram Abnormal LV wall motion. Unable to assess due to VT LEFT MAIN: Mild luminal irregularities LEFT ANTERIOR DESCENDING ARTERY: OSTIAL LAD: 100 % Stenosis CIRCUMFLEX ARTERY: Mild luminal irregularities RIGHT CORONARY ARTERY: Mild luminal irregularities INTERVENTION INFORMATION LESION SITE: LAD (Ostial) Lesion Complexity: High/C, chronic total occlusion: No, lesion at bifurcation: Yes, thrombus present: Yes, lesion length: 32 mm, culprit lesion: Yes, Previously treated lesion: No Pre Stenosis: 100 % Pre intervention DEYSI flow: 0 PROCEDURE: Drug Eluting Stent with pre dilatation. Pt. went into cardiac arrest due to V fib prior to PCI and required a total of at least 4 shock. Chest compressions were performed and medications were also administed per ACLS protocol. Post Stenosis: 0 % Post intervention DEYSI flow: 3 Lesion Devices: Cordis 6 Fr XB3.0 100cm Guide Catheter Cadet .014 190cm [employer] [place] Straight Spencer Sci EMERGE MR 2.50x12 BALLOON Medtronic Resolute Ko RX YURIY 3.5x34 LESION SITE: 2nd Diagonal (Ostial) Lesion Complexity: High/C, chronic total occlusion: No, lesion at bifurcation: Yes, thrombus present: Yes, lesion length: 4 mm, culprit lesion: Yes, Previously treated lesion: No Pre Stenosis: 99 % Pre intervention DEYSI flow: 3 PROCEDURE: Balloon Angioplasty This vessel was jailed by the stent in the LAD. Thrombus migrated to the ostial D2 with stent placement. PTCA alone was performed to improve flow. Pt will be on integrillin to clear the thrombus Post Stenosis: 70 % Post intervention DEYSI flow: 3 Lesion Devices: Cordis 6 Fr XB3.0 100cm Guide Catheter Cadet .014 190cm [employer] [place] Straight Spencer Sci EMERGE MR 1.50x15 BALLOON COMPLICATIONS No Complications PROCEDURE MEDICATIONS Oxygen: 100 % FiO2 via ventilator. See Resp Record for Settings Amiodarone 150 mg/min @ 05/23/2023 08:29:58 Epinephrine 1mg 05/23/2023 08:27:41 Heparin given IA 05/23/2023 08:14:35 Heparin 2000 unit(s) IV 05/23/2023 08:15:03 Verapamil 2.5mg, Ntg 100mcgs, 3000 units of Heparin given IA 05/23/2023 08:14:35 SUMMARY OF HEMODYNAMIC DATA Time AIR REST ECG 08:01:32 AO 121/107 (115) SA 08:14:46 LV 98/24, 28 08:49:04 LV 97/24, 28 08:49:11 LV 96/30, 39 08:49:47 LV 92/29, 31 08:49:55 LVp 83/23, 31 08:50:12 AOp 0/0 (84) 08:50:17 Signed By Coco Lara MD On 05/23/2023 11:41:20 Coco Lara MD
[2023-05-23] MEDS: 0.9% Normal Saline 1,000 ML 70 ML IV (11:42)
[2023-05-23] MEDS: TICAGRELOR 90 MG TABLET 180 MG PO (11:42)
--- NOTE | 2023-05-23 12:27 | PCM.CONS.C ---
Assessment & Plan Assessment/Plan (1) ST elevation (STEMI) myocardial infarction: QUALIFIERS: Involved coronary artery: LAD coronary artery Qualified Code(s): I21.02 - ST elevation (STEMI) myocardial infarction involving left anterior descending coronary artery PLAN: Treated with drug-eluting stent placement to the LAD. Patient was just weaned off Levophed. We will start him on beta-adeola and HANH inhibitor when blood pressure can tolerate. At this time we will keep him on aspirin, Brilinta and statin. (2) Ventricular fibrillation: PLAN: In the setting of anterior ST elevation SD. Patient has been electrically stable after PCI. It is reasonable to continue amiodarone for 24 hours. (3) Cardiac arrest: PLAN: Secondary to ventricular fibrillation in the setting of ST elevation SD. Stable at this time. Patient was waking up when the sedation was decreased and seem to be moving appropriately. (4) LV dysfunction: PLAN: We will check a 2D echo. We will start him on HANH inhibitor and beta-adeola when blood pressure can tolerate. He will need a 2D echo in 3 months to see if he would benefit from an AICD if his EF by echo is less than 35%. HPI Consult Data Date of Consult: 05/23/23 HPI Narrative Reason for Consultation: STEMI HPI Narrative: UMER CLIFFORD, is a 52 M who presents with chest pain. Patient was intubated and sedated when I initially evaluated the patient. The history is from the patient's records. Apparently patient called 911 as he was having chest pain. EKG done by the EMS revealed anterior STEMI and a STEMI alert was called. On the way to the hospital patient had 2 episodes of loss of consciousness. He had an episode of ventricular fibrillation and required defibrillation. In the emergency room patient was going in and out of consciousness and had severe shortness of breath. He was intubated and brought emergently to the cardiac [employer]. He underwent emergent coronary angiography. During the coronary angiography he went into ventricular fibrillation. He required at least 4 shocks and CPR was performed according to ACLS protocol. Patient was found to have an occluded LAD that was treated with drug-eluting stent placement. Patient's rhythm stabilized after the PCI. He was initially on Levophed which was then weaned off in the ICU. Review of systems: Review of systems could not be performed as patient is intubated and sedated. [facility] Medical History Arthritis Back pain CPAP (continuous positive airway pressure) dependence Diabetes Diabetes mellitus History of steroid therapy Fabienne's syndrome Injury of back Injury of head and neck Kidney stones Obesity (BMI 30-39.9) IZAIAH (obstructive sleep apnea) Sleep apnea Smoker Surgical wound dehiscence Tobacco abuse Tobacco abuse counseling Urinary incontinence Wears dentures Home Medications metformin 500 mg tablet,extended release 24 hr 1,000 mg PO BID 11/01/19 [History Last Taken 11/05/19 05:30] dulaglutide 1.5 mg/0.5 mL subcutaneous pen injector (Trulicity) 1.5 mg SQ QWEEK 11/26/20 [History Last Taken 06/01/21] cyclobenzaprine 10 mg tablet 10 mg PO BID PRN MUSCLE SPASMS 01/14/21 [History Last Taken Unknown] atorvastatin 40 mg tablet 40 mg PO DAILY 06/08/21 [History Last Taken Unknown] escitalopram oxalate 20 mg tablet (Lexapro) 20 mg PO DAILY 06/08/21 [History Last Taken Unknown] gabapentin 400 mg capsule 400 mg PO TID 06/08/21 [History Last Taken 06/09/21] oxycodone-acetaminophen 5 mg-325 mg tablet 1 - 2 tab PO Q6H PRN PRN Pain 06/08/21 [History Last Taken Unknown] doxycycline monohydrate 100 mg capsule 100 mg PO BID #20 caps 06/17/21 [Rx Last Taken Unknown] Allergy/AdvReac Type Severity Reaction Status Date / Time coconut Allergy Swelling Verified 07/06/21 11:14 Sulfa (Sulfonamide Allergy Swelling Verified 07/06/21 11:14 Antibiotics) Family History unable to obtain Surgical History History of incision and drainage Hx of abdominal surgery Hx of anterior cruciate ligament surgery Hx of arthroscopic knee surgery Hx of carpal tunnel repair Hx of colonoscopy Hx of decompressive lumbar laminectomy Hx of elbow surgery Hx of laparoscopic gastric banding Hx of neck surgery Hx of rotator cuff surgery Social History Smoking Status: Current every day smoker tobacco type: cigarettes substance use type: does not use Physical Exam Const Constitutional Narrative: Intubated, sedated HEENT normocephalic Resp Resp Narrative: No significant crackles anteriorly and laterally. Skin no rashes or lesions noted Risk Stratification Risk Stratification Applicable: No Charges/Coding Visit Charges Inpatient E&M: 82410 Init Hosp L2 Objective Data Vital Signs: Vital Signs Temp Pulse Resp BP Pulse Ox O2 Del Method FiO2 96.8 F L 71 16 90/69 100 Mechanical Ventilator 100 05/23/23 12:00 05/23/23 12:00 05/23/23 12:00 05/23/23 12:00 05/23/23 12:00 05/23/23 12:00 05/23/23 12:00 Oxygen Delivery Method Mechanical Ventilator Weight: 273 lb 9.498 oz Body Mass Index (BMI) 36.2 Intake & Output: Intake and Output for Last 24 Hours 05/21/23 05/22/23 05/23/23 23:59 23:59 23:59 Intake Total 86.49 / 86.49 Output Total 200 / 200 Balance -113.51 / -113.51 Lab / Micro Data 05/23/23 10:45 05/23/23 10:45 Labs: Laboratory Results - last 24 hr 05/23/23 07:50: WBC 15.9 H, RBC 5.45, Hgb 16.0, Hct 47.1, MCV 86.4, MCH 29.4, MCHC 34.0, RDW Std Deviation 43.5, RDW Coeff of Sunday 13.8, Plt Count 299, MPV 10.6, Immature Gran % (Auto) 0.600, Neut % (Auto) 65.5, Lymph % (Auto) 27.6, [place] % (Auto) 5.2, Eos % (Auto) 0.7, Baso % (Auto) 0.4, Absolute Neuts (auto) 10.4 H, Absolute Lymphs (auto) 4.37, Nucleated RBC % 0, PT 12.8, INR 1.0, APTT 27.5, Sodium 130 L, Potassium 3.8, Chloride 96 L, Carbon Dioxide 26.0, Anion Gap 8, BUN 7, Creatinine 1.02, Estim Creat Clear Calc 93.56, Est GFR (MDRD) Af Amer 98, Est GFR (MDRD) Non-Af 81, BUN/Creatinine Ratio 6.9 L, Glucose 322 H, Calcium 9.6, Magnesium 2.2, Total Creatine Kinase 70, Troponin I High Sens 9, B-Natriuretic Peptide 11.6, Triglycerides 480 H 05/23/23 10:00: Troponin I High Sens 12515 H* 05/23/23 10:45: WBC 18.7 H, RBC 4.78, Hgb 14.1, Hct 41.7, MCV 87.2, MCH 29.5, MCHC 33.8, RDW Std Deviation 43.8, RDW Coeff of Sunday 13.6, Plt Count 216, MPV 9.9, Sodium 130 L, Potassium 4.1, Chloride 98, Carbon Dioxide 24.0, Anion Gap 8, BUN 8, Creatinine 1.02, Estim Creat Clear Calc 93.56, Est GFR (MDRD) Af Amer 98, Est GFR (MDRD) Non-Af 81, BUN/Creatinine Ratio 7.8 L, Glucose 423 H, Lactic Acid 1.8, Calcium 8.5, Phosphorus 3.8 ABG Data ABG results: ABG 05/23/23 09:59 Specimen Type ART Sample Site L Radial pH 7.22 L Bicarbonate Actual 22.3 Total CO2 24 Base Excess -5 L O2 Saturation 99 O2 % 100 ABG pCO2 53.9 H ABG pO2 167 H Margarito Test Positive Respiration Rate 14 O2 Delivery Device Adult Vent Vent Mode AC Tidal Volume 450 POC PEEP 5 Cardiology Labs/Tests 05/23/23 07:50: WBC 15.9 H, RBC 5.45, Hgb 16.0, Hct 47.1, MCV 86.4, MCH 29.4, MCHC 34.0, Plt Count 299, MPV 10.6, Immature Gran % (Auto) 0.600, Neut % (Auto) 65.5, Lymph % (Auto) 27.6, [place] % (Auto) 5.2, Eos % (Auto) 0.7, Baso % (Auto) 0.4, Absolute Neuts (auto) 10.4 H, Nucleated RBC % 0, PT 12.8, INR 1.0, APTT 27.5, Sodium 130 L, Potassium 3.8, Chloride 96 L, Carbon Dioxide 26.0, Anion Gap 8, BUN 7, Creatinine 1.02, Est GFR (MDRD) Af Amer 98, Est GFR (MDRD) Non-Af 81, BUN/Creatinine Ratio 6.9 L, Glucose 322 H, Calcium 9.6, Magnesium 2.2, B-Natriuretic Peptide 11.6, Triglycerides 480 H 05/23/23 09:59: pH 7.22 L, Bicarbonate Actual 22.3, Base Excess -5 L, O2 Saturation 99, ABG pCO2 53.9 H, ABG pO2 167 H, Margarito Test Positive 05/23/23 10:45: WBC 18.7 H, RBC 4.78, Hgb 14.1, Hct 41.7, MCV 87.2, MCH 29.5, MCHC 33.8, Plt Count 216, MPV 9.9, Sodium 130 L, Potassium 4.1, Chloride 98, Carbon Dioxide 24.0, Anion Gap 8, BUN 8, Creatinine 1.02, Est GFR (MDRD) Af Amer 98, Est GFR (MDRD) Non-Af 81, BUN/Creatinine Ratio 7.8 L, Glucose 423 H, Lactic Acid 1.8, Calcium 8.5, Phosphorus 3.8 Rhythm: EKG: ECHO: Stress Test: Cardiac Cath: PCI: CT Surgery: Holter monitor: EPS: PPM: CXR: Chest CT Scan: Radiography Diagnostic Testing: Radiology Impression Chest X-Ray 05/23/23 07:55 IMPRESSION: 1. Limited study due to radiopaque patches obscuring portions of the lungs. 2. No suspicious acute chest abnormality. 3. Satisfactory placement of ET tube and OG tube. Electronically Signed: Chau Terry MD at 9:06 EDT ,
[2023-05-23] MEDS: Insulin Lispro 100 UNIT/ML INSULN.PEN SC ×3 (13:39→21:41)
[2023-05-23 13:52] LABS: Bedside Glucose 392 mg/dL (74-106)
[2023-05-23 14:06] LABS: Allen Test Positive; Base Excess -1 mmol/L (-2 to +2); Bicarbonate 24.8 mmol/L (22-26); Blood Gas Specimen Type ART; FI02 100; Mode AC; O2 Delivery Device Adult Vent; PEEP 5; PO2 427 mmHG (75-100); RR 16; SITE L Radial; SO2 100 % (95-99); Total Carbon Dioxide 26 mmol/L; Vt 450; pCO2 46.3 mmHg (35-45); pH 7.34 (7.35-7.45)
[2023-05-23] MEDS: Amiodarone 360 MG in Dextrose 5% Viaflo Bag 192.8 ML 16.7 MG CONT INF (16:41)
[2023-05-23] MEDS: fentaNYL drip 100 ML 10 MCG CONT INF (17:01)
[2023-05-23] MEDS: Propofol 10MG/Ml 1,000 MG/100 ML Bottle 22.3 MG CONT INF (18:00)
[2023-05-23 18:26] LABS: Bedside Glucose 291 mg/dL (74-106)
[2023-05-23 21:34] LABS: Bedside Glucose 241 mg/dL (74-106)
[2023-05-23] MEDS: Propofol 10MG/Ml 1,000 MG/100 ML Bottle 26.1 MG CONT INF (21:40)
[2023-05-23] MEDS: Atorvastatin Calcium 40 MG Tablet PO (21:41)
[2023-05-23] MEDS: TICAGRELOR 90 MG TABLET PO (21:41)
[2023-05-24] VITALS (33 sets, daily range): BP systolic 100–131; BP diastolic 73–97; PULSE 67–92; RESP 10–25; TEMP 36.4–37.7; O2SAT 93–100; BMI 35.4
[2023-05-24 01:26] LABS: Bedside Glucose 200 mg/dL (74-106)
[2023-05-24] MEDS: Insulin Lispro 100 UNIT/ML INSULN.PEN SC ×4 (01:44→21:43)
[2023-05-24] MEDS: fentaNYL drip 100 ML 10 MCG CONT INF (02:00)
[2023-05-24] MEDS: Propofol 10MG/Ml 1,000 MG/100 ML Bottle 22.3 MG CONT INF (02:00)
[2023-05-24] MEDS: Amiodarone 360 MG in Dextrose 5% Viaflo Bag 192.8 ML 16.7 MG CONT INF (03:33)
[2023-05-24] MEDS: EPTIFIBATIDE 75 MG/100 ML VIAL 19.9 MG CONT INF (03:34)
[2023-05-24 04:14] LABS: Absolute Neutrophil Count 9.7 X10^3/uL (2.0-7.7); Basophil# 0.05 X10^3/uL; Basophil% 0.4 % (0-1); Eosinophil# 0.12 X10^3/uL; Hematocrit 41.7 % (40-54); Hemoglobin 13.6 g/dL (13.0-16.5); Lymphocyte % 13.8 % (19-41); Mean Corp Hgb Conc 32.6 g/dL (32-36); Mean Corpuscular Hgb 28.9 pg (27.0-32.0); Mean Corpuscular Volume 88.7 fL (80-94); Mean Platelet Vol. 10.3 fl (6.2-12.0); Monocyte# 0.61 X10^3/uL; NRBC Flagged by Analyzer 0 % (0-5); Neutrophil # 9.72 X10^3/uL (2.7-7.7); Neutrophil % 79.1 % (47-70); Platelet Count 221 K/mm3 (150-450); RBC Distribution Width CV 14.3 % (11.6-14.6); RBC Distribution Width SD 46.3 fl (35.1-43.9); White Blood Count 12.3 K/mm3 (4.4-11.0)
[2023-05-24 04:56] LABS: ALB/GLOB Ratio 0.8 RATIO (0.9-2.4); AST(SGOT) 164 U/L (15-37); Alanine Aminotransfer ALT/SGPT 47 U/L (16-61); Albumin, Serum 3.1 g/dL (3.2-5.0); Alkaline Phosphatase 92 U/L (45-117); Anion Gap 6 (5-15); BUN 13 mg/dL (7-18); BUN/Creat Ratio 11.5 RATIO (10-20); Calcium,Total 8.5 mg/dL (8.5-10.1); Chloride 100 mmol/L (98-107); Cholesterol 128 mg/dL (200); Creatinine, Serum 1.13 mg/dL (0.70-1.30); EST Glomerular Filtration Rate 72 mL/min (>60); Est Glom Filt Rate - Afr Amer 87 mL/min (>60); Estimated Creatinine Clearance 84.46 ml/min; Globulin 4.1 g/dL (2.2-4.2); Glucose 218 mg/dL (74-106); High Density Lipoprotein 26 mg/dL; Potassium 4.2 mmol/L (3.5-5.1); Protein, Total 7.2 g/dL (6.4-8.2); Sodium Level 132 mmol/L (136-145); Triglycerides 291 mg/dL; Very Low Density Lipoprotein 58 mg/dL (5-40)
[2023-05-24 05:25] LABS: Bedside Glucose 245 mg/dL (74-106)
--- NOTE | 2023-05-24 05:55 | RAD_ITS ---
EXAM: XR CHEST, 1 VIEW CLINICAL INDICATION: Pulm edema TECHNIQUE: Frontal view of the chest. COMPARISON: No relevant prior studies available. FINDINGS: LUNGS AND PLEURAL SPACES: Consolidation or atelectasis left lower lobe new since the previous exam. No pneumothorax. No effusion. HEART: Unremarkable. Cardiac silhouette not enlarged. MEDIASTINUM: Central airways and mediastinal contour are unremarkable. BONES/JOINTS: Unremarkable. SOFT TISSUES: Unremarkable. TUBES, LINES AND DEVICES: Endotracheal tube tip is 5 cm above the michael. NG tube is in the stomach. RAD/Chest 1 View (Portable) IMPRESSION: 1. Consolidation or atelectasis left lower lobe new since the previous exam. 2. Endotracheal tube tip is 5 cm above the michael. 3. NG tube is in the stomach. Electronically Signed: Bg Cabrera MD at 3:46 EDT ,
[2023-05-24 07:48] LABS: Hemoglobin A1c 11.5 % (3.8-5.6)
--- NOTE | 2023-05-24 08:29 | PN.CC_ITS ---
Assessment & Plan Assessment/Plan (1) ST elevation (STEMI) myocardial infarction: QUALIFIERS: Involved coronary artery: LAD coronary artery Qualified Code(s): I21.02 - ST elevation (STEMI) myocardial infarction involving left anterior descending coronary artery PLAN: Plan RECOMMENDATIONS: 1. Proceed with a trial of extubation this morning. 2. Once extubated, wean supplemental oxygen to maintain saturations at or above 90%. 3. Maintain n.p.o. status for now. 4. Obtain stat neurology consultation given new onset seizures. 5. Keppra load with as needed Ativan. Initiate seizure precautions. 6. Obtain MRI brain. 7. Obtain EEG. 8. Continue empiric antimicrobials, pending culture results. IMPRESSIONS: 1. Acute respiratory failure status post STEMI Improved. The patient was ultimately intubated in the emergency department over concerns for airway protection and possible development of pulmonary edema. The patient was taken to the cardiac catheterization lab where he underwent stent placement to the mid LAD. Ejection fraction was estimated to be approximately 10%. The patient improved from a respiratory perspective and was able to be extubated on the morning of May 24. Plan to continue to wean supplemental oxygen, as tolerated, to maintain saturations at or above 90%. Empiric antimicrobials will be continued, pending finalized sputum culture results. 2. New onset seizures The patient developed new onset seizure activity on the morning of May 24 with subsequent postictal state. Stat CT head was unremarkable. Neurology consultation was obtained. The patient was loaded with Keppra. He will be maintained on seizure precautions along with as needed Ativan. EEG will be obtained, as well as MRI brain. 3. History of diabetes mellitus/obesity/obstructive sleep apnea Complicates care, management, recovery and prognosis. Continue Accu-Cheks and sliding scale insulin coverage. TIME: 84 total minutes of critical care time, independent of procedures, was spent addressing the patient's acute respiratory failure status post STEMI, new onset seizures, review of all data and collaboration with the care team. Subjective Subjective The patient was seen and examined at the bedside this morning. Events from the last 24 hours have been reviewed. The patient is currently afebrile, hemodynamically stable and maintaining appropriate oxygen saturations on spontaneous mode of mechanical ventilation with an FiO2 requirement of 30%. The patient did well overnight. He is currently alert and appropriately interactive. The patient passed his spontaneous breathing trial without issue. The patient was subsequently extubated at the bedside without complication. At approximately 8:45 AM this morning, the patient became nonresponsive with seizure-like activity. He was medicated on several occasions with Ativan and was taken for a stat CT head, which was ultimately negative. Stat neurology consultation was obtained. The patient was loaded with Keppra. Seizure precautions were initiated. Per recommendations, the patient will be taken for MRI brain. Objective Data Objective Data The patient's most recent lab work, culture data and imaging studies have all been personally reviewed. Surface echocardiogram demonstrated moderately severe segmental systolic dysfunction with an ejection fraction of 20%. Sputum culture is pending. Vital Signs: Vital Signs Temp Pulse Resp BP Pulse Ox O2 Del Method O2 Flow Rate 97.6 F L 72 21 H 131/97 H 93 Nasal Cannula 3 05/24/23 07:00 05/24/23 07:00 05/24/23 07:00 05/24/23 07:00 05/24/23 07:00 05/24/23 07:00 05/24/23 07:00 FiO2 30 05/24/23 05:00 Oxygen Flow Rate (L/min) 3 Oxygen Delivery Method Nasal Cannula Weight: 268 lb 11.896 oz Body Mass Index (BMI) 35.4 Intake & Output: Intake and Output for Last 24 Hours 05/22/23 05/23/23 05/24/23 23:59 23:59 23:59 Intake Total 1705.42 / 1737.72 677.57 / 677.57 Output Total 1100 / 1100 250 / 250 Balance 605.42 / 637.72 427.57 / 427.57 Lab / Micro Data Attestation: I reviewed the patient's lab results. 05/24/23 04:00 05/24/23 04:00 Labs: Laboratory Results - last 24 hr 05/23/23 07:50: PT 12.8, INR 1.0, APTT 27.5, Total Creatine Kinase 70, B- Natriuretic Peptide 11.6, Triglycerides 480 H 05/23/23 10:00: Troponin I High Sens 95369 H* 05/23/23 10:45: WBC 18.7 H, RBC 4.78, Hgb 14.1, Hct 41.7, MCV 87.2, MCH 29.5, MCHC 33.8, RDW Std Deviation 43.8, RDW Coeff of Sunday 13.6, Plt Count 216, MPV 9.9, Sodium 130 L, Potassium 4.1, Chloride 98, Carbon Dioxide 24.0, Anion Gap 8, BUN 8, Creatinine 1.02, Estim Creat Clear Calc 93.56, Est GFR (MDRD) Af Amer 98, Est GFR (MDRD) Non-Af 81, BUN/Creatinine Ratio 7.8 L, Glucose 423 H, Lactic Acid 1.8, Calcium 8.5, Phosphorus 3.8 05/23/23 13:34: POC Glucose 392 H 05/23/23 18:08: POC Glucose 291 H 05/23/23 21:15: POC Glucose 241 H 05/24/23 01:08: POC Glucose 200 H 05/24/23 04:00: WBC 12.3 H, RBC 4.70, Hgb 13.6, Hct 41.7, MCV 88.7, MCH 28.9, MCHC 32.6, RDW Std Deviation 46.3 H, RDW Coeff of Sunday 14.3, Plt Count 221, MPV 10.3, Immature Gran % (Auto) 0.700, Neut % (Auto) 79.1 H, Lymph % (Auto) 13.8 L, [place] % (Auto) 5.0, Eos % (Auto) 1.0, Baso % (Auto) 0.4, Absolute Neuts (auto) 9.7 H, Absolute Lymphs (auto) 1.70, Nucleated RBC % 0, Sodium 132 L, Potassium 4.2, Chloride 100, Carbon Dioxide 26.0, Anion Gap 6, BUN 13, Creatinine 1.13, Estim Creat Clear Calc 84.46, Est GFR (MDRD) Af Amer 87, Est GFR (MDRD) Non-Af 72, BUN/Creatinine Ratio 11.5, Glucose 218 H, Hemoglobin A1c 11.5 H, Calcium 8.5, Total Bilirubin 0.50, AST 164 H, ALT 47, Alkaline Phosphatase 92, Total Protein 7.2, Albumin 3.1 L, Globulin 4.1, Albumin/Globulin Ratio 0.8 L, Triglycerides 291 H, Cholesterol 128, LDL Cholesterol 44, VLDL Cholesterol 58 H, HDL Cholesterol 26 L, TSH 29.40 H 05/24/23 04:58: POC Glucose 245 H ABG Data ABG results: ABG 05/23/23 05/23/23 09:59 14:02 Specimen Type ART ART Sample Site L Radial L Radial pH 7.22 L 7.34 L Bicarbonate Actual 22.3 24.8 Total CO2 24 26 Base Excess -5 L -1 O2 Saturation 99 100 H O2 % 100 100 ABG pCO2 53.9 H 46.3 H ABG pO2 167 H 427 H* Margarito Test Positive Positive Respiration Rate 14 16 O2 Delivery Device Adult Vent Adult Vent Vent Mode AC AC Tidal Volume 450 450 POC PEEP 5 5 Crit Call To/Read Back Yes Blood Gas Notified Whom BROWN Radiography Diagnostic Testing: Radiology Impression Chest X-Ray 05/23/23 07:55 IMPRESSION: 1. Limited study due to radiopaque patches obscuring portions of the lungs. 2. No suspicious acute chest abnormality. 3. Satisfactory placement of ET tube and OG tube. Electronically Signed: Chau Terry MD at 9:06 EDT , Echocardiogram 05/23/23 10:46 Interpretation Summary Normal LV size. Moderately severe segmental systolic dysfunction (see wall motion). The estimated ejection fraction is 20 %. Stage 1 diastolic dysfunction. Ordering Physician: Aguila Villarreal Referring Physician: CAMILLE VIERA Performed By: Amie Hall RCS Chest X-Ray 05/24/23 05:55 IMPRESSION: 1. Consolidation or atelectasis left lower lobe new since the previous exam. 2. Endotracheal tube tip is 5 cm above the michael. 3. NG tube is in the stomach. Electronically Signed: Bg Cabrera MD at 3:46 EDT , Physical Exam Const Constitutional Narrative: Remains intubated and mechanically ventilated. Nutritional Appearance: obese HEENT normocephalic, head/scalp atraumatic and moist oral mucous membranes Mouth: endotracheal tube in place and OG tube in place Eyes PERRL, EOMs intact bilaterally and conjunctivae normal Neck supple General: trachea midline Chest inspection of chest normal Resp normal respiratory effort Auscultation: Negative for rales, rhonchi or wheezes Cardio regular rate and regular rhythm GI normal to inspection, nondistended, normoactive bowel sounds Extremity no clubbing, cyanosis or edema Skin no rashes or lesions noted Neuro Neuro Narrative: Alert and able to follow simple commands. Psych cooperative Charges/Coding Procedures Hospitalists Procedures: 11071 Critial Care 1st Hr Multi Select Codes Hospitalists' Procedures Procedures: 48786 Critial Care Addl 30 Min
[2023-05-24] MEDS: LORazepam 2 MG/ML Syringe IV ×4 (08:40→15:08)
--- NOTE | 2023-05-24 08:44 | CRPHASE1 ---
Patient Communication Patient Information PHII Cardiac Rehab Discussed with Patient:: No (patient intubated, booklet given) Guide to Cardiac Rehab Given to Patient:: Yes Cardiac Rehab Facility Choice List Given to Patient:: Yes Communication to Cardiac Rehab Choice Program [facility] CR PHII:: Communication Given to CR Industrial Accountant:: Adam Lara Refer Phase II Cardiac Rehab:: Yes Sessions:: 36 sessions - 3 days/wk, 12 weeks Cardiac Rehabilitation Info Program Information Cardiac Rehabilitation Program Information: Cardiac Rehab The cardiac rehab team at [facility] consists of highly skilled exercise physiologists, nurses, respiratory therapists and physicians working together with you. Our purpose is to help you have a full recovery and achieve the goals you set for yourself. Over the years many of our patients have returned to activities they assumed they would never do again! We can help restore your confidence and motivation to make lifestyle changes that can have a significant impact on your health and quality of life! We can help answer questions and concerns you may have about exercise, lifestyle, medications, diet, stress and anxiety which are common following a hospitalization. WE monitor ECG and vital signs during exercise and discuss your progress with you and report to your physician(s). Cardiac Rehab is proven to help reduce readmissions, improve functional capacity and lower recurrence of problems with your heart. Our Cardiac Rehab program is Certified by the [employer]-Vascular and Pulmonary Rehabilitation (AACVPR) and Accredited by the [employer] through our [facility]. You can contact us at . We invite you to call us with your questions or to get started in our program. If you have other questions or concerns be sure to ask your physician/provider during your follow-up visit. WE look forward to seeing you!
--- NOTE | 2023-05-24 08:48 | CT_ITS ---
INDICATION: seizure EXAMINATION: CT BRAIN - CT Head or Brain W/O Contrast Injection TECHNIQUE: Multiple axial images were obtained of the head without intravenous contrast. A radiation dose optimization technique was used for this scan. IV Contrast dosage and agent: None. RADIATION DOSAGE (If Supplied By Facility): CTDIvol = ( 44.99 ) mGy, DLP = ( 846.73 ) mGycm COMPARISON: FINDINGS: BRAIN PARENCHYMA: No intra- or extra-axial hemorrhage. No evidence of acute infarct. No intracranial mass or mass effect. There is preservation of the anderson/white matter interface. Posterior fossa structures are unremarkable. CSF SPACES: Appropriate for age. No hydrocephalus. Basal cisterns are patent. CALVARIUM, SKULL BASE, PARANASAL SINUSES AND MASTOID AIR CELLS: Clear. No discrete lytic or blastic abnormalities. ORBITS: Both globes, extraocular muscles, optic nerves and retrobulbar fat appear unremarkable. CT/Brain/Head without Contrast IMPRESSION: Negative Brain CT without contrast. Electronically Signed: Chaparro Hidalgo, at 9:12 EDT ,
--- NOTE | 2023-05-24 08:56 | PN.HOSP_ITS ---
Reason for Visit Reason for Visit: Diagnoses ST elevation (STEMI) myocardial infarction involving left anterior descending c oronary artery (05/23/23) ST elevation (STEMI) myocardial infarction of unspecified site (05/23/23) Cardiac arrest, cause unspecified (05/23/23) Ventricular fibrillation (05/23/23) Heart disease, unspecified (05/23/23) Acute pulmonary edema (05/23/23) Subjective Subjective Follow-up for STEMI, cardiac arrest, V-fib and seizure. Having seizure in rapid succession. Patient loses awareness, staring look and shaking in left upper extremity and then right upper extremity. Ativan 2 g IV already given and 2 mg ready, was ordered I again saw the patient around 11 AM and talked to the patient at the bedside. Objective Data Objective Data Vital Signs: Vital Signs Temp Pulse Resp BP Pulse Ox O2 Del Method O2 Flow Rate 97.6 F L 72 21 H 131/97 H 93 Nasal Cannula 3 05/24/23 07:00 05/24/23 07:00 05/24/23 07:00 05/24/23 07:00 05/24/23 07:00 05/24/23 07:00 05/24/23 07:00 FiO2 30 05/24/23 05:00 Oxygen Flow Rate (L/min) 3 Oxygen Delivery Method Nasal Cannula Weight: 268 lb 11.896 oz Body Mass Index (BMI) 35.4 Intake & Output: Intake and Output for Last 24 Hours 05/22/23 05/23/23 05/24/23 23:59 23:59 23:59 Intake Total 1705.42 / 1737.72 677.57 / 677.57 Output Total 1100 / 1100 250 / 250 Balance 605.42 / 637.72 427.57 / 427.57 Lab / Micro Data 05/24/23 04:00 05/24/23 04:00 Labs: Laboratory Results - last 24 hr 05/23/23 07:50: Total Creatine Kinase 70, Triglycerides 480 H 05/23/23 10:00: Troponin I High Sens 62440 H* 05/23/23 10:45: WBC 18.7 H, RBC 4.78, Hgb 14.1, Hct 41.7, MCV 87.2, MCH 29.5, MCHC 33.8, RDW Std Deviation 43.8, RDW Coeff of Sunday 13.6, Plt Count 216, MPV 9.9, Sodium 130 L, Potassium 4.1, Chloride 98, Carbon Dioxide 24.0, Anion Gap 8, BUN 8, Creatinine 1.02, Estim Creat Clear Calc 93.56, Est GFR (MDRD) Af Amer 98, Est GFR (MDRD) Non-Af 81, BUN/Creatinine Ratio 7.8 L, Glucose 423 H, Lactic Acid 1.8, Calcium 8.5, Phosphorus 3.8 05/23/23 13:34: POC Glucose 392 H 05/23/23 18:08: POC Glucose 291 H 05/23/23 21:15: POC Glucose 241 H 05/24/23 01:08: POC Glucose 200 H 05/24/23 04:00: WBC 12.3 H, RBC 4.70, Hgb 13.6, Hct 41.7, MCV 88.7, MCH 28.9, MCHC 32.6, RDW Std Deviation 46.3 H, RDW Coeff of Sunday 14.3, Plt Count 221, MPV 10.3, Immature Gran % (Auto) 0.700, Neut % (Auto) 79.1 H, Lymph % (Auto) 13.8 L, [place] % (Auto) 5.0, Eos % (Auto) 1.0, Baso % (Auto) 0.4, Absolute Neuts (auto) 9.7 H, Absolute Lymphs (auto) 1.70, Nucleated RBC % 0, Sodium 132 L, Potassium 4.2, Chloride 100, Carbon Dioxide 26.0, Anion Gap 6, BUN 13, Creatinine 1.13, Estim Creat Clear Calc 84.46, Est GFR (MDRD) Af Amer 87, Est GFR (MDRD) Non-Af 72, BUN/Creatinine Ratio 11.5, Glucose 218 H, Hemoglobin A1c 11.5 H, Calcium 8.5, Total Bilirubin 0.50, AST 164 H, ALT 47, Alkaline Phosphatase 92, Total Protein 7.2, Albumin 3.1 L, Globulin 4.1, Albumin/Globulin Ratio 0.8 L, Triglycerides 291 H, Cholesterol 128, LDL Cholesterol 44, VLDL Cholesterol 58 H, HDL Cholesterol 26 L, TSH 29.40 H 05/24/23 04:58: POC Glucose 245 H ABG Data ABG results: ABG 05/23/23 05/23/23 09:59 14:02 Specimen Type ART ART Sample Site L Radial L Radial pH 7.22 L 7.34 L Bicarbonate Actual 22.3 24.8 Total CO2 24 26 Base Excess -5 L -1 O2 Saturation 99 100 H O2 % 100 100 ABG pCO2 53.9 H 46.3 H ABG pO2 167 H 427 H* Margarito Test Positive Positive Respiration Rate 14 16 O2 Delivery Device Adult Vent Adult Vent Vent Mode AC AC Tidal Volume 450 450 POC PEEP 5 5 Crit Call To/Read Back Yes Blood Gas Notified Whom BROWN Radiography Diagnostic Testing: Radiology Impression Chest X-Ray 05/23/23 07:55 IMPRESSION: 1. Limited study due to radiopaque patches obscuring portions of the lungs. 2. No suspicious acute chest abnormality. 3. Satisfactory placement of ET tube and OG tube. Electronically Signed: Chau Terry MD at 9:06 EDT , Echocardiogram 05/23/23 10:46 Interpretation Summary Normal LV size. Moderately severe segmental systolic dysfunction (see wall motion). The estimated ejection fraction is 20 %. Stage 1 diastolic dysfunction. Ordering Physician: Aguila Villarreal Referring Physician: CAMILLE VIERA Performed By: Amie Hall RCS Chest X-Ray 05/24/23 05:55 IMPRESSION: 1. Consolidation or atelectasis left lower lobe new since the previous exam. 2. Endotracheal tube tip is 5 cm above the michael. 3. NG tube is in the stomach. Electronically Signed: Bg Cabrera MD at 3:46 EDT , Physical Exam Narrative Patient having seizure looks more focal with altered mental status, complex partial seizure. His brother denies history of previous seizure but he had injury while at work many years ago and required cervical spine and lumbar spine surgery. Exact nature and mechanism of injury unknown to the brother. Physical exam General: Awake alert and oriented times 3 in the morning after extubation. Then, about 8 AM confused, disoriented not responding during seizure episodes. HEENT: Atraumatic, PERRLA, EOMI, Normocephalic Oral: Extubated. Neck: Supple, No JVD, Negative Carotid Bruits Lungs: Air entry diminished in bilateral lung bases. On 3 L of oxygen. On CPAP Cardiovascular: NSR on stucco worker. S1-S2 regular, No murmurs. On stucco worker normal sinus rhythm. Sometimes PVCs/bigeminy. No V-fib during nighttime. Abdomen: Surgical scar in lower back bowel Sounds Present, Soft, Non Tender, Non-Distended. A button like felt on the stomach probably weight loss surgery : No renal angle tenderness. No suprapubic tenderness. Extremities: No edema, Capillary Refill Less than 3 Seconds Skin: No rashes, No breakdown Musculoskeletal: No Tenderness to Palpation of Joints or Extremities not evaluated patient is seated. Back: Surgical scar present over lumbar spine and C-spine. No tenderness over paraspinal muscles. Neurological: Awake. No focal deficit. DTR 2+. Plantars downgoing. Babinski sign negative. During seizure, altered mental status Psych/Mental Status: Flat affect. Assessment & Plan Assessment/Plan (1) ST elevation (STEMI) myocardial infarction: QUALIFIERS: Involved coronary artery: LAD coronary artery Qualified Code(s): I21.02 - ST elevation (STEMI) myocardial infarction involving left anterior descending coronary artery (2) Flash pulmonary edema: PLAN: Plan This 52-year-old gentleman being admitted from ER to [facility] [employer] [employer] and then ICU for c hest pain, NSTEMI with flash pulmonary edema. 1. Anterior wall STEMI complicated with several episodes of ventricular fibrillation, bradycardia and flash pulmonary edema: Patient is being admitted i n ICU after [facility] [employer] [employer] Use. Human Services Manager consulted and discussed with Dr. Lara. Patient had her had long segment of ostial/proximal LAD occluded for which patient balloon angioplasty and stenting. During that time, clots went to diagonal and septal branches for which patient had angioplasty of diagonal. Detail senior marketing data analyst note and Medical Coordinator [employer] Use procedure pending. Patient had 10 to 15% EF. 2D echo ordered. Patient on aspirin, had loading dose of Brilinta, atorvastatin and Integrilin drip. Patient also had bolus of amiodarone and IV heparin bolus. It is unclear whether the patient had lidocaine bolus in Medical [employer] [employer] Use. 05/24: 2D echo was done shows EF 20% with severe segmental wall dysfunction a [facility] Cardiac cath estimation was about 10 to 15%, stage I diastolic dysfunction suggestive of acute systolic and diastolic heart failure. Fasting profile LDL 44, HDL 26. TG 291. TSH high 29.4. 2. Ventricular fibrillation/arrhythmia, Due to STEMI: As mentioned above. The patient on amiodarone drip 0.5 mg/h as recommended by senior marketing data analyst. 05/24: No further episode of ventricular arrhythmia after admission in ICU. Mild PVCs. 3. Shock period Of cardiogenic shock and several episodes of cardiac arrest/V- fib status post CODE BLUE and ACLS and BLS protocol, acute hypoxic respiratory failure due to pulmonary edema and vomiting with suspicion of aspiration: This was in route to ED by EMS and also in [facility] [employer] Use. Patient also on Levophed drip for transient short time. Currently patient's blood pressure is around 150/119, vent supported. Patient is on ventilator. Dry Wall Finisher consulted. Empirically patient started on IV Unasyn. 05/24: Cardiogenic shock has resolved. Patient not on Levophed drip or IV fluid. New onset of seizure, exact etiology type and classification unclear most probably partial complex seizure: Patient had IV Ativan to break down seizure. started on loading dose of IV Keppra [address] head does not show acute intracranial changes. EEG done report pending. SOC neuro consult afterwards. Probable differentials for seizure might be metabolic causes hypoxia, previous injury requiring cervical spine. 4. Diabetes mellitus type 2: Patient NPO. Accu-Cheks every 4 hourly and cover with low sliding scale. A1c 11.5 suggestive of uncontrolled diabetes mellitus. Cardiac and 18 ADA diet. Accu-Chek insulin coverage Humalog sliding scale. Started on 15 units Lantus insulin. 5. Morbid obesit, BMI 36.1 kg/m? obstructive sleep apnea on CPAP: Unclear whe ther patient is adherent to CPAP. Patient also had weight loss surgery. 6. Other comorbidities include injury of head and neck, fall status postsurgery in neck and back, kidney stone, history of laparoscopic from this time injury in the past: I think patient does not follow PCP. Will need to follow-up outpatient Living will/advanced directive/end of life care: Patient does not have living w ill or advanced directive. His next to kin is his fianc?e/significant others, . Pricila Coles. I talked to her twice. Human Services Manager also talked to her and we agreed patient is a guarded prognosis for now. After discussion of benefits/risks procedures involved with full code, DNR CC arrest and DNR CC, she will talk to patient's brothers and his son and will update about the CODE STATUS. For now we will continue full code. I talked to the patient's brother near the bedside. He is next to kin. Agreeable for full code. Discussed the prognosis. Clinical Impression(s) from Imaging Studies Chest X-Ray 05/23/23 07:55 IMPRESSION: 1. Limited study due to radiopaque patches obscuring portions of the lungs. 2. No suspicious acute chest abnormality. 3. Satisfactory placement of ET tube and OG tube. Echocardiogram 05/23/23 10:46 Interpretation Summary Normal LV size. Moderately severe segmental systolic dysfunction (see wall motion). The estimated ejection fraction is 20 %. Stage 1 diastolic dysfunction. Chest X-Ray 05/24/23 05:55 IMPRESSION: 1. Consolidation or atelectasis left lower lobe new since the previous exam. 2. Endotracheal tube tip is 5 cm above the michael. 3. NG tube is in the stomach. Brain CT 05/24/23 08:48 IMPRESSION: Negative Brain CT without contrast. Charges/Coding Visit Charges Inpatient E&M: 58687 Subs Hosp L3
[2023-05-24 09:09] LABS: Bedside Glucose 301 mg/dL (74-106)
--- NOTE | 2023-05-24 09:18 | MRI_ITS ---
STUDY: MRI BRAIN WITHOUT CONTRAST REASON FOR EXAM: Male, 52 years old. New onset seizures TECHNIQUE: Standardized multiplanar fat and water weighted pulse sequences were obtained. COMPARISON: CT brain May 24, 2023. FINDINGS: Normal size of the ventricles and extra-axial spaces for the patient''s age. Normal white matter tracts of the supratentorial brain. There is no evidence for recent intracranial ischemia or other cause of cytotoxic edema on diffusion weighted imaging (DWI). Normal bilateral basal ganglia. Normal thalami. There is no extra-axial fluid accumulation. Normal flow voids within the major intracranial circulation suggesting patency by spin echo criteria. Normal sella turcica, pituitary gland, infundibular stalk, optic chiasm and hypothalamus. Normal tectal plate and pineal gland. Normal midbrain, deny and medulla. Normal cerebellum. Normal basal cisterns. Normal bilateral temporal bones. Normal bilateral internal auditory canals. No demonstrated orbital abnormality, within the constraints of a routine brain study. Normal visualized paranasal sinuses. Normal calvarium and skull base. Normal visualized soft tissue structures. Normal visualized upper cervical spine. MRI/Brain without Contrast IMPRESSION: Normal unenhanced MRI of the brain. Electronically Signed: Ivan Dean MD at 18:29 EDT ,
--- NOTE | 2023-05-24 10:00 | EKG12_ITS ---
Test Reason : AM EK Blood Pressure : / mmHG Vent. Rate : 059 BPM Atrial Rate : 059 BPM P-R Int : 176 ms QRS Dur : 086 ms QT Int : 502 ms P-R-T Axes : -09 -53 123 degrees QTc Int : 496 ms Sinus bradycardia Left axis deviation Low voltage QRS T wave abnormality, consider lateral ischemia , previous anterior infarct Abnormal ECG Confirmed by LESTER MONSIVAIS, ERICKA ([id number]), video effects editor SHADE BRADLEY ([id number]) on 05/25/2023 9:35:04 AM Referred By: Adam Lara Confirmed By:ERICKA BATISTA MD
--- NOTE | 2023-05-24 10:50 | NURSING ---
0835 pt light on, this RN to pt room. rhythmic twitching left hand/arm bent at elbow/staring into space to left, lasting 20 to 30 seconds.He doesn't respond to name, sternal rub or nailbed pressure. Short postictal period (20 to 30 sec) then seizure begins again. 6 or [address] Villarreal stat paged 0840 Ativan 2mg IV push 0842 stroke alert called 0843 Dr. Hughes present, disc seizure activity/integrillin still running 0845 stroke alert cancelled, Ativan 2mg given 0850 DC amiodarone and integrillin per order [address], Dr. Hughes present in room 0915 same seizure activity noted, Ativan 2mg IV push
--- NOTE | 2023-05-24 12:38 | CASEMGMT ---
Addendum entered by Zahira Henry 05/24/23 15:27: Per RN when patient was awake and A&OX3 patient indicated he would want his brother Bg to make medical decisions for him. Zahira LUCIANO Original Note: SW introduced self to patient's brother Bg. Bg said he is doing okay and is fine with decision making for patient. Bg seems to be on good terms with the rest of the family as well. Zahira LUCIANO
--- NOTE | 2023-05-24 13:15 | PN.CARD_ITS ---
Subjective Subjective Patient is extubated. Off pressors. He had seizures this morning. CT brain was done which revealed no intracranial bleed. Integrilin and amiodarone were stopped. Hemodynamically patient is stable at this time. Objective Data Vital Signs: Vital Signs Temp Pulse Resp BP Pulse Ox O2 Del Method O2 Flow Rate 98.7 F 79 12 113/88 H 99 CPAP 2 05/24/23 11:00 05/24/23 11:00 05/24/23 11:00 05/24/23 11:00 05/24/23 11:00 05/24/23 11:00 05/24/23 10:00 FiO2 30 05/24/23 11:00 Oxygen Flow Rate (L/min) 2 Oxygen Delivery Method CPAP Weight: 268 lb 11.896 oz Body Mass Index (BMI) 35.4 Intake & Output: Intake and Output for Last 24 Hours 05/22/23 05/23/23 05/24/23 23:59 23:59 23:59 Intake Total 1705.42 / 1737.72 1068.59 / 1068.59 Output Total 1100 / 1100 650 / 650 Balance 605.42 / 637.72 418.59 / 418.59 Lab / Micro Data 05/24/23 04:00 05/24/23 04:00 Labs: Laboratory Results - last 24 hr 05/23/23 13:34: POC Glucose 392 H 05/23/23 18:08: POC Glucose 291 H 05/23/23 21:15: POC Glucose 241 H 05/24/23 01:08: POC Glucose 200 H 05/24/23 04:00: WBC 12.3 H, RBC 4.70, Hgb 13.6, Hct 41.7, MCV 88.7, MCH 28.9, MC HC 32.6, RDW Std Deviation 46.3 H, RDW Coeff of Sunday 14.3, Plt Count 221, MPV 10.3, Immature Gran % (Auto) 0.700, Neut % (Auto) 79.1 H, Lymph % (Auto) 13.8 L, [place] % (Auto) 5.0, Eos % (Auto) 1.0, Baso % (Auto) 0.4, Absolute Neuts (auto) 9.7 H, Absolute Lymphs (auto) 1.70, Nucleated RBC % 0, Sodium 132 L, Potassium 4.2, Chloride 100, Carbon Dioxide 26.0, Anion Gap 6, BUN 13, Creatinine 1.13, Estim Creat Clear Calc 84.46, Est GFR (MDRD) Af Amer 87, Est GFR (MDRD) Non-Af 72, BUN/Creatinine Ratio 11.5, Glucose 218 H, Hemoglobin A1c 11.5 H, Calcium 8.5, Total Bilirubin 0.50, AST 164 H, ALT 47, Alkaline Phosphatase 92, Total Protein 7.2, Albumin 3.1 L, Globulin 4.1, Albumin/Globulin Ratio 0.8 L, Triglycerides 291 H, Cholesterol 128, LDL Cholesterol 44, VLDL Cholesterol 58 H, HDL Cholesterol 26 L, TSH 29.40 H 05/24/23 04:58: POC Glucose 245 H 05/24/23 08:41: POC Glucose 301 H ABG Data ABG results: ABG 05/23/23 14:02 Specimen Type ART Sample Site L Radial pH 7.34 L Bicarbonate Actual 24.8 Total CO2 26 Base Excess -1 O2 Saturation 100 H O2 % 100 ABG pCO2 46.3 H ABG pO2 427 H* Margarito Test Positive Respiration Rate 16 O2 Delivery Device Adult Vent Vent Mode AC Tidal Volume 450 POC PEEP 5 Crit Call To/Read Back Yes Blood Gas Notified Whom [facility] Cardiology Labs/Tests 05/23/23 14:02: pH 7.34 L, Bicarbonate Actual 24.8, Base Excess -1, O2 Saturation 100 H, ABG pCO2 46.3 H, ABG pO2 427 H*, Margarito Test Positive 05/24/23 04:00: WBC 12.3 H, RBC 4.70, Hgb 13.6, Hct 41.7, MCV 88.7, MCH 28.9, MCHC 32.6, Plt Count 221, MPV 10.3, Immature Gran % (Auto) 0.700, Neut % (Auto) 79.1 H, Lymph % (Auto) 13.8 L, [place] % (Auto) 5.0, Eos % (Auto) 1.0, Baso % (Auto) 0.4, Absolute Neuts (auto) 9.7 H, Nucleated RBC % 0, Sodium 132 L, Potas sium 4.2, Chloride 100, Carbon Dioxide 26.0, Anion Gap 6, BUN 13, Creatinine 1.13, Est GFR (MDRD) Af Amer 87, Est GFR (MDRD) Non-Af 72, BUN/Creatinine Ratio 11.5, Glucose 218 H, Hemoglobin A1c 11.5 H, Calcium 8.5, Total Bilirubin 0.50, Triglycerides 291 H, Cholesterol 128, LDL Cholesterol 44, VLDL Cholesterol 58 H, HDL Cholesterol 26 L Rhythm: EKG: ECHO: Stress Test: Cardiac Cath: PCI: CT Surgery: Holter monitor: EPS: PPM: CXR: Chest CT Scan: Radiography Diagnostic Testing: Radiology Impression Echocardiogram 05/23/23 10:46 Interpretation Summary Normal LV size. Moderately severe segmental systolic dysfunction (see wall motion). The estimated ejection fraction is 20 %. Stage 1 diastolic dysfunction. Ordering Physician: Aguila Villarreal Referring Physician: CAMILLE VIERA Performed By: Amie Hall RCS Chest X-Ray 05/24/23 05:55 IMPRESSION: 1. Consolidation or atelectasis left lower lobe new since the previous exam. 2. Endotracheal tube tip is 5 cm above the michael. 3. NG tube is in the stomach. Electronically Signed: Bg Cabrera MD at 3:46 EDT , Brain CT 05/24/23 08:48 IMPRESSION: Negative Brain CT without contrast. Electronically Signed: Chaparro Hidalgo at 9:12 EDT , Physical Exam Const Constitutional Narrative: Drowsy, arousable HEENT normocephalic Resp normal respiratory effort Cardio regular rhythm Skin no rashes or lesions noted Neuro Neuro Narrative: Drowsy. Moving all extremities. Assessment & Plan Assessment/Plan (1) ST elevation (STEMI) myocardial infarction: QUALIFIERS: Involved coronary artery: LAD coronary artery Qualified Code(s): I21.02 - ST elevation (STEMI) myocardial infarction involving left anterior descending coronary artery PLAN: Treated with drug-eluting stent placement to the LAD. We will start him on beta-adeola and HANH inhibitor. At this time we will keep him on aspirin, Brilinta and statin. (2) Ventricular fibrillation: PLAN: In the setting of anterior ST elevation NM. No further sustained V. tach. (3) Cardiac arrest: PLAN: Secondary to ventricular fibrillation in the setting of ST elevation NM. Stable at this time. (4) LV dysfunction: PLAN: He will need a 2D echo in 3 months to see if he would benefit from an AICD.
[2023-05-24] MEDS: Insulin Glargine-YFGN 100 UNIT/ML Pen 15 UNIT SC (13:39)
--- NOTE | 2023-05-24 13:50 | CASEMGMT ---
ROSY PETERSON Assessment: Face to Face with pt for initial transition planning/care coordination assessment. ROSY PETERSON introduced self and role at [facility], pt is on bipap, nurse at bedside states pt has recently been medicated and pt voiced that he would want his brother to make decisions for him. Pt brother Bg Bailey present in room and consents to assessment. Pt brother lives in [facility], he answered assessment as best as he could. He will consult with other family members tonight to try to clarify more answers. Care providers, pharmacy, and demographics unable to be verified. Pt has another brother Geraldo Bailey who lives in [place] and is on an [place] cruise. Pt also has an adult dtr who lives in [place] and an 18 year old son who lives in [facility]. Admitting Dx: STEMI PCP:Chantal Mercado NP Specialists:Pt brother unsure Preferred Pharmacy: [facility] listed, pt brother unsure Insurance: [employer] Prescription Benefit: yes LNOK: Bg Bailey,brother; Geraldo Bailey, brother; Pricila Coles, ex sig other- pt brother is unsure if she wants to be listed and will check with her. Living Arrangements: Pt lives alone in a single story home. Pt was I in ADL's prior to hospitalization. Transportation: Pt drives self and drives [employer] to and from work for his work. DME/HHC/SNF: Pt has a CPAP at home, brother unsure if pt has a BGM. No known previous HHC or SNF stays. Pt brother states he will speak to his other brother sue. He would like pt to go to his home, [facility] recovery which is in [place]. CM to follow. Advised pt brother to ask CM if any further question/concerns/needs arise, voices understanding. Pt Brother Goal: To brother Sara home in [place] post hospitalization Plan: TBD
[2023-05-24 14:03] LABS: Bedside Glucose 215 mg/dL (74-106)
--- NOTE | 2023-05-24 15:19 | CASEMGMT ---
In-network tertiary facilities per [facility] [employer] [facility] website: [facility], [facility], [facility], [facility], [facility], , [facility], [place], [facility], [place], [facility] Ted Gunn RN CM
--- NOTE | 2023-05-24 16:05 | NURSING ---
ROSY Boykin monitored pt in MRI. Pt yelling throughout MRI, multiple attempts to redirect pt which were unsuccessful. Pt removed the head coil while in the MRI and pt was removed from MRI machine and placed back on ICU bed with monitor.
[2023-05-24] MEDS: 0.9% Saline Lock 10 ML Syringe IV (17:10)
[2023-05-24 17:56] LABS: Bedside Glucose 165 mg/dL (74-106)
--- NOTE | 2023-05-24 19:00 | PCM.DC.SUM ---
Providers Date of Admission: 05/23/23 Date of Discharge: 05/24/23 Primary Care Physician: MONE Solis Consultations 05/23/23 10:04 Consult: Mushroom Picker / Pulmonary Medicine Routine Consulting Provider: Pulmonary Medicine carmen [place] Reason for Consult: vent management EMERGENT Consult: No MD Notified: Yes Date Notified: 05/23/23 Time Notified: 10:04 Method of Notification: Text Reason For Visit: stemi Diagnosis Discharge Diagnosis (1) ST elevation (STEMI) myocardial infarction: Status: Acute Code(s): I21.3 - ST elevation (STEMI) myocardial infarction of unspecified site Qualifiers: Involved coronary artery: LAD coronary artery Qualified Code(s): I21.02 - ST elevation (STEMI) myocardial infarction involving left anterior descending coronary artery (2) Ventricular fibrillation: Status: Acute Code(s): I49.01 - Ventricular fibrillation (3) Cardiac arrest: Status: Acute Code(s): I46.9 - Cardiac arrest, cause unspecified (4) LV dysfunction: Status: Acute Code(s): I51.9 - Heart disease, unspecified Plan This 52-year-old gentleman being 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 1. Anterior wall STEMI complicated with several episodes of ventricular fibrillation, bradycardia and flash pulmonary edema: Patient is being admitted in ICU after [employer]. Roof Slater consulted and discussed with Dr. Lara. Patient had her had long segment of ostial/proximal LAD occluded for which patient balloon angioplasty and stenting. During that time, clots went to diagonal and septal branches for which patient had angioplasty of diagonal. Detail museum technician note and Auto Fleet Maintenance Manager procedure pending. Patient had 10 to 15% EF. 2D echo ordered. Patient on aspirin, had loading dose of Brilinta, atorvastatin and Integrilin drip. Patient also had bolus of amiodarone and IV heparin bolus. It is unclear whether the patient had lidocaine bolus in [employer]. 05/24: 2D echo was done shows EF 20% with severe segmental wall dysfunction although Cardiac cath estimation was about 10 to 15%, stage I diastolic dysfunction suggestive of acute systolic and diastolic heart failure. Fasting profile LDL 44, HDL 26. TG 291. TSH high 29.4. 2. Ventricular fibrillation/arrhythmia, Due to STEMI: As mentioned above. The patient on amiodarone drip 0.5 mg/h as recommended by museum technician. 05/24: No further episode of ventricular arrhythmia after admission in ICU. Mild PVCs. 3. Shock period Of cardiogenic shock and several episodes of cardiac arrest/V-fib status post CODE BLUE and ACLS and BLS protocol, acute hypoxic respiratory failure due to pulmonary edema and vomiting with suspicion of aspiration: This was in route to ED by EMS and also in [employer]. Patient also on Levophed drip for transient short time. Currently patient's blood pressure is around 150/119, vent supported. Patient is on ventilator. Mushroom Picker consulted. Empirically patient started on IV Unasyn. 05/24: Cardiogenic shock has resolved. Patient not on Levophed drip or IV fluid. 4. New onset of seizure, exact etiology type and classification unclear most probably partial complex seizure, possible status epilepticus: Patient had IV Ativan to break down seizure. started on loading dose of IV Keppra [address] head does not show acute intracranial changes. EEG done report pending. SOC neuro consult afterwards. Probable differentials for seizure might be metabolic causes hypoxia, previous injury requiring cervical spine. Patient had CT head which did not show acute intracranial abnormality. EEG was reported unremarkable waking drowsy likely sleep EEG. No focal lateralized or epileptiform abnormalities seen. MRI brain without contrast done and reported normal. Patient again had seizure about 3 PM before MRI. It lasted for less than a minute. Patient was not responding during seizure episode patient was postictal confused with lethargy and lightly sleeping therefore Ativan not given during MRI. I talked to [facility] special events coordinator for transfer as patient needs continuous EEG monitoring. I talked to the neurologist who advised to give Keppra 2 g stat which was ordered and given. I talked to the manager call center, neurologist and then hospitalist and patient was accepted in hospitalist service in epilepsy monitoring unit. I further talked to the patient's son who agreed for the transfer. Patient was transferred to [facility]. 4. Diabetes mellitus type 2: Patient NPO. Accu-Cheks every 4 hourly and cover with low sliding scale. A1c 11.5 suggestive of uncontrolled diabetes mellitus. Cardiac and 18 ADA diet. Accu-Chek insulin coverage Humalog sliding scale. Started on 15 units Lantus insulin. 5. Morbid obesit, BMI 36.1 kg/m? obstructive sleep apnea on CPAP: Unclear whether patient is adherent to CPAP. Patient also had weight loss surgery. 6. Other comorbidities include injury of head and neck, fall status postsurgery in neck and back, kidney stone, history of laparoscopic from this time injury in the past: I think patient does not follow PCP. Will need to follow-up outpatient Living will/advanced directive/end of life care: Patient does not have living will or advanced directive. His next to kin is his fianc?e/significant others, Ms. Pricila Coles. I talked to her twice. Roof Slater also talked to her and we agreed patient is a guarded prognosis for now. After discussion of benefits/risks procedures involved with full code, DNR CC arrest and DNR CC, she will talk to patient's brothers and his son and will update about the CODE STATUS. For now we will continue full code. I talked to the patient's brother near the bedside. He is next to kin. Agreeable for full code. Discussed the prognosis. Echocardiogram 05/23/23 10:46 Interpretation Summary Normal LV size. Moderately severe segmental systolic dysfunction (see wall motion). The estimated ejection fraction is 20 %. Stage 1 diastolic dysfunction. Brain MRI 05/24/23 09:18 IMPRESSION: Normal unenhanced MRI of the brain. Clinical Impression(s) from Imaging Studies Chest X-Ray 05/23/23 07:55 IMPRESSION: 1. Limited study due to radiopaque patches obscuring portions of the lungs. 2. No suspicious acute chest abnormality. 3. Satisfactory placement of ET tube and OG tube. Echocardiogram 05/23/23 10:46 Interpretation Summary Normal LV size. Moderately severe segmental systolic dysfunction (see wall motion). The estimated ejection fraction is 20 %. Stage 1 diastolic dysfunction. Chest X-Ray 05/24/23 05:55 IMPRESSION: 1. Consolidation or atelectasis left lower lobe new since the previous exam. 2. Endotracheal tube tip is 5 cm above the michael. 3. NG tube is in the stomach. Brain CT 05/24/23 08:48 IMPRESSION: Negative Brain CT without contrast. Medications at Discharge Home Medications metformin 500 mg tablet,extended release 24 hr 1,000 mg PO BID 11/01/19 dulaglutide 1.5 mg/0.5 mL subcutaneous pen injector (Trulicity) 1.5 mg SQ QWEEK 11/26/20 cyclobenzaprine 10 mg tablet 10 mg PO BID PRN MUSCLE SPASMS 01/14/21 atorvastatin 40 mg tablet 40 mg PO DAILY 06/08/21 escitalopram oxalate 20 mg tablet (Lexapro) 20 mg PO DAILY 06/08/21 gabapentin 400 mg capsule 400 mg PO TID 06/08/21 oxycodone-acetaminophen 5 mg-325 mg tablet 1 - 2 tab PO Q6H PRN PRN Pain 06/08/21 doxycycline monohydrate 100 mg capsule 100 mg PO BID #20 caps 06/17/21 Physical Exam Narrative Patient was seen in afternoon. Patient had seizure and was lethargy/obtunded in between seizure. He did not return to the baseline as he was seen after extubation in the morning around 7 AM. Therefore suspicion for status epilepticus. Did physical examination finding in progress note of the same date. Weight / BMI Weight Weight: 268 lb 11.896 oz Body Mass Index (BMI) 35.4 ABG / Lab / Microbiology Data 05/24/23 04:00 05/24/23 04:00 Laboratory: Laboratory Results - last 24 hr 05/24/23 04:00: Hemoglobin A1c 11.5 H 05/24/23 08:41: POC Glucose 301 H 05/24/23 13:36: POC Glucose 215 H 05/24/23 17:31: POC Glucose 165 H 05/24/23 21:40: POC Glucose 175 H Microbiology: Microbiology 05/23/23 09:23 Sputum, Induced/Lukens Gram Stain - Final Radiography Diagnostic Testing: Radiology Impression Brain CT 05/24/23 08:48 IMPRESSION: Negative Brain CT without contrast. Electronically Signed: Chaparro Hidalgo, at 9:12 EDT , Brain MRI 05/24/23 09:18 IMPRESSION: Normal unenhanced MRI of the brain. Electronically Signed: Ivan Dean MD at 18:29 EDT , Meaningful Use Info Meaningful Use Diagnoses (Choose all that apply): None applicable Discharge Plan Admission Admit Date/Time: 05/23/23 09:32 Attending Provider: Aguila Villarreal Primary Care Provider: Chantal Barron NP Consulting Providers: Sukhjinder Andres; Rigoberto Hughes; Jeff Gates; Pa Vasques; Aisha Marcos NP; Adam Lara Discharge Orders/Prescriptions Prescriptions: No Action metformin 500 MG tablet extended release 24 hr 1,000 mg PO BID Trulicity 1.5 MG/0.5 ML pen injector 1.5 mg SQ QWEEK cyclobenzaprine 10 MG tablet 10 mg PO BID PRN (Reason: MUSCLE SPASMS) atorvastatin 40 mg tablet 40 mg PO DAILY Patient Comments: TAKE 1 TABLET BY MOUTH ONCE DAILY AT BEDTIME FOR CHOLESTEROL gabapentin 400 mg capsule 400 mg PO TID Patient Comments: TAKE 1 CAPSULE BY MOUTH THREE TIMES DAILY oxycodone-acetaminophen 5-325 mg tablet 1 - 2 tab PO Q6H PRN PRN (Reason: Pain) Patient Comments: TAKE 1 TO 2 TABLETS BY MOUTH EVERY 6 HOURS NEEDED FOR PAIN escitalopram oxalate [Lexapro] 20 mg tablet 20 mg PO DAILY Patient Comments: TAKE 1 TABLET BY MOUTH ONCE DAILY doxycycline monohydrate 100 mg capsule 100 mg PO BID Qty: 20 0RF Referrals / Follow Up: Chantal Barron NP, AIRCRAFT LANDING GEAR INSPECTOR-C [Primary Care Provider] - Disposition Disposition (needs filled in before D/C Order can be placed): Acute Care Hospital Charges/Coding Visit Charges Inpatient E&M: 61556 Disch Hosp >30min
[2023-05-24 22:03] LABS: Bedside Glucose 175 mg/dL (74-106)
== END 2023-05-24 22:49 | disposition short-term general hospital (02) | DRG 174 ==
LOC: ED 07:42 → ICU 08:07
PROVIDERS: Specialist; Admitting Provider Internal Medicine; Emergency Provider Emergency Medicine; PCP Registered Nurse; Visit Provider Internal Medicine
DX: I21.02 ST elevation (STEMI) myocardial infarction involving left anterior descending coronary artery (principal); J96.01 Acute respiratory failure with hypoxia; I46.2 Cardiac arrest due to underlying cardiac condition; R57.0 Cardiogenic shock; G40.201 Localization-related (focal) (partial) symptomatic epilepsy and epileptic syndromes with complex partial seizures, not intractable, with status epilepticus; I50.41 Acute combined systolic (congestive) and diastolic (congestive) heart failure; I49.01 Ventricular fibrillation; E11.65 Type 2 diabetes mellitus with hyperglycemia; E66.01 Morbid (severe) obesity due to excess calories; G47.33 Obstructive sleep apnea (adult) (pediatric); F17.210 Nicotine dependence, cigarettes, uncomplicated; Z68.36 Body mass index [BMI] 36.0-36.9, adult; Z79.84 Long term (current) use of oral hypoglycemic drugs; Z79.899 Other long term (current) drug therapy
CPT/HCPCS: 31500; 31720; 36600; 70450; 70551; 71045; 80048; 80053; 80061; 82550; 82803; 82962; 83036; 83605; 83735; 83880; 84100; 84443; 84478; 84484; 85025; 85027; 85610; 85730; 87070; 87077; 87186; 87205; 92921; 92941; 93005; 93306; 93458; 94002; 94003; 95819; 99252; 99284; J7030; J7040; J7050; Q9957; A4216; C1725; C1769; C1874; C1887; C1894; C8929; C9606; G0463; J0295; J1327; Q9967

== ENCOUNTER 2023-07-09 22:06 | Emergency (ER) | payer MEDICAID, SELFPAY ==
[2023-07-09 22:08] VITALS: BP 122/86; PULSE 78; RESP 32; TEMP 36.4; O2SAT 100; BMI 35.0
[2023-07-09 22:12] VITALS: RESP 20; O2SAT 10
--- NOTE | 2023-07-09 22:14 | EKG12_ITS ---
Test Reason : DYSRHYTHMIA Blood Pressure : / mmHG Vent. Rate : 069 BPM Atrial Rate : 000 BPM P-R Int : 000 ms QRS Dur : 096 ms QT Int : 372 ms P-R-T Axes : 000 -58 062 degrees QTc Int : 398 ms Accelerated Junctional rhythm Left axis deviation Low voltage QRS Incomplete right bundle branch block Septal infarct , age undetermined Abnormal ECG Confirmed by ERICKA BATISTA MD ([id number]), dictionary editor ALEXANDRA AHUMADA ([id number]) on 07/18/2023 7:25:07 AM Referred By: Confirmed By:ERICKA BATISTA MD
[2023-07-09 22:16] VITALS: O2SAT 100
--- NOTE | 2023-07-09 22:21 | ED.VIS.DYS ---
HPI History of Present Illness Chief Complaint: Chest Pain Narrative Narrative: 52-year-old male presenting with shortness of breath. He has a history of tobacco use. He states to quit smoking. He has a history of STEMI and he states I have a maker. [facility] when he became short of breath. He states started with some chest pressure but he does not have any chest pain currently. He was otherwise healthy prior to this. No fevers or chills. No nausea or vomiting. Patient states he does not do breathing treatments at home but does have an albuterol inhaler. [facility] Medical History Arteriosclerosis of coronary artery in patient with history of myocardial infarction (05/23/23) Arthritis Back pain Cardiac arrest CPAP (continuous positive airway pressure) dependence Diabetes Diabetes mellitus History of steroid therapy Fabienne's syndrome Injury of back Injury of head and neck Kidney stones LV dysfunction Obesity (BMI 30-39.9) IZAIAH (obstructive sleep apnea) Sleep apnea Smoker ST elevation (STEMI) myocardial infarction (05/23/23) Surgical wound dehiscence Tobacco abuse Tobacco abuse counseling Urinary incontinence Wears dentures Home Medications metformin 500 mg tablet,extended release 24 hr 1,000 mg PO BID 11/01/19 [History Last Taken 11/05/19 05:30] dulaglutide 1.5 mg/0.5 mL subcutaneous pen injector (Trulicity) 1.5 mg SQ QWEEK 11/26/20 [History Last Taken 06/01/21] cyclobenzaprine 10 mg tablet 10 mg PO BID PRN MUSCLE SPASMS 01/14/21 [History Last Taken Unknown] atorvastatin 40 mg tablet 40 mg PO DAILY 06/08/21 [History Last Taken Unknown] escitalopram oxalate 20 mg tablet (Lexapro) 20 mg PO DAILY 06/08/21 [History Last Taken Unknown] gabapentin 400 mg capsule 400 mg PO TID 06/08/21 [History Last Taken 06/09/21] oxycodone-acetaminophen 5 mg-325 mg tablet 1 - 2 tab PO Q6H PRN PRN Pain 06/08/21 [History Last Taken Unknown] doxycycline monohydrate 100 mg capsule 100 mg PO BID #20 caps 06/17/21 [Rx Last Taken Unknown] prednisone 50 mg tablet 50 mg PO DAILY #5 tabs 07/10/23 [Rx Last Taken Unknown] Allergy/AdvReac Type Severity Reaction Status Date / Time coconut Allergy Swelling Verified 07/09/23 22:08 Sulfa (Sulfonamide Allergy Swelling Verified 07/09/23 22:08 Antibiotics) Surgical History History of incision and drainage Hx of abdominal surgery Hx of anterior cruciate ligament surgery Hx of arthroscopic knee surgery Hx of carpal tunnel repair Hx of colonoscopy Hx of decompressive lumbar laminectomy Hx of elbow surgery Hx of laparoscopic gastric banding Hx of neck surgery Hx of rotator cuff surgery Stented coronary artery (05/23/23) Social History Smoking Status: Light Smoker (<10/day) substance use type: does not use ROS ROS ED Review of Systems ROS Unobtainable: due to encephalopathy Constitutional Constitutional ED: Reports chills and fever(s) Eyes Eyes: Denies change in vision or diplopia ENT ENT ED: Denies rhinorrhea or sore throat Cardiovascular Cardiovascular: Reports chest pain Respiratory/Chest Respiratory/Chest: Reports dyspnea and dyspnea on exertion Gastrointestinal Gastrointestinal: Denies abdominal pain, nausea or vomiting Genitourinary Genitourinary ED: Denies dysuria or hematuria Musculoskeletal Musculoskeletal: Denies arthralgias or back pain Integumentary Denies abscess Neurologic Neurologic: Denies headache(s) or paresthesias Psychiatric Psychiatric: Denies anxiety or depression EXAM Physical Exam Const Vital Signs: 07/09/23 22:08 07/09/23 22:12 07/09/23 22:12 Temperature 97.6 F L Temperature Source Axillary Pulse Rate 78 Respiratory Rate 32 H 20 H Respiratory Effort Short of Breath Respiratory Pattern Tachypnea Blood Pressure 122/86 H Blood Pressure Mean 98 Pulse Ox 100 10 Oxygen Delivery Method Room Air Bi-pap Oxygen Flow Rate (L/min) Fraction of Inspired Oxygen (FIO2) 40 07/09/23 22:16 07/09/23 22:44 07/09/23 22:56 Temperature Temperature Source Pulse Rate 73 76 Respiratory Rate 26 H 15 Respiratory Effort Respiratory Pattern Tachypnea Blood Pressure 110/74 Blood Pressure Mean 86 Pulse Ox 100 98 100 Oxygen Delivery Method Bi-pap Bi-pap Oxygen Flow Rate (L/min) Fraction of Inspired Oxygen (FIO2) 40 40 07/09/23 22:44 07/09/23 23:07 07/10/23 00:00 Temperature Temperature Source Pulse Rate 77 82 76 Respiratory Rate 18 16 17 Respiratory Effort Respiratory Pattern Normal Blood Pressure 112/84 H 105/70 Blood Pressure Mean 93 81 Pulse Ox 97 96 Oxygen Delivery Method Nasal Cannula Room Air Oxygen Flow Rate (L/min) 2 Fraction of Inspired Oxygen (FIO2) Positive well nourished General Appearance ED: NAD HEENT Reports moist mucous membranes Eyes PERRL and EOMs intact bilaterally Resp Resp Narrative: Tachypneic Auscultation: wheezes inspiratory wheezes and throughout Cardio regular rate and regular rhythm Neuro oriented x3 and CN's II-XII intact bilaterally Motor Exam: strength 5/5 throughout Psych mental status grossly normal Skin no wounds and skin turgor normal MDM MDM MDM Narrative Medical decision making narrative: Patient presenting with shortness of breath. His oxygen was normal however his work of breathing was labored. He was put on BiPAP prior to me seeing the patient. He states this is helping. On exam he is wheezing. He is given Solu-Medrol and breathing treatments. Differential includes acute coronary syndrome, CHF, pneumonia, COPD exacerbation, viral syndrome, PE. CBC will be obtained to assess white blood cell count, hemoglobin, platelets. BMP to assess renal function electrolytes. Troponin EKG to rule out ischemia or dysrhythmia. Chest x-ray to rule out pneumonia. D-dimer will be used to assess for PE. CBC and BMP unremarkable. High-sensitivity troponin 11. EKG on my interpretation appears to be sinus rhythm with a ventricular rate of 69 bpm without sign of ischemic change. Chest x-ray my interpretation is no acute process. Delta troponin came back at 11. It was reported to me that the patient had a couple of seconds where his thought he had a seizure. Apparently he was awake and alert during this and his leg was shaking. After talking to them after his last MRI he had some kind of seizure history which she is not on any medication for. It sounds like absence seizures. We did obtain a CT of the brain which was negative. At this point I feel he is stable for discharge he will follow-up with neurology that he seen before for this. He is also given a prednisone burst due to his wheezing and likely undiagnosed COPD. He is currently feeling much better and is off of oxygen. Wheezing has improved Impression: 1. Acute bronchitis 2. History of seizure 3. Chest pain Lab Data Labs: Laboratory Results - last 24 hr 07/09/23 07/10/23 22:18 00:30 WBC 8.5 RBC 4.59 L Hgb 13.8 Hct 41.1 MCV 89.5 MCH 30.1 MCHC 33.6 RDW Std Deviation 48.1 H RDW Coeff of Sunday 14.6 Plt Count 249 MPV 10.1 Immature Gran % (Auto) 0.400 Neut % (Auto) 54.4 Lymph % (Auto) 37.1 [place] % (Auto) 5.4 Eos % (Auto) 2.1 Baso % (Auto) 0.6 Absolute Neuts (auto) 4.6 Absolute Lymphs (auto) 3.14 Nucleated RBC % 0 D-Dimer Quant (PE/DVT) 0.30 Sodium 135 L Potassium 3.6 Chloride 105 Carbon Dioxide 24.0 Anion Gap 6 BUN 15 Creatinine 0.95 Estim Creat Clear Calc 100.46 Est GFR (MDRD) Af Amer 106 Est GFR (MDRD) Non-Af 88 BUN/Creatinine Ratio 15.9 Glucose 157 H Calcium 9.3 Troponin I High Sens 11 11 Radiography Diagnostic Testing: Clinical Impression(s) from Imaging Studies Brain CT 07/09/23 22:32 IMPRESSION: No significant interval change. No acute intracranial abnormality. Electronically Signed: Alireza Barry MD at 23:58 EDT Reading Location ID and State: [facility] / [place] Tel , Service support , Chest X-Ray 07/09/23 22:32 IMPRESSION: No acute cardiopulmonary disease process identified. Electronically Signed: Alireza Barry MD at 23:07 EDT , Discharge Plan Triage Chief Complaint: Chest Pain ED Provider: Neeraj Love Dx/Rx/DC Orders Instructions: ED Chest Pain, Noncardiac, ED COPD Flare Prescriptions: New prednisone 50 mg tablet 50 mg PO DAILY Qty: 5 0RF No Action metformin 500 MG tablet extended release 24 hr 1,000 mg PO BID Trulicity 1.5 MG/0.5 ML pen injector 1.5 mg SQ QWEEK cyclobenzaprine 10 MG tablet 10 mg PO BID PRN (Reason: MUSCLE SPASMS) atorvastatin 40 mg tablet 40 mg PO DAILY Patient Comments: TAKE 1 TABLET BY MOUTH ONCE DAILY AT BEDTIME FOR CHOLESTEROL gabapentin 400 mg capsule 400 mg PO TID Patient Comments: TAKE 1 CAPSULE BY MOUTH THREE TIMES DAILY oxycodone-acetaminophen 5-325 mg tablet 1 - 2 tab PO Q6H PRN PRN (Reason: Pain) Patient Comments: TAKE 1 TO 2 TABLETS BY MOUTH EVERY 6 HOURS NEEDED FOR PAIN escitalopram oxalate [Lexapro] 20 mg tablet 20 mg PO DAILY Patient Comments: TAKE 1 TABLET BY MOUTH ONCE DAILY doxycycline monohydrate 100 mg capsule 100 mg PO BID Qty: 20 0RF Primary Care Provider: Chantal Barron NP Referrals: Chantal Barron NP, GOODWILL REPRESENTATIVE-C [Primary Care Provider] - Disposition Disposition: Home, Self Care
[2023-07-09 22:27] LABS: Absolute Lymphocyte Count 3.14 X10^3/uL (0.83-4.51); Absolute Neutrophil Count 4.6 X10^3/uL (2.0-7.7); Basophil# 0.05 X10^3/uL; Basophil% 0.6 % (0-1); Eosinophil# 0.18 X10^3/uL; Eosinophils% 2.1 % (0-5); Hematocrit 41.1 % (40-54); Hemoglobin 13.8 g/dL (13.0-16.5); Lymphocyte # 3.14 X10^3/ul (0.83-4.51); Lymphocyte % 37.1 % (19-41); Mean Corp Hgb Conc 33.6 g/dL (32-36); Mean Corpuscular Hgb 30.1 pg (27.0-32.0); Mean Corpuscular Volume 89.5 fL (80-94); Mean Platelet Vol. 10.1 fl (6.2-12.0); Monocyte# 0.46 X10^3/uL; Monocyte% 5.4 % (0-10); NRBC Flagged by Analyzer 0 % (0-5); Neutrophil % 54.4 % (47-70); Platelet Count 249 K/mm3 (150-450); RBC Distribution Width CV 14.6 % (11.6-14.6); RBC Distribution Width SD 48.1 fl (35.1-43.9); Red Blood Count 4.59 M/mm3 (4.6-6.2); White Blood Count 8.5 K/mm3 (4.4-11.0)
--- NOTE | 2023-07-09 22:32 | CT_ITS ---
EXAM: CT HEAD WITHOUT INTRAVENOUS CONTRAST CLINICAL INDICATION: Seizure TECHNIQUE: Multiple axial images were obtained of the head without intravenous contrast. This CT exam was performed using one or more of the following dose reduction techniques: automated exposure control, adjustment of the mA and/or kV according to patient size, and/or use of iterative reconstruction technique. RADIATION DOSE: Total DLP: 829.85 mGy-cm. COMPARISON: Cranial CT and MRI of 05/24/2023. FINDINGS: BRAIN AND EXTRA-AXIAL SPACES: Right lateral ventricle remains slightly larger than the left, a normal variant. No hydrocephalus or midline shift. No intra- or extra-axial hemorrhage. No evidence of acute infarct. No intracranial mass or mass effect. There is preservation of the anderson/white matter interface. Posterior fossa structures are unremarkable. Basal cisterns are patent. BONES/JOINTS: Unremarkable. No discrete lytic or blastic abnormalities. No linear or depressed skull fracture. SOFT TISSUES: Stable hazy density within the subcutaneous fat overlying the posterior parietal bones at the midline, consistent with scarring. No scalp hematoma. VASCULATURE: Atherosclerotic vascular calcification is present. Middle cerebral arteries are not hyperdense. SINUSES: Incidental retention cysts within the left maxillary antrum. No paranasal sinus air-fluid levels. MASTOID AIR CELLS: Unremarkable. Clear. ORBITS: Visualized globes, extraocular muscles, optic nerves and retrobulbar fat appear unremarkable. CT/Brain/Head without Contrast IMPRESSION: No significant interval change. No acute intracranial abnormality. Electronically Signed: Alireza Barry MD at 23:58 EDT ,
--- NOTE | 2023-07-09 22:32 | RAD_ITS ---
EXAM: XR CHEST, 1 VIEW CLINICAL INDICATION: chest pain TECHNIQUE: Frontal view of the chest. COMPARISON: Previous chest radiographs of 05/23/2023 and 09/02/2021. FINDINGS: LUNGS AND PLEURAL SPACES: Chronic fibrotic changes noted in the lower lungs, unchanged as compared with studies dating back to 2020. No superimposed acute pulmonary infiltrates or pleural effusion. No pneumothorax. HEART: Heart size is within normal limits with normal pulmonary vasculature. Coronary artery stent material is present. MEDIASTINUM: Thoracic aorta remains minimally elongated. No mediastinal widening. BONES/JOINTS: Thoracic degenerative spurring. No acute osseous abnormality. SOFT TISSUES: Unremarkable. TUBES, LINES AND DEVICES: Catheter material loops over the left upper abdominal quadrant. ET tube and NG tube seen on the study of 05/19 have been removed. RAD/Chest 1 View (Portable) IMPRESSION: No acute cardiopulmonary disease process identified. Electronically Signed: Alireza Barry MD at 23:07 EDT ,
[2023-07-09] MEDS: MethylPREDNISolone 125 MG/2 ML Vial IV (22:33)
[2023-07-09 22:44] VITALS: PULSE 73; PULSE 77; RESP 12; RESP 18; RESP 26; O2SAT 98
[2023-07-09] MEDS: Albuterol 2.5 MG/3 ML VIAL.NEB. INHALATION (22:44)
[2023-07-09] MEDS: Ipratropium/Albuterol Sulfate 3 ML AMPUL.NEB INHALATION (22:44)
[2023-07-09 22:45] LABS: Anion Gap 6 (5-15); BUN 15 mg/dL (7-18); BUN/Creat Ratio 15.9 RATIO (10-20); Calcium,Total 9.3 mg/dL (8.5-10.1); Chloride 105 mmol/L (98-107); Creatinine, Serum 0.95 mg/dL (0.70-1.30); EST Glomerular Filtration Rate 88 mL/min (>60); Est Glom Filt Rate - Afr Amer 106 mL/min (>60); Estimated Creatinine Clearance 100.46 ml/min; Glucose 157 mg/dL (74-106); Potassium 3.6 mmol/L (3.5-5.1); Sodium Level 135 mmol/L (136-145); Troponin-I HS (w/2H Reflex) 11 pg/mL (3.0-78.0)
[2023-07-09 22:56] VITALS: BP 110/74; PULSE 76; RESP 15; O2SAT 100
[2023-07-09 23:07] VITALS: BP 112/84; PULSE 82; RESP 16; O2SAT 97
--- NOTE | 2023-07-09 23:07 | CPS ---
x1 Albuterol given to pt. in ER as well
--- NOTE | 2023-07-09 23:07 | CPS ---
Pt. placed on 2L NC. Maintaining appropriate oxygenation status, and his mild respiratory distress has been resolved.
[2023-07-10] VITALS: BP 105/70; PULSE 76; RESP 17; O2SAT 96
[2023-07-10 00:23] LABS: Reflex Troponin-HS? (from REC) Y
[2023-07-10 00:58] LABS: Troponin-I HS 11 pg/mL (3.0-78.0)
[2023-07-10 01:21] VITALS: BP 109/93; PULSE 81; RESP 18; O2SAT 95
== END 2023-07-10 01:22 | disposition home or self-care (01) ==
PROVIDERS: Emergency Provider Student in an Organized Health Care Education/Training Program; PCP Registered Nurse; Visit Provider Student in an Organized Health Care Education/Training Program
DX: J20.9 Acute bronchitis, unspecified (principal); G40.909 Epilepsy, unspecified, not intractable, without status epilepticus; E11.9 Type 2 diabetes mellitus without complications; I25.10 Atherosclerotic heart disease of native coronary artery without angina pectoris; R07.9 Chest pain, unspecified; I25.2 Old myocardial infarction; I5A Non-ischemic myocardial injury (non-traumatic); Z79.84 Long term (current) use of oral hypoglycemic drugs; Z79.85 Long-term (current) use of injectable non-insulin antidiabetic drugs; Z99.89 Dependence on other enabling machines and devices; F17.200 Nicotine dependence, unspecified, uncomplicated
CPT/HCPCS: 70450; 71045; 80048; 84484; 85025; 85379; 93005; 94002; 94640; 96374; 99285; A4216

== ENCOUNTER 2023-09-08 07:15 | Emergency (ER) | payer MEDICAID, SELFPAY ==
[2023-09-08 07:16] VITALS: BP 101/74; PULSE 90; RESP 20; TEMP 36.4; O2SAT 95; BMI 33.0
--- NOTE | 2023-09-08 07:34 | RAD_ITS ---
HISTORY: pain. TECHNIQUE: XR Knee Complete 4 Views or More. COMPARISON: 09/18/2020. FINDINGS: BONES : No acute fracture identified. Surgical screws removed from the fibular head. Chronic ossification at the tibial tuberosity. JOINTS: No dislocation. Tricompartmental degenerative changes with mild joint space narrowing and moderate osteophytes. SOFT TISSUES: Anterior soft tissue swelling. RAD/Knee 4 or More Views IMPRESSION: Soft tissue swelling of the left knee without acute fracture or dislocation identified. Mild osteoarthritis. Electronically Signed: Renata Mcnamara MD at 8:27 EST ,
--- NOTE | 2023-09-08 07:35 | EKG12_ITS ---
Test Reason : SOB Blood Pressure : / mmHG Vent. Rate : 081 BPM Atrial Rate : 081 BPM P-R Int : 168 ms QRS Dur : 090 ms QT Int : 354 ms P-R-T Axes : 049 -63 041 degrees QTc Int : 411 ms Normal sinus rhythm Left axis deviation Abnormal ECG Confirmed by BRINDA MONSIVAIS, IHSAN ([id number]), newspaper managing editor ALEXANDRA AHUMADA ([id number]) on 09/12/2023 8:13:36 AM Referred By: ROCCO Confirmed By:DUY PARRY MD
--- NOTE | 2023-09-08 07:36 | EDS_ITS ---
HPI History of Present Illness Chief Complaint: Lower Extremity Injury Informant: patient Narrative Narrative: Patient presents with left knee pain and shortness of breath. 1 week ago when he left cardiac rehab he felt some pain in his left knee. The next morning he had difficulty walking on it and straightening it. Symptoms progressively got better for the next 4 days but then the next morning he sat up and had sharp pain in the left knee and it has been worse ever since. He has had prior knee surgery when he was in high school including a meniscus tear and ACL injury. There was no fall or direct injury to his knee at this time. He has had slight congestion and cough but no fever or chills. He states this morning he feels more short of breath. He was recently seen at a CHF clinic in [place] and started on furosemide. [facility] Medical History Arteriosclerosis of coronary artery in patient with history of myocardial infarction (05/23/23) Arthritis Back pain Cardiac arrest CPAP (continuous positive airway pressure) dependence Diabetes Diabetes mellitus History of steroid therapy Fabienne's syndrome Injury of back Injury of head and neck Kidney stones LV dysfunction Obesity (BMI 30-39.9) IZAIAH (obstructive sleep apnea) Sleep apnea Smoker ST elevation (STEMI) myocardial infarction (05/23/23) Surgical wound dehiscence Tobacco abuse Tobacco abuse counseling Urinary incontinence Wears dentures Home Medications metformin 500 mg tablet,extended release 24 hr 1,000 mg PO BID 11/01/19 [History Last Taken 11/05/19 05:30] dulaglutide 1.5 mg/0.5 mL subcutaneous pen injector (Trulicity) 1.5 mg SQ QWEEK 11/26/20 [History Last Taken 06/01/21] cyclobenzaprine 10 mg tablet 10 mg PO BID PRN MUSCLE SPASMS 01/14/21 [History Last Taken Unknown] atorvastatin 40 mg tablet 40 mg PO DAILY 06/08/21 [History Last Taken Unknown] escitalopram oxalate 20 mg tablet (Lexapro) 20 mg PO DAILY 06/08/21 [History Last Taken Unknown] gabapentin 400 mg capsule 400 mg PO TID 06/08/21 [History Last Taken 06/09/21] oxycodone-acetaminophen 5 mg-325 mg tablet 1 - 2 tab PO Q6H PRN PRN Pain 06/08/21 [History Last Taken Unknown] doxycycline monohydrate 100 mg capsule 100 mg PO BID #20 caps 06/17/21 [Rx Last Taken Unknown] prednisone 50 mg tablet 50 mg PO DAILY #5 tabs 07/10/23 [Rx Last Taken Unknown] hydrocodone-acetaminophen 5-325mg 5mg-325mg 1 tab PO Q6H PRN PRN Pain 3 days #10 TABLETS 09/08/23 [Rx Last Taken Unknown] prednisone 20 mg tablet 40 mg (2 x 20 mg) PO DAILY #10 tabs 09/08/23 [Rx Last Taken Unknown] Allergy/AdvReac Type Severity Reaction Status Date / Time coconut Allergy Swelling Verified 09/08/23 07:16 Sulfa (Sulfonamide Allergy Swelling Verified 09/08/23 07:16 Antibiotics) Surgical History History of incision and drainage Hx of abdominal surgery Hx of anterior cruciate ligament surgery Hx of arthroscopic knee surgery Hx of carpal tunnel repair Hx of colonoscopy Hx of decompressive lumbar laminectomy Hx of elbow surgery Hx of laparoscopic gastric banding Hx of neck surgery Hx of rotator cuff surgery Stented coronary artery (05/23/23) Social History Smoking Status: Current every day smoker tobacco type: cigarettes substance use type: does not use ROS ROS ED Constitutional Constitutional ED: Denies chills or fever(s) Eyes Eyes: Denies change in vision or discharge from eye(s) ENT ENT ED: Denies discharge from eye(s), rhinorrhea or sore throat Cardiovascular Cardiovascular: Denies chest pain or palpitations Respiratory/Chest Respiratory/Chest: Reports cough and dyspnea Gastrointestinal Gastrointestinal: Denies abdominal pain, nausea or vomiting Genitourinary Genitourinary ED: Denies difficulty urinating or dysuria Musculoskeletal Musculoskeletal: Reports extremity pain Integumentary Denies Abrasions or rash Neurologic Neurologic: Denies headache(s) or weakness Psychiatric Psychiatric: Denies anxiety or depression Allergic/Immunologic Allergic/Immunologic ED: Denies lip swelling or urticaria EXAM Physical Exam Const Vital Signs: 09/08/23 07:16 Temperature 97.5 F L Temperature Source Temporal Pulse Rate 90 Respiratory Rate 20 H Blood Pressure 101/74 Blood Pressure Mean 83 Pulse Ox 95 Oxygen Delivery Method Room Air Positive well nourished and well developed General Appearance ED: well developed HEENT Reports moist mucous membranes Eyes EOMs intact bilaterally Chest Wall inspection of chest normal and palpation of chest normal Resp normal respiratory effort and clear to auscultation bilaterally Cardio regular rate and regular rhythm GI non-tender Palpation: soft Extremity Extremity Narrative: Mild tenderness to the anterior knee with no significant joint effusion or edema. Good distal pulses. Neuro oriented x3 Neuro Narrative: Slow purposeful range of motion of the left knee with slight decreased range of motion secondary to pain. Psych mental status grossly normal Skin no rashes or lesions noted MDM MDM MDM Narrative Medical decision making narrative: Patient placed on awake overnight monitor. EKG obtained to evaluate for cardiac arrhythmia/ischemia. Labwork obtained to evaluate for leukocytosis, anemia, and electrolyte derangement. Chest x-ray obtained to evaluate for acute lung pathology, cardiac size, or mediastinal abnormality. History & Record Review Discussion w/independent historian: Patient Additional record(s) reviewed:: Prior inpatient record, Prior ED visit and Prior labs Lab Data Attestation: I reviewed the patient's lab results. Labs: Laboratory Results - last 24 hr 09/08/23 07:56 WBC 7.7 RBC 5.08 Hgb 14.7 Hct 45.1 MCV 88.8 MCH 28.9 MCHC 32.6 RDW Std Deviation 45.0 H RDW Coeff of Sunday 13.8 Plt Count 204 MPV 10.4 Immature Gran % (Auto) 0.300 Neut % (Auto) 63.7 Lymph % (Auto) 26.0 [place] % (Auto) 6.9 Eos % (Auto) 2.6 Baso % (Auto) 0.5 Absolute Neuts (auto) 4.9 Absolute Lymphs (auto) 2.01 Nucleated RBC % 0 D-Dimer Quant (PE/DVT) 0.28 Sodium 134 L Potassium 3.9 Chloride 104 Carbon Dioxide 25.0 Anion Gap 5 BUN 19 H Creatinine 0.94 Estim Creat Clear Calc 100.35 Est GFR (MDRD) Af Amer 107 Est GFR (MDRD) Non-Af 88 BUN/Creatinine Ratio 20.1 H Glucose 195 H Calcium 9.6 Troponin I High Sens 8 B-Natriuretic Peptide 5.7 Radiography Chest X-Ray - ED: 1 View, Read by ED Physician and Chronic Changes Diagnostic Testing: Clinical Impression(s) from Imaging Studies Knee X-Ray 09/08/23 07:34 IMPRESSION: Soft tissue swelling of the left knee without acute fracture or dislocation identified. Mild osteoarthritis. Electronically Signed: Renata Mcnamara MD at 8:27 EST , Chest X-Ray 09/08/23 08:10 IMPRESSION: Nodular opacity in the left midlung, possible focus of pneumonia or large pulmonary nodule. Recommend follow-up or CT. Electronically Signed: Renata Mcnamara MD at 8:26 EST , Chest CT 09/08/23 09:01 IMPRESSION: No pulmonary nodule is seen. Atelectasis at the lung bases. 2.7 cm nodule in the retroareolar region of the right breast. Correlation with ultrasound is recommended. Electronically Signed: Vikash Krishnan MD at 9:44 EST , EKG Initial EKG: Attestation: I personally reviewed and interpreted this EKG as follows: Interpretation: Sinus Rhythm (Sinus 81 with no acute ischemia.) Treatment and Re-Evaluation :: CBC was normal white count 7.7 with a hemoglobin of 14.7. Normal differential. D-dimer is normal at 0.28. Chemistry studies unremarkable other than a glucose of 195. Troponin is normal at 8 and BNP is normal at 5.7. Portable chest x-ray per my interpretation reveals chronic changes with no focal infiltrate. Radiology interpretation is reviewed. They do feel there is a nodule versus focal infiltrate and recommend a CT. Left knee x-ray per my interpretation reveals significant arthritic changes with no acute fracture. Radiology inte rpretation reviewed and agrees. Patient sent for CT scan of the chest. This reveals no evidence of a pulmonary nodule. There is a 2.7 cm nodule in the retroareolar region of the right breast. Follow-up is recommended. Test results are discussed with the patient. He is aware of the nodule in the right chest wall that requires follow-up. In regards to his left knee pain, I will treat him with a burst of steroids and a prescription for [place]. He will be given a cane to help with ambulation. He has seen [facility] in the past and will follow-up with them. He was advised that although his x-ray shows chronic arthritic changes, this does not rule out a ligamentous or meniscal injury. Discharge Plan Triage Chief Complaint: Lower Extremity Injury ED Provider: Sia Juarez Dx/Rx/DC Orders Clinical Impression: Left knee sprain, URI (upper respiratory infection), Dyspnea Instructions: ED Dyspnea, ED Knee Sprain Prescriptions: New prednisone 20 mg tablet 40 mg PO DAILY Qty: 10 0RF hydrocodone-acetaminophen 5-325 mg tablet 1 tab PO Q6H PRN PRN (Reason: Pain) 3 Days Qty: 10 0RF No Action metformin 500 MG tablet extended release 24 hr 1,000 mg PO BID Trulicity 1.5 MG/0.5 ML pen injector 1.5 mg SQ QWEEK cyclobenzaprine 10 MG tablet 10 mg PO BID PRN (Reason: MUSCLE SPASMS) atorvastatin 40 mg tablet 40 mg PO DAILY Patient Comments: TAKE 1 TABLET BY MOUTH ONCE DAILY AT BEDTIME FOR CHOLESTEROL gabapentin 400 mg capsule 400 mg PO TID Patient Comments: TAKE 1 CAPSULE BY MOUTH THREE TIMES DAILY oxycodone-acetaminophen 5-325 mg tablet 1 - 2 tab PO Q6H PRN PRN (Reason: Pain) Patient Comments: TAKE 1 TO 2 TABLETS BY MOUTH EVERY 6 HOURS NEEDED FOR PAIN escitalopram oxalate [Lexapro] 20 mg tablet 20 mg PO DAILY Patient Comments: TAKE 1 TABLET BY MOUTH ONCE DAILY doxycycline monohydrate 100 mg capsule 100 mg PO BID Qty: 20 0RF prednisone 50 mg tablet 50 mg PO DAILY Qty: 5 0RF Primary Care Provider: Chantal Barron NP Referrals: Jack Arechiga DO [Med Staff - Active Staff] - 5-7 Days Chantal Barron NP, DEODORIZER OPERATOR-C [Primary Care Provider] - Disposition Disposition: Home, Self Care
--- NOTE | 2023-09-08 08:10 | RAD_ITS ---
HISTORY: SOB. TECHNIQUE: XR Chest 1 View. COMPARISON: 07/09/2023. FINDINGS: CARDIOMEDIASTINAL BORDERS: Cardiac silhouette within normal limits in size. Mediastinal contour unremarkable. LUNGS: Nodular opacity in the left midlung. Unchanged mild linear left basilar atelectasis or scarring. PLEURA: No pleural effusion or pneumothorax seen. OSSEOUS STRUCTURES: Surgical anchor in the left humeral head. RAD/Chest 1 View (Portable) IMPRESSION: Nodular opacity in the left midlung, possible focus of pneumonia or large pulmonary nodule. Recommend follow-up or CT. Electronically Signed: Renata Mcnamara MD at 8:26 EST ,
[2023-09-08 08:11] LABS: Absolute Lymphocyte Count 2.01 X10^3/uL (0.83-4.51); Absolute Neutrophil Count 4.9 X10^3/uL (2.0-7.7); Basophil# 0.04 X10^3/uL; Basophil% 0.5 % (0-1); Eosinophils% 2.6 % (0-5); Hematocrit 45.1 % (40-54); Hemoglobin 14.7 g/dL (13.0-16.5); Lymphocyte # 2.01 X10^3/ul (0.83-4.51); Mean Corp Hgb Conc 32.6 g/dL (32-36); Mean Corpuscular Hgb 28.9 pg (27.0-32.0); Mean Corpuscular Volume 88.8 fL (80-94); Mean Platelet Vol. 10.4 fl (6.2-12.0); Monocyte# 0.53 X10^3/uL; Monocyte% 6.9 % (0-10); NRBC Flagged by Analyzer 0 % (0-5); Neutrophil # 4.92 X10^3/uL (2.7-7.7); Neutrophil % 63.7 % (47-70); Platelet Count 204 K/mm3 (150-450); RBC Distribution Width CV 13.8 % (11.6-14.6); Red Blood Count 5.08 M/mm3 (4.6-6.2); White Blood Count 7.7 K/mm3 (4.4-11.0)
[2023-09-08 08:21] LABS: D-Dimer Quantitative (DVT/PE) 0.28 FEU/ug/m (0.27-0.49)
[2023-09-08 08:28] LABS: BNP,B-Type NATRIURETIC PEPTIDE 5.7 pg/mL (0-100)
[2023-09-08 08:31] LABS: Anion Gap 5 (5-15); BUN 19 mg/dL (7-18); BUN/Creat Ratio 20.1 RATIO (10-20); Calcium,Total 9.6 mg/dL (8.5-10.1); Chloride 104 mmol/L (98-107); Creatinine, Serum 0.94 mg/dL (0.70-1.30); EST Glomerular Filtration Rate 88 mL/min (>60); Est Glom Filt Rate - Afr Amer 107 mL/min (>60); Estimated Creatinine Clearance 100.35 ml/min; Glucose 195 mg/dL (74-106); Potassium 3.9 mmol/L (3.5-5.1); Sodium Level 134 mmol/L (136-145); Troponin-I HS 8 pg/mL (3.0-78.0)
--- NOTE | 2023-09-08 09:01 | CT_ITS ---
STUDY: CT CHEST WITHOUT CONTRAST REASON FOR EXAM: Male, 53 years old. sob, nodule vs infiltrate on cxr RADIATION DOSAGE (If Supplied By Facility): CTDIvol = ( 19.54 ) mGy, DLP = ( 663.90 ) mGycm TECHNIQUE: Transaxial imaging was performed without the administration of intravenous contrast material. Individualized dose optimization techniques were used for this CT. COMPARISON: Comparison is made with prior radiograph done earlier in the day. FINDINGS: CHEST Small benign-appearing bilateral axillary lymph nodes. There is a 2.7 cm nodule in the retroareolar region of the left breast. No nodule is seen. Mild increased markings at the lung bases suggestive of atelectasis. There is no demonstrated pleural abnormality. There are calcifications of the coronary arteries. There are small lymph nodes within the mediastinum, which are normal in size and morphology most compatible with reactive lymph hyperplasia. Normal hilar regions. Normal unenhanced pulmonary arteries. Normal aorta arch and descending thoracic aorta. There are degenerative changes of the thoracic spine. Gastric cerclage device is seen. CT/Chest without Contrast IMPRESSION: No pulmonary nodule is seen. Atelectasis at the lung bases. 2.7 cm nodule in the retroareolar region of the right breast. Correlation with ultrasound is recommended. Electronically Signed: Vikash Krishnan MD at 9:44 EST ,
== END 2023-09-08 11:20 | disposition home or self-care (01) ==
PROVIDERS: Emergency Provider Emergency Medicine; PCP Registered Nurse; Visit Provider Emergency Medicine
DX: S83.92XA Sprain of unspecified site of left knee, initial encounter (principal); E11.9 Type 2 diabetes mellitus without complications; J06.9 Acute upper respiratory infection, unspecified; I25.10 Atherosclerotic heart disease of native coronary artery without angina pectoris; R26.2 Difficulty in walking, not elsewhere classified; F17.210 Nicotine dependence, cigarettes, uncomplicated; Z79.52 Long term (current) use of systemic steroids; Z98.890 Other specified postprocedural states; X58.XXXA Exposure to other specified factors, initial encounter
CPT/HCPCS: 71045; 71250; 73564; 80048; 83880; 84484; 85025; 85379; 93005; 99284; A4216

== ENCOUNTER 2023-11-28 22:09 | Emergency (ER) | payer MEDICAID, SELFPAY ==
[2023-11-28 22:10] VITALS: BP 124/82; PULSE 84; RESP 16; TEMP 36.3; O2SAT 100; BMI 35.3
[2023-11-28 23:05] LABS: Mucous, Urine 0 SEEN /hpf (<or=2+); Squamous Epithelial Cells - UA 0 SEEN /hpf (0-5)
[2023-11-28 23:06] LABS: Color, Urine Brown (Yellow); Glucose, Dipstick 1000 mg/dl (Normal); Ketone-Dipstick Negative (Negative); Leukocyte Esterase-Dipstick 100 /ul (Negative); Nitrite-Dipstick Positive (Negative); Occult Blood-Urine 250 /ul (Negative); Protein-Dipstick 100 mg/dl (Negative); Specific Gravity, Urine 1.015 (1.002-1.030); Urine Bilirubin Dipstick Negative (Negative); Urine Clarity Cloudy (Clear); Urine Urobilinogen 1 mg/dl (Normal)
--- NOTE | 2023-11-28 23:10 | EDS_ITS ---
HPI History of Present Illness Chief Complaint: Complaint Informant: patient Narrative Narrative: Patient is a 53-year-old male with history of coronary artery disease, prior spinal injury with subsequent Fabienne syndrome and neurogenic bladder (self caths) presenting with hematuria. States that he is never had this before. Notes he is on Brilinta and 81 mg aspirin daily. Denies any traumatic catheterization. States uses a clean catheter every time. He noticed blood in his urine today and came to the emergency room for further evaluation. Denies any fever, chills. Did have a mild episode of left sided abdominal/flank pain today that has since resolved. No other complaints or concerns at this time. [facility] Medical History Arteriosclerosis of coronary artery in patient with history of myocardial infarction (05/23/23) Arthritis Back pain Cardiac arrest CPAP (continuous positive airway pressure) dependence Diabetes Diabetes mellitus History of steroid therapy Fabienne's syndrome Injury of back Injury of head and neck Kidney stones LV dysfunction Obesity (BMI 30-39.9) IZAIAH (obstructive sleep apnea) Sleep apnea Smoker ST elevation (STEMI) myocardial infarction (05/23/23) Surgical wound dehiscence Tobacco abuse Tobacco abuse counseling Urinary incontinence Wears dentures Home Medications metformin 500 mg tablet,extended release 24 hr 1,000 mg PO BID 11/01/19 [History Last Taken 11/05/19 05:30] dulaglutide 1.5 mg/0.5 mL subcutaneous pen injector (Trulicity) 1.5 mg SQ QWEEK 11/26/20 [History Last Taken 06/01/21] cyclobenzaprine 10 mg tablet 10 mg PO BID PRN MUSCLE SPASMS 01/14/21 [History Last Taken Unknown] atorvastatin 40 mg tablet 40 mg PO DAILY 06/08/21 [History Last Taken Unknown] escitalopram oxalate 20 mg tablet (Lexapro) 20 mg PO DAILY 06/08/21 [History Last Taken Unknown] gabapentin 400 mg capsule 400 mg PO TID 06/08/21 [History Last Taken 06/09/21] oxycodone-acetaminophen 5 mg-325 mg tablet 1 - 2 tab PO Q6H PRN PRN Pain 06/08/21 [History Last Taken Unknown] doxycycline monohydrate 100 mg capsule 100 mg PO BID #20 caps 06/17/21 [Rx Last Taken Unknown] prednisone 50 mg tablet 50 mg PO DAILY #5 tabs 07/10/23 [Rx Last Taken Unknown] hydrocodone-acetaminophen 5-325mg 5mg-325mg 1 tab PO Q6H PRN PRN Pain 3 days #10 TABLETS 09/08/23 [Rx Last Taken Unknown] prednisone 20 mg tablet 40 mg (2 x 20 mg) PO DAILY #10 tabs 09/08/23 [Rx Last Taken Unknown] cephalexin 500 mg capsule 500 mg PO Q12 #14 CAPSULES 11/29/23 [Rx Last Taken Unknown] Allergy/AdvReac Type Severity Reaction Status Date / Time coconut Allergy Swelling Verified 11/28/23 22:10 Sulfa (Sulfonamide Allergy Swelling Verified 11/28/23 22:10 Antibiotics) Surgical History History of incision and drainage Hx of abdominal surgery Hx of anterior cruciate ligament surgery Hx of arthroscopic knee surgery Hx of carpal tunnel repair Hx of colonoscopy Hx of decompressive lumbar laminectomy Hx of elbow surgery Hx of laparoscopic gastric banding Hx of neck surgery Hx of rotator cuff surgery Stented coronary artery (05/23/23) Social History Smoking Status: Current some day smoker tobacco type: cigarettes substance use type: does not use ROS ROS ED Constitutional Constitutional ED: Denies chills or fever(s) Respiratory/Chest Respiratory/Chest: Denies cough Gastrointestinal Gastrointestinal: Denies abdominal pain, diarrhea, nausea or vomiting Genitourinary Genitourinary ED: Reports hematuria; Denies dysuria or urinary frequency Musculoskeletal Musculoskeletal: Denies arthralgias, back pain or myalgias Integumentary Denies rash Hematologic/Lymphatic Hematologic/Lymphatic: Reports easy bleeding and easy bruising EXAM Physical Exam Const Vital Signs: 11/28/23 22:10 Temperature 97.4 F L Temperature Source Temporal Pulse Rate 84 Respiratory Rate 16 Blood Pressure 124/82 H Blood Pressure Mean 96 Pulse Ox 100 Positive well nourished and well developed General Appearance ED: well developed and NAD HEENT Reports moist mucous membranes Eyes PERRL Neck supple Resp normal respiratory effort and clear to auscultation bilaterally Cardio regular rate and regular rhythm GI non-tender, non-distended and no masses no CVA tenderness Back/Spine Thoracic Spine / Upper Back: Negative for thoracic spinal tenderness Lumbar Spine / Lower Back: Negative for lumbar spinal tenderness Extremity normal to inspection Neuro oriented x3 Sensorium / Orientation: alert Psych mental status grossly normal Skin Rashes: no rashes MDM MDM MDM Narrative Medical decision making narrative: Patient is evaluated for 1 day of hematuria. Has a history of self cathing secondary to spinal injury. No other complaints and otherwise quite well- appearing. Vital signs are normal. Differential includes UTI, hematuria less likely renal colic given his lack of any significant pain. Will obtain urinalysis and send urine culture to start. Urinalysis is highly consistent with urinary tract infection with positive nitrites, 10-25 white blood cells, rare bacteria and greater than 100 red blood cells. Will send for culture. Started on Keflex. (Patient given Bactrim because of history of allergy to sulfa). Given return precautions. Patient overall well-appearing with no systemic symptoms. Do not think requires any blood work at this time. Discharged home in stable condition. Does not have any CVA tenderness and I do not think needs coverage for pyelonephritis. Lab Data Labs: Laboratory Results - last 24 hr 11/28/23 23:00 Urine Color Brown Urine Clarity Cloudy Urine pH 6.0 Ur Specific [place] 1.015 Urine Protein 100 H Urine Glucose (UA) 1000 H Urine Ketones Negative Urine Occult Blood 250 H Urine Nitrite Positive H Urine Bilirubin Negative Urine Urobilinogen 1 H Ur Leukocyte Esterase 100 H Urine RBC > 100 SEEN Urine WBC 10-25 SEEN Ur Squamous Epith Cells 0 SEEN Urine Bacteria RARE Urine Mucus 0 SEEN Discharge Plan Triage Chief Complaint: Complaint ED Provider: Suzanne Barclay Dx/Rx/DC Orders Clinical Impression: Hematuria, Acute UTI Instructions: ED Hematuria, ED Bladder Infection, Male (Adult) Prescriptions: New cephalexin 500 mg capsule 500 mg PO Q12 Qty: 14 0RF No Action metformin 500 MG tablet extended release 24 hr 1,000 mg PO BID Trulicity 1.5 MG/0.5 ML pen injector 1.5 mg SQ QWEEK cyclobenzaprine 10 MG tablet 10 mg PO BID PRN (Reason: MUSCLE SPASMS) atorvastatin 40 mg tablet 40 mg PO DAILY Patient Comments: TAKE 1 TABLET BY MOUTH ONCE DAILY AT BEDTIME FOR CHOLESTEROL gabapentin 400 mg capsule 400 mg PO TID Patient Comments: TAKE 1 CAPSULE BY MOUTH THREE TIMES DAILY oxycodone-acetaminophen 5-325 mg tablet 1 - 2 tab PO Q6H PRN PRN (Reason: Pain) Patient Comments: TAKE 1 TO 2 TABLETS BY MOUTH EVERY 6 HOURS NEEDED FOR PAIN escitalopram oxalate [Lexapro] 20 mg tablet 20 mg PO DAILY Patient Comments: TAKE 1 TABLET BY MOUTH ONCE DAILY doxycycline monohydrate 100 mg capsule 100 mg PO BID Qty: 20 0RF prednisone 50 mg tablet 50 mg PO DAILY Qty: 5 0RF prednisone 20 mg tablet 40 mg PO DAILY Qty: 10 0RF hydrocodone-acetaminophen 5-325 mg tablet 1 tab PO Q6H PRN PRN (Reason: Pain) 3 Days Qty: 10 0RF Primary Care Provider: Chantal Barron NP Referrals: Uri Denise MD [Med Staff - Active Staff] - As Needed Chantal Barron NP, HUMAN MACHINE INTERFACE ENGINEER-C [Primary Care Provider] - Activity Restrictions/Additional Instructions: Continue to drink lots of fluids. If you develop a fever, worsening back pain, nausea or vomiting please return to the emergency room. Your urine is consistent with blood in the urine as well as infection. I suspect the infections was causing the blood in the urine. Will treat with a course of antibiotics. Please follow-up with your urologist or primary care doctor. If you do not have a urologist you been given referral for a local urologist. Disposition Disposition: Home, Self Care
[2023-11-28 23:18] LABS: Bacteria RARE /hpf (None Seen); Red Blood Cells-Urine > 100 SEEN /hpf (0-5); White Blood Cells 10-25 SEEN /hpf (0-5)
[2023-11-29] MEDS: Cephalexin 250 MG Capsule 500 MG PO (00:36)
[2023-11-29 00:37] VITALS: RESP 14
== END 2023-11-29 00:37 | disposition home or self-care (01) ==
PROVIDERS: Emergency Provider Emergency Medicine; PCP Registered Nurse; Visit Provider Emergency Medicine
DX: N39.0 Urinary tract infection, site not specified (principal); E11.9 Type 2 diabetes mellitus without complications; F17.210 Nicotine dependence, cigarettes, uncomplicated; I25.10 Atherosclerotic heart disease of native coronary artery without angina pectoris; R31.9 Hematuria, unspecified; N31.9 Neuromuscular dysfunction of bladder, unspecified; Z79.82 Long term (current) use of aspirin; Z79.02 Long term (current) use of antithrombotics/antiplatelets
CPT/HCPCS: 81001; 87077; 87086; 87088; 87186; 99282